=== PATIENT | male | born 1925 | race Caucasian/White ===

== ENCOUNTER 2016-09-23 14:24 | Emergency (ER) | payer BC ==
[~2016-09-23] VITALS: Ht 172.7 cm; Wt 74.4 kg
[~2016-09-23 14:24] MED LIST: BICA50TA6 PO; LEUP1INJ IM; LSX20 PO; ONDA-63 PO
[2016-09-23 14:30] VITALS: TEMP 36.4; Ht 172.7 cm; Wt 74.4 kg
[2016-09-23] MEDS ORDERED: OMEG10007 PO (14:39)
[2016-09-23] MEDS ORDERED: GABA-113 PO (14:39)
[2016-09-23] MEDS ORDERED: WARF5TAB7 PO (14:53)
[2016-09-23] MEDS ORDERED: MULT-506 PO (15:04)
[2016-09-23] MEDS ORDERED: LPRI75 INJ (15:45)
--- NOTE | 2016-09-23 16:08 | DIAGNOSTIC IMAGING REPORT ---
LUMBAR SPINE 5 VIEWS HISTORY: Trauma fall eval for fx COMPARISON: None. FINDINGS: There is no fracture. No subluxation. Significant degenerative disc change. Significant degenerative change of vertebral endplates. IMPRESSION: Significant degenerative change. No acute process. Electronically signed by: Sharad Langston M.D. 09/23/2016 4:07 PM Dictated Date/Time: 09/23/2016 4:06 PM
--- NOTE | 2016-09-23 16:09 | DIAGNOSTIC IMAGING REPORT ---
LEFT CLAVICLE CLINICAL HISTORY: left eval for fx trauma. Pain. COMPARISON: None. DISCUSSION: The bones and joint spaces appear intact. There is no evidence of fracture, dislocation or bony disease. Moderate degenerative change acromioclavicular joint. Cortical margins are intact. IMPRESSION: No acute process. Electronically signed by: Sharad Langston M.D. 09/23/2016 4:08 PM Dictated Date/Time: 09/23/2016 4:07 PM
--- NOTE | 2016-09-23 16:10 | DIAGNOSTIC IMAGING REPORT ---
LEFT ELBOW MIN 3 VIEWS ROUTINE CLINICAL HISTORY: fall eval for fx trauma. Pain. COMPARISON: None. DISCUSSION: The bones and joint spaces appear intact. There is no evidence of fracture, dislocation or bony disease. Mild degenerative change. Bone spur projecting from the proximal ulna. IMPRESSION: No acute bony abnormality Electronically signed by: Sharad Langston M.D. 09/23/2016 4:09 PM Dictated Date/Time: 09/23/2016 4:08 PM
[2016-09-23 16:26] VITALS: BP 116/78; PULSE 83; O2SAT 98
--- NOTE | 2016-09-23 17:39 | EMERGENCY ROOM VISIT NOTE ---
History Report prepared by Khushboo: Adelso Bullard Under the Supervision of: Dr. Lewis Garcia M.D. First contact with patient: 14:43 Chief Complaint: FALL Stated Complaint: SORE CLAVICAL AND LWR RIGHT BACK SIDE-FROM A FALL History of Present Illness The patient is an 89 year old male who presents to the Emergency Room with complaints of a persistent sore clavicle that started yesterday after a fall at 1000. The patient says that he was standing on a step stool trying to get something off the top shelf of a closet, when he lost his balance and fell onto his left arm and shoulder. He lives at the [facility], so he had one of the nurses put a bandage on his left elbow. Ever since the fall, he has had a sore clavicle and lower back pain. He states that his lower back pain is in the muscles. Yesterday, he had bilateral lower back pain, but today, the pain has localized to the lower right side. The patient did have elbow pain for a few hours after the fall, but the pain has gone away. He denies any loss of consciousness, headache, neck pain, hip pain, or hematuria. He did not hit his head. The patient is on Coumadin. He has atrial fibrillation. Source of History: patient Onset: Yesterday at 1000 Position: other (clavicle) Quality: other (soreness) Timing: other (persistent) Associated Symptoms: + back pain (lower), No LOC, No headache, No neck pain , No urinary symptoms (hematuria) Note: Associated symptoms: Had left elbow pain for a few hours after the fall. Denies hip pain. Review of Systems See HPI for pertinent positives & negatives. A total of 10 systems reviewed and were otherwise negative. Past Medical & Surgical Medical Problems: (1) Atrial fibrillation (2) CHF (congestive heart failure) (3) DVT (deep venous thrombosis) (4) H/O blood clots (5) Heart disease (6) Lyme disease (7) Mantle cell lymphoma (8) Non-Hodgkin lymphoma (9) Prostate cancer (10) Shingles Surgical Problems: (1) H/O prostatectomy (2) S/P appendectomy Family History Diabetes mellitus FH: cancer FH: heart disease FH: lung disease Hypertension Social History Smoking Status: Never Smoker Alcohol Use: occasionally Marital Status: Housing Status: lives alone Occupation Status: unemployed Current/Historical Medications Scheduled Bicalutamide (Casodex), 50 MG PO DAILY Calcium Carbonate-Vitamin D (Calcium + D), 1 TAB PO DAILY Fish Oil ([place]-3), 1 CAP PO DAILY Gabapentin (Neurontin), 300 MG PO BID Leuprolide Acetate (Lupron Depot), 7.5 MG INJ Q4MO Multivitamin (Multivitamin), 1 TAB PO DAILY Warfarin Sod (Jantoven), 7.5 MG PO 4XWK Warfarin Sodium (Coumadin), 5 MG PO 3XWK Scheduled PRN Furosemide (Furosemide), 0-40 MG PO DAILY PRN for Weight Gain Of 3# Ondansetron (Ondansetron HCl), 8 MG PO UD PRN for Nausea or Vomiting Allergies Coded Allergies: Acetazolamide (Verified Allergy, Unknown, Diamox Eye Drops ? rxn, 12/14/14) Physical Exam Vital Signs Date Time Temp Pulse Resp B/P Pulse Ox O2 Delivery O2 Flow Rate FiO2 09/23/16 16:26 83 16 116/78 98 09/23/16 14:30 36.4 80 18 119/82 99 Room Air Physical Exam Constitutional: Vital signs reviewed. Eyes: Pupils are equal round reactive to light. Conjunctiva are noninjected. ENT: Pharynx is clear without erythema or exudate. Mucous membranes are moist. Neck supple without meningeal signs. Respiratory: Clear to auscultation bilaterally. Breath sounds are equal bilaterally. Cardiovascular: Regular rate and rhythm. No rubs or gallops. GI: Soft, nondistended and nontender. Bowel sounds are present. Musculoskeletal: No peripheral edema. No lower extremity tenderness. Proximal clavicular tenderness. No sternal tenderness. No midline tenderness to cervical, thoracic, or lumbosacral spine. No hip tenderness. Integumentary: No cyanosis. Skin tear left elbow. Neurological: The patient is awake and alert. No focal deficits. Psychiatric: Normal affect. Medical Decision & Procedures ER Provider Diagnostic Interpretation: X-ray results as stated below per interpretation by me and the radiologist: LUMBAR SPINE 5 VIEWS HISTORY: Trauma fall eval for fx COMPARISON: None. FINDINGS: There is no fracture. No subluxation. Significant degenerative disc change. Significant degenerative change of vertebral endplates. IMPRESSION: Significant degenerative change. No acute process. Electronically signed by: Sharad Langston M.D. 09/23/2016 4:07 PM Dictated Date/Time: 09/23/2016 4:06 PM LEFT ELBOW MIN 3 VIEWS ROUTINE CLINICAL HISTORY: fall eval for fx trauma. Pain. COMPARISON: None. DISCUSSION: The bones and joint spaces appear intact. There is no evidence of fracture, dislocation or bony disease. Mild degenerative change. Bone spur projecting from the proximal ulna. IMPRESSION: No acute bony abnormality Electronically signed by: Sharad Langston M.D. 09/23/2016 4:09 PM Dictated Date/Time: 09/23/2016 4:08 PM LEFT CLAVICLE CLINICAL HISTORY: left eval for fx trauma. Pain. COMPARISON: None. DISCUSSION: The bones and joint spaces appear intact. There is no evidence of fracture, dislocation or bony disease. Moderate degenerative change acromioclavicular joint. Cortical margins are intact. IMPRESSION: No acute process. Electronically signed by: Sharad Langston M.D. 09/23/2016 4:08 PM Dictated Date/Time: 09/23/2016 4:07 PM ED Course 1447: The patient was evaluated in room B2. A complete history and physical exam was performed. 1614: I reevaluated the patient and talked to him about his test results. He is resting comfortably. The patient verbally expressed understanding and agreement of the treatment plan. The patient will be discharged. Medical Decision This is an 89-year-old male who presents with injuries after a fall. Differential diagnosis includes contusion, strain, compression fracture, clavicular fracture. I did perform a limited focused review of portions of the patient's old chart on the electronic medical record. The patient had an INR of 2.2 on August 22. I did evaluate the patient as noted above. Patient had a mechanical fall yesterday. He injured his left arm and his back. He denies any head injury or headache. He denies any neck pain. I did order and personally review the patient's x-rays as described above. The patient does not have any acute fractures. I did discuss the test results with the patient. I did recommend Tylenol for pain. He was given an arm sling and advised follow up with his doctor. He was discharged in good condition. Impression Primary Impression: Left upper arm injury Additional Impressions: Low back pain Fall Scribe Attestation The scribe's documentation has been prepared under my direct and personally reviewed by me in its entirety. I confirm that the note above accurately reflects all work, treatment, procedures, and medical decision making performed by me. Departure Information Dispostion Home / Self-Care Referrals No Doctor, Assigned (PCP) Zechariah Johnson M.D. Forms HOME CARE DOCUMENTATION FORM, IMPORTANT VISIT INFORMATION Patient Instructions Low Back Pain Self Care, My [facility] Additional Instructions You have been examined and treated today on an emergency basis only. This is not a substitute for, or an effort to provide, complete comprehensive medical care. It is impossible to recognize and treat all injuries or illnesses in a single emergency department visit. It is therefore important that you follow up closely with your physician. Call as soon as possible for an appointment. Return for worsening symptoms or if you develop fever, vomiting, headache or numbness or weakness in your arms or legs or any other concerning symptoms. Problem Qualifiers Primary Impression: Left upper arm injury Encounter type: initial encounter Qualified Codes: S49.92XA - Unspecified injury of left shoulder and upper arm, initial encounter Additional Impressions: Low back pain Chronicity: acute Back pain laterality: right Sciatica presence: without sciatica Qualified Codes: M54.5 - Low back pain Fall Encounter type: initial encounter Qualified Codes: W19.XXXA - Unspecified fall, initial encounter
[2016-09-23] MEDS ORDERED: CALC600T9 PO (18:29)
[2016-12-24] MEDS ORDERED: WARF5TAB90 PO (13:59)
[2017-04-22] MEDS ORDERED: LIDOCAINE HCL EXT (11:34)
[2017-04-22] MEDS ORDERED: CMD5 PEG (11:34)
[2017-04-22] MEDS ORDERED: VSC/5 PO (11:34)
== END 2016-09-23 15:35 | disposition home or self-care (01) ==
LOC: C.EDB 14:25
DX: S49.92XA Unspecified injury of left shoulder and upper arm, initial encounter (principal); W19.XXXA Unspecified fall, initial encounter; M54.5 Low back pain; Z79.01 Long term (current) use of anticoagulants; I48.91 Unspecified atrial fibrillation; Z86.718 Personal history of other venous thrombosis and embolism; Z85.46 Personal history of malignant neoplasm of prostate; Z85.72 Personal history of non-Hodgkin lymphomas; Z90.79 Acquired absence of other genital organ(s); Z79.899 Other long term (current) drug therapy

== ENCOUNTER → 2016-10-11 | Outpatient (CLI) | payer BC ==
[~2016-10-11] MED LIST changes: +CALC600T9 PO; +CMD5 PEG; +GABA-113 PO; -LEUP1INJ IM; +LIDOCAINE HCL EXT; +LPRI75 INJ; +MULT-506 PO; +OMEG10007 PO; +VSC/5 PO; +WARF5TAB7 PO; +WARF5TAB90 PO
== END | disposition home or self-care (01) ==
LOC: C.LABSPEC 17:47
PROVIDERS: ATTEND Physician Assistant
DX: S51.802A Unspecified open wound of left forearm, initial encounter (principal); X58.XXXA Exposure to other specified factors, initial encounter; Z51.81 Encounter for therapeutic drug level monitoring; Z79.01 Long term (current) use of anticoagulants; I82.409 Acute embolism and thrombosis of unspecified deep veins of unspecified lower extremity

== ENCOUNTER → 2017-02-13 | Outpatient (CLI) | payer BC ==
[~2017-02-13] MED LIST changes: -WARF5TAB7 PO
--- NOTE | 2017-02-13 17:00 | DIAGNOSTIC IMAGING REPORT ---
L-SPINE MIN 4 VIEWS ROUTINE CLINICAL HISTORY: 89 years-old Male presenting with low back pain, fall one week ago. TECHNIQUE: Frontal, bilateral oblique, and lateral views of the lumbar spine and coned-down lateral view of the lumbosacral junction were obtained. COMPARISON: 10/03/2016. FINDINGS: Vertebral body heights and alignment maintained. Intervertebral disc height loss at L5-S1 as on prior exam. Possible mild bilateral osseous neural foraminal narrowing at L5 S1. Mild endplate concavities could suggest osteoporosis. Mild degenerative changes with anterior osteophytosis. Numerous surgical clips noted in the pelvis, possibly from prior prostatectomy. Atherosclerosis. Nonobstructive bowel gas pattern. IMPRESSION: Degenerative changes of the lumbar spine most severe at L5-S1. Suggestion of osteoporosis without evidence of compression deformity. Electronically signed by: Sameer Owusu M.D. 02/13/2017 4:58 PM Dictated Date/Time: 02/13/2017 4:56 PM
== END | disposition home or self-care (01) ==
LOC: C.RAD1850 16:22
PROVIDERS: ATTEND Internal Medicine Pulmonary Disease
DX: M54.5 Low back pain (principal); Z51.81 Encounter for therapeutic drug level monitoring; Z79.01 Long term (current) use of anticoagulants; I82.409 Acute embolism and thrombosis of unspecified deep veins of unspecified lower extremity

== ENCOUNTER → 2017-02-26 | Outpatient (CLI) | payer BC ==
[2017-02-26 15:42] LABS: BASO % 0.5 %; BASO ABS # 0.03 K/uL (0-0.2); COMPLETE YES; EOS % 3.8 %; HEMATOCRIT 43.9 % (42-52); IG% 0.2 %; LYMPH % 27.3 %; LYMPH ABS # 1.72 K/uL (1.2-3.4); MEAN CELL VOLUME 95.2 fL (80-100); MEAN CORPUSCULAR HEMOGLOBIN 30.6 pg (25-34); MEAN CORPUSCULAR HGB CONC 32.1 g/dl (32-36); MEAN PLATELET VOLUME 11.4 fL (7.4-10.4); MONO % 7.9 %; NEUT % 60.3 %; PLATELET COUNT 212 K/uL (130-400); RED BLOOD COUNT 4.61 M/uL (4.7-6.1)
[2017-02-26 16:08] LABS: ALT/SGPT 36 U/L (12-78); BLOOD UREA NITROGEN 26 mg/dl (7-18); BUN/CREATININE RATIO 20.2 (10-20); CALCIUM 9.3 mg/dl (8.5-10.1); CARBON DIOXIDE 32 mmol/L (21-32); CHLORIDE 103 mmol/L (98-107); GLUCOSE 123 mg/dl (70-99); POTASSIUM 4.3 mmol/L (3.5-5.1); SODIUM 140 mmol/L (136-145)
[2017-02-26 16:10] LABS: ALKALINE PHOSPHATASE 179 U/L (45-117); AST/SGOT 31 U/L (15-37)
[2017-02-26 16:44] LABS: URINE APPEARANCE CLEAR (CLEAR); URINE BILIRUBIN NEG (NEG); URINE COLOR YELLOW; URINE EPITHELIAL CELL AUTO >30 /lpf (0-5); URINE NITRITE NEG (NEG); URINE SPECIFIC GRAVITY 1.021 (1.000-1.030); UROBILINOGEN NEG (NEG)
[2017-02-26 16:49] LABS: MANUAL MICROSCOPIC REQUIRED? NO; REVIEW REQ? NO
== END | disposition home or self-care (01) ==
LOC: C.LAB1850 14:13
PROVIDERS: ATTEND Physician Assistant Medical
DX: R39.9 Unspecified symptoms and signs involving the genitourinary system (principal); R53.83 Other fatigue

== ENCOUNTER 2017-03-01 16:09 | Emergency (ER) | payer BC ==
[~2017-03-01] VITALS: Ht 175.3 cm; Wt 78.2 kg
[~2017-03-01 16:09] MED LIST changes: -CMD5 PEG; -LIDOCAINE HCL EXT; -VSC/5 PO
[2017-03-01 16:24] VITALS: TEMP 36.4; Ht 175.3 cm; Wt 78.2 kg
[2017-03-01] MEDS ORDERED: SODIUM CHLORIDE 0.9% 1000ML 1,000 ML IV ONE (17:57)
[2017-03-01] MEDS ORDERED: SODIUM CHLORIDE 0.9% 1000ML 500 ML IV STA (17:57)
--- NOTE | 2017-03-01 18:15 | DIAGNOSTIC IMAGING REPORT ---
CHEST ONE VIEW PORTABLE HISTORY: Atypical CHEST PAIN COMPARISON: Chest 04/05/2016. FINDINGS: No focal lung consolidations to suggest pneumonia. No evidence for pulmonary edema. No pleural effusions. No pneumothorax. The heart remains mildly enlarged. Old, healed right rib fractures. IMPRESSION: Stable mild cardiomegaly. No acute process within the chest. Electronically signed by: Joseph Cr M.D. 03/01/2017 6:14 PM Dictated Date/Time: 03/01/2017 6:13 PM
[2017-03-01] MEDS ORDERED: WARF5TAB90 PO (18:29)
[2017-03-01 18:44] LABS: POINT OF CARE PRO-BNP 1632 pg/ml (0-1800); POINT OF CARE TROPONIN I < 0.030 ng/ml (0-0.045)
[2017-03-01 18:49] LABS: URINE APPEARANCE CLEAR (CLEAR); URINE BILIRUBIN NEG (NEG); URINE COLOR YELLOW; URINE EPITHELIAL CELL AUTO >30 /lpf (0-5); URINE NITRITE NEG (NEG); URINE PH 6.5 (4.5-7.5); URINE SPECIFIC GRAVITY 1.013 (1.000-1.030); UROBILINOGEN NEG (NEG)
[2017-03-01 18:52] LABS: MANUAL MICROSCOPIC REQUIRED? NO; REVIEW REQ? NO
[2017-03-01 19:11] LABS: BUN/CREATININE RATIO 21.1 (10-20); CALCIUM 9.7 mg/dl (8.5-10.1); CREATININE 1.4 mg/dl (0.60-1.40); POTASSIUM 4.4 mmol/L (3.5-5.1)
[2017-03-01 21:01] VITALS: BP 160/103; PULSE 82; O2SAT 98
--- NOTE | 2017-03-01 23:57 | EMERGENCY ROOM VISIT NOTE ---
History Report prepared by Khushboo: Yessi Dawn Under the Supervision of: Dr. Farshad Ku M.D. First contact with patient: 17:47 Chief Complaint: HYPOTENSION Stated Complaint: LOW BP,MT&W,LIGHTHEADED,DEHYDRATED History of Present Illness The patient is an 89 year old male who presents to the Emergency Room with complaints of persistent low blood pressure starting 4 days ago. He has had episodes of low blood pressure 3-4 times in the past. He saw his PCP yesterday and had blood work. He received a call today saying that he should go to the ED over concerns of dehydration and kidney problems. He reports feeling lightheaded at times especially with standing up. He has had dysuria for a couple weeks. He denies any fever, black or bloody stools, chest pain, SOB, or abdominal pain. He denies any recent falls or injury. He believes that he is keeping up with his fluids, but his family does not think he does. He has a history of CHF and is on a diuretic. He does not have more leg swelling than usual. He denies any history of diabetes. Source of History: patient, family Onset: 4 days ago Position: other (global) Quality: other (low blood pressure) Timing: other (persistent) Associated Symptoms: + urinary symptoms, No fevers, No chest pain, No SOB, No abdominal pain, No melena, No hematochezia Note: Pt reports feeling lightheaded, dysuria. Review of Systems See HPI for pertinent positives & negatives. A total of 10 systems reviewed and were otherwise negative. Past Medical & Surgical Medical Problems: (1) Atrial fibrillation (2) CHF (congestive heart failure) (3) DVT (deep venous thrombosis) (4) H/O blood clots (5) Heart disease (6) Lyme disease (7) Mantle cell lymphoma (8) Non-Hodgkin lymphoma (9) Prostate cancer (10) Shingles Surgical Problems: (1) H/O prostatectomy (2) S/P appendectomy Old medical records were reviewed. Nurse's notes were reviewed and I agree with. Family History Diabetes mellitus FH: cancer FH: heart disease FH: lung disease Hypertension Social History Smoking Status: Never Smoker Alcohol Use: occasionally Marital Status: Housing Status: lives alone Occupation Status: unemployed Current/Historical Medications Scheduled Bicalutamide (Casodex), 50 MG PO DAILY Calcium Carbonate-Vitamin D (Calcium + D), 1 TAB PO DAILY Fish Oil ([place]-3), 1 CAP PO DAILY Gabapentin (Neurontin), 300 MG PO BID Leuprolide Acetate (Lupron Depot), 7.5 MG INJ Q4MO Multivitamin (Multivitamin), 1 TAB PO DAILY Warfarin Sodium (Coumadin), 5 MG PO 6XWK Warfarin Sodium (Coumadin), 7.5 MG PO tues Scheduled PRN Furosemide (Furosemide), 0-40 MG PO DAILY PRN for Weight Gain Of 3# Ondansetron (Ondansetron HCl), 8 MG PO UD PRN for Nausea or Vomiting Allergies Coded Allergies: Acetazolamide (Verified Allergy, Unknown, Diamox Eye Drops ? rxn, 03/01/17) Physical Exam Vital Signs Date Time Temp Pulse Resp B/P (MAP) Pulse Ox O2 Delivery O2 Flow Rate FiO2 03/01/17 21:01 82 18 160/103 98 03/01/17 18:53 83 18 179/91 97 Room Air 03/01/17 16:24 36.4 77 16 130/82 100 Room Air Physical Exam General: Non ill appearing older male in no acute distress. Well developed well nourished, breathing comfortably on room air. Normal speech HEENT: Normal cephalic atraumatic. Pupils are equal round and reactive to light. Extraocular movements are intact. Oropharynx is pink with moist mucous membranes. No swelling of the mouth lips or tongue. Neck: Supple with a midline trachea. No meningeal signs or stiffness, no JVD or bruits. No Stridor. Chest: Clear to auscultation bilaterally. No wheezes or rhonchi. No increased work of breathing. Heart: regular rate and rhythm. Abdomen: Soft nontender, nondistended without rebound guarding or rigidity. Extremities: No cyanosis clubbing. Mild baseline peripheral edema. No calf tenderness or assymetry Spine/Back. Non tender to palpation. No CVA tenderness Skin: Good turgor without rashes. Neurologic exam: Cranial nerves two through 12 are intact. Motor and sensation are intact and symmetrical throughout. Medical Decision & Procedures ER Provider Diagnostic Interpretation: X-ray results as stated below per interpretation by me and the radiologist: CHEST ONE VIEW PORTABLE HISTORY: Atypical CHEST PAIN COMPARISON: Chest 04/05/2016. FINDINGS: No focal lung consolidations to suggest pneumonia. No evidence for pulmonary edema. No pleural effusions. No pneumothorax. The heart remains mildly enlarged. Old, healed right rib fractures. IMPRESSION: Stable mild cardiomegaly. No acute process within the chest. Electronically signed by: Joseph Cr M.D. 03/01/2017 6:14 PM Dictated Date/Time: 03/01/2017 6:13 PM Laboratory Results 03/01/17 18:18 Test 03/01/17 18:18 03/01/17 18:25 Anion Gap 7.0 mmol/L (3-11) Est Creatinine Clear Calc Drug Dose 35.8 ml/min Estimated GFR () 51.3 Estimated GFR (Non- 44.2 BUN/Creatinine Ratio 21.1 (10-20) Calcium Level 9.7 mg/dl (8.5-10.1) Total Bilirubin 0.8 mg/dl (0.2-1) Direct Bilirubin 0.2 mg/dl (0-0.2) Aspartate Amino Transf (AST/SGOT) 30 U/L (15-37) Alanine Aminotransferase (ALT/SGPT) 33 U/L (12-78) Alkaline Phosphatase 182 U/L (45-117) Total Protein 7.7 gm/dl (6.4-8.2) Albumin 3.8 gm/dl (3.4-5.0) Lipase 173 U/L (73-393) Urine Color YELLOW Urine Appearance CLEAR (CLEAR) Urine pH 6.5 (4.5-7.5) Urine Specific [place] 1.013 (1.000-1.030) Urine Protein NEG (NEG) Urine Glucose (UA) NEG (NEG) Urine Ketones NEG (NEG) Urine Occult Blood NEG (NEG) Urine Nitrite NEG (NEG) Urine Bilirubin NEG (NEG) Urine Urobilinogen NEG (NEG) Urine Leukocyte Esterase SMALL (NEG) Urine WBC (Auto) 10-30 /hpf (0-5) Urine RBC (Auto) 0-4 /hpf (0-4) Urine Hyaline Casts (Auto) 1-5 /lpf (0-5) Urine Epithelial Cells (Auto) >30 /lpf (0-5) Urine Bacteria (Auto) NEG (NEG) Bedside Troponin I < 0.030 ng/ml (0-0.045) PE-[id number]-[id number]-Type Natriuretic Peptide 1632 pg/ml (0-1800) Laboratory studies as stated above per my review. Medications Administered Medications (Trade) Dose Ordered Sig/Cj Route Start Time Stop Time Status Last Admin Dose Admin Sodium Chloride 500 ml @ 999 mls/hr Q31M STAT IV 03/01/17 17:57 03/01/17 18:27 DC 03/01/17 18:52 999 MLS/HR Sodium Chloride 1,000 ml @ 150 mls/hr Q6H40M ONCE IV 03/01/17 17:57 03/01/17 21:23 DC 03/01/17 19:23 150 MLS/HR ECG Indication: weakness Rate (beats per minute): 76 Rhythm: atrial fibrillation Findings: PVC, other (nonspecific T wave abnormality) Comparison ECG Date: 12-Oct-2015 Change: no significant change ED Course 174: Past medical records reviewed. The patient was evaluated in room C12A, and a complete history and physical examination were performed. 1756: NSS 1000 ml @ 150 mls/hr IV, NSS 500 ml @ 999 mls/hr IV. 2018: Upon reevaluation, the patient is doing well. I discussed the results and treatment plan with him and his family. They verbalized agreement of the treatment plan. The patient was discharged home. Medical Decision Differentials include, but are not limited to; dehydration, electrolyte or metabolic abnormality, arrhythmia, infection, anemia. This patient comes in as described above. He was placed on crystal report developer and room [facility] by his doctor for IV hydration. His BUN/creatinine been mildly elevated compared to baseline. He apparently was hypotensive early the week but is normotensive here. He looks great and he has no complaints. He has had no chest pain or shortness of breath . No fever or chills or anything to suggest infection. His white count earlier today was normal. His hemoglobin was stable as well. He had an INR checked yesterday was in the 3 range. he's had no fall or trauma . he's had no blood or melena in his stool. He has had no abdominal pain or anything to suggest he is losing blood anywhere. EKG shows baseline A. fib but has no acute ischemic changes or other arrhythmia. He has no other significant lab abnormalities. He was gently hydrated with a 500 mL IV normal saline bolus and received approximately about 750 mL total. His lungs were are clear and his chest x-ray does not show overt CHF. He feels good and would like to go home. I will discharge him home. He should increase his fluid intake slightly over this weekend and return if: fever or chills, worsening of symptoms, any new problems or concerns and follow-up with his doctor Saturday for recheck. He was happy the plan and discharged to home. Medication Reconcilliation Current Medication List: was personally reviewed by me Blood Pressure Screening Patient's blood pressure: Normal blood pressure Blood pressure disposition: Did not require urgent referral Impression Primary Impression: Dehydration Scribe Attestation The scribe's documentation has been prepared under my direction and personally reviewed by me in its entirety. I confirm that the note above accurately reflects all work, treatment, procedures, and medical decision making performed by me. Departure Information Dispostion Home / Self-Care Referrals Zechariah Johnson M.D. (PCP) Forms HOME CARE DOCUMENTATION FORM, IMPORTANT VISIT INFORMATION, WORK / SCHOOL INSTRUCTIONS Patient Instructions My [facility] Additional Instructions Rest. Increased fluid intake over the weekend Be careful getting up and down. Return if: Worsening of symptoms, chest pain, shortness of breath, dizziness, blood in your stool, pain, any new problems or concerns Follow-up with your doctor on Saturday for recheck
[2017-04-22] MEDS ORDERED: LIDOCAINE HCL EXT (11:34)
[2017-04-22] MEDS ORDERED: VSC/5 PO (11:34)
[2017-04-22] MEDS ORDERED: CMD5 PEG (11:34)
== END 2017-03-01 21:01 | disposition home or self-care (01) ==
LOC: C.EDB 16:10 → C.EDC 21:01
DX: E86.0 Dehydration (principal); I50.9 Heart failure, unspecified; I48.91 Unspecified atrial fibrillation; Z86.718 Personal history of other venous thrombosis and embolism; Z85.72 Personal history of non-Hodgkin lymphomas; Z85.46 Personal history of malignant neoplasm of prostate; Z90.79 Acquired absence of other genital organ(s); Z83.3 Family history of diabetes mellitus; Z80.9 Family history of malignant neoplasm, unspecified; Z82.49 Family history of ischemic heart disease and other diseases of the circulatory system; Z79.01 Long term (current) use of anticoagulants; Z79.899 Other long term (current) drug therapy; R79.9 Abnormal finding of blood chemistry, unspecified

== ENCOUNTER → 2017-03-01 | Outpatient (CLI) | payer BC ==
[2017-03-01 15:04] LABS: BLOOD UREA NITROGEN 30 mg/dl (7-18); BUN/CREATININE RATIO 20.1 (10-20); CALCIUM 9.6 mg/dl (8.5-10.1); CARBON DIOXIDE 28 mmol/L (21-32); CHLORIDE 104 mmol/L (98-107); GLUCOSE 159 mg/dl (70-99); POTASSIUM 4.4 mmol/L (3.5-5.1); SODIUM 140 mmol/L (136-145)
== END | disposition home or self-care (01) ==
LOC: C.LAB1850 13:44
PROVIDERS: ATTEND Physician Assistant Medical
DX: R79.9 Abnormal finding of blood chemistry, unspecified (principal)

== ENCOUNTER → 2017-04-04 | Outpatient (CLI) | payer BC ==
[2017-04-02 13:59] LABS: ALT/SGPT 28 U/L (12-78); BLOOD UREA NITROGEN 23 mg/dl (7-18); BUN/CREATININE RATIO 20.5 (10-20); CALCIUM 9.5 mg/dl (8.5-10.1); CARBON DIOXIDE 30 mmol/L (21-32); CHLORIDE 104 mmol/L (98-107); GLUCOSE 99 mg/dl (70-99); POTASSIUM 3.8 mmol/L (3.5-5.1); SODIUM 140 mmol/L (136-145)
[2017-04-02 14:09] LABS: ALKALINE PHOSPHATASE 163 U/L (45-117); AST/SGOT 33 U/L (15-37); FREE PSA 0.03 ng/ml; PROSTATE SPECIFIC ANTIGEN 0.284 ng/ml (0.000-4.000)
[~2017-04-04] MED LIST changes: +CEPH500C PO; +CMD5 PEG; +ENOX40IN SQ; +LIDOCAINE HCL EXT; +OPTIRAY 320 IV PRN; +PHEN-775 PO; +VSC/5 PO
--- NOTE | 2017-04-04 09:13 | DIAGNOSTIC IMAGING REPORT ---
ADDENDUM Possible focus of asymmetric enhancement at the right side of the junction of the bladder base/urethra best seen on image 402. This measures approximately 12 mm. This could be due to collapse of the normal bladder base. However, a focal area of tumor recurrence given the patient's history of prostate malignancy cannot be excluded. This may account for the patient's possible bladder outlet obstruction. Direct visualization is recommended for further evaluation. This finding was called/faxed to the referring physician's office. Electronically signed by: Joseph Cr M.D. 04/04/2017 9:22 AM Dictated Date/Time: 04/04/2017 9:19 AM ORIGINAL REPORT ABDOMEN AND PELVIS CT WITH AND WITHOUT IV CONTRAST, UROGRAM PROTOCOL CT DOSE: 1471.26 mGycm HISTORY: HEMATURIA,INCONTINENCE,NEOPLASM OF PROSTATE TECHNIQUE: Multiaxial CT images of the abdomen and pelvis were performed both before and after the use of intravenous contrast to evaluate the urinary system. Maximal intensity projection images were performed at the workstation by the radiologist. A dose lowering technique was utilized adhering to the principles of ALARA. COMPARISON STUDY: Abdomen and pelvis CT 08/10/2010. FINDINGS: No renal or ureteral calculi. No hydronephrosis. No suspicious filling defects seen within the bilateral renal collecting systems, ureters, or bladder. Of note, the distal bilateral ureters and bladder not well opacified. Moderate to severe bladder distention. Old mild superior endplate compression deformity at L2. A 4 mm subpleural nodule within the right middle lobe on image 28. Mild dependent changes seen at the lung bases. Calcified granuloma within the left lower lobe. Bilateral posterior pleural thickening. No suspicious lytic or blastic osseous lesions. The heart is mildly enlarged. There are few diverticula at the duodenum. Calcified gallstone. Punctate calcified granuloma seen within the spleen. Slightly nodular contour to the liver consistent with cirrhosis. The adrenal glands and pancreas are unremarkable. Mild bilateral cortical renal scarring. Otherwise, the kidneys enhance normally. Subcentimeter retroperitoneal lymph nodes do not meet CT criteria for pathologic involvement. Moderate calcified plaque within the arterial structures. No pelvic lymphadenopathy. Postoperative changes consistent with prior prostatectomy and pelvic lymph node dissection. Colonic diverticulosis. No bowel wall thickening or obstruction. IMPRESSION: 1. No renal or ureteral stones. No hydronephrosis. 2. No suspicious filling defects seen within the opacified bilateral renal collecting systems, ureters, or bladder as described above. 3. Moderate to severe bladder distention. 4. Prior prostatectomy. 5. Cholelithiasis. 6. Slightly nodular contour to the liver consistent with cirrhosis. 7.. Colonic diverticulosis Electronically signed by: Joseph Cr M.D. 04/04/2017 9:12 AM Dictated Date/Time: 04/04/2017 9:00 AM
[2017-04-06 10:32] LABS: TESTOSTERONE,TOTAL <1 ng/dL (250-1100)
== END | disposition home or self-care (01) ==
LOC: C.CTS 08:21
PROVIDERS: ATTEND Urology
DX: C61 Malignant neoplasm of prostate (principal); R31.29 Other microscopic hematuria; R32 Unspecified urinary incontinence; K57.90 Diverticulosis of intestine, part unspecified, without perforation or abscess without bleeding; K80.20 Calculus of gallbladder without cholecystitis without obstruction; N32.89 Other specified disorders of bladder

== ENCOUNTER → 2017-04-08 | Outpatient (CLI) | payer BC ==
[~2017-04-08] MED LIST changes: -CEPH500C PO; -ENOX40IN SQ; -OPTIRAY 320 IV PRN; -PHEN-775 PO
== END | disposition home or self-care (01) ==
LOC: C.LABSPEC 17:29
PROVIDERS: ATTEND Urology
DX: C61 Malignant neoplasm of prostate (principal); R31.29 Other microscopic hematuria; R32 Unspecified urinary incontinence

== ENCOUNTER → 2017-04-22 | Outpatient (CLI) | payer BC ==
--- NOTE | 2017-04-22 14:19 | DIAGNOSTIC IMAGING REPORT ---
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 COMPARISON: PET CT 09/28/2015. FINDINGS: Possible small foci of radiotracer uptake seen within the right anterior and lateral ribs. These have the typical appearance of old fractures. Sternoclavicular, right knee, and ankle radiotracer uptake favors degenerative change. Small focal areas of radiotracer uptake seen within the thoracic and lumbar spine which is nonspecific but also favors degenerative change. No suspicious areas of radiotracer uptake seen within the axial or appendicular skeleton. IMPRESSION: 1. No suspicious areas of radiotracer uptake seen within the axial or appendicular skeleton to suggest metastatic disease. 2. Additional foci of radiotracer uptake favor posttraumatic and degenerative changes. Electronically signed by: Joseph Cr M.D. 04/22/2017 2:18 PM Dictated Date/Time: 04/22/2017 2:16 PM
== END | disposition home or self-care (01) ==
LOC: C.NUCL 10:00
PROVIDERS: ATTEND Urology
DX: C61 Malignant neoplasm of prostate (principal); R31.0 Gross hematuria; R33.9 Retention of urine, unspecified; R93.7 Abnormal findings on diagnostic imaging of other parts of musculoskeletal system

== ENCOUNTER → 2017-05-10 | Outpatient (CLI) | payer BC ==
[~2017-05-10] MED LIST changes: +CEPH500C PO; -CMD5 PEG; +ENOX40IN SQ; +HYDR-5688 PO; -ONDA-63 PO; +PHEN-775 PO; -WARF5TAB90 PO
[2017-05-10 09:50] LABS: INR 1.1 (0.9-1.1); PROTHROMBIN TIME (PATIENT) 11.4 SECONDS (9.0-12.0)
== END ==
LOC: C.LABVPSUA 09:10
PROVIDERS: ATTEND Internal Medicine Critical Care Medicine
DX: I48.91 Unspecified atrial fibrillation (principal)

== ENCOUNTER → 2017-05-13 | Outpatient (CLI) | payer BC ==
[~2017-05-13] MED LIST changes: +LEUP30IN3 IM; +WARF5TAB90 PO; +WARF7.5T PO
[2017-05-13 10:28] LABS: INR 1.1 (0.9-1.1); PROTHROMBIN TIME (PATIENT) 12.2 SECONDS (9.0-12.0)
== END | disposition home or self-care (01) ==
LOC: C.LABVPSUA 09:38
PROVIDERS: ATTEND Internal Medicine Critical Care Medicine
DX: I48.91 Unspecified atrial fibrillation (principal)

== ENCOUNTER → 2017-05-16 | Outpatient (CLI) | payer BC ==
[2017-05-16 09:26] LABS: INR 1.6 (0.9-1.1)
== END | disposition home or self-care (01) ==
LOC: C.LABVPSUA 08:53
PROVIDERS: ATTEND Internal Medicine Critical Care Medicine
DX: I48.91 Unspecified atrial fibrillation (principal)

== ENCOUNTER → 2017-06-03 | Outpatient (CLI) | payer BC ==
[~2017-06-03] MED LIST changes: -CEPH500C PO; -ENOX40IN SQ; -HYDR-5688 PO; -LIDOCAINE HCL EXT; -LPRI75 INJ; +OPTIRAY 320 IV PRN; -PHEN-775 PO; -VSC/5 PO
--- NOTE | 2017-06-03 15:20 | DIAGNOSTIC IMAGING REPORT ---
ADDENDUM ADDITIONAL FINDINGS: Upon further review a focal segment of small bowel is noted in the superior anterior pelvis which demonstrate significant wall thickening. The segment of involved small bowel is not extensive in length measuring approximately less than 10 cm. No narrowing of the lumen. Mild overall expansion of the bowel diameter. No other sites of small bowel wall thickening evident. Mild perienteric fat stranding most evident along the mesenteric aspect where there is associated multiple small lymph nodes. ADDITIONAL IMPRESSION: 5. Focal segment of small bowel wall thickening with associated prominent lymph nodes and mild fat infiltration. Differential considerations include lymphomatous involvement versus enteritis. Neoplastic involvement by lymphoma is favored given the appearance and focality. This finding was discussed by Dr. Carpenter with Dr. Gillespie on the . Electronically signed by: Sameer Owusu M.D. 06/04/2017 6:04 PM Dictated Date/Time: 06/04/2017 6:02 PM ORIGINAL REPORT ABD/PELVIS IV AND ORAL CONT CLINICAL HISTORY: 89 years-old Male presenting with LYMPHOMA. TECHNIQUE: Multidetector CT of the abdomen and pelvis was performed after the administration of oral and intravenous contrast. IV contrast: 93 mL of Optiray 320. A dose lowering technique was used consistent with the principles of ALARA (as low as reasonably achievable). COMPARISON: 04/04/2017. CT DOSE (mGy.cm): The estimated cumulative dose is 692.20 mGy.cm. FINDINGS: Instrument Inspector topogram: Unremarkable. Lung bases: Minimal dependent changes likely atelectasis. Mosaic attenuation at the lung bases suggest small airways disease. Calcified granuloma noted in the left lower lobe. Multichamber enlargement of the heart. Aortic valve, mitral annular, and coronary artery calcification. No pericardial or pleural effusion. Liver: Mild macronodular undersurface of the liver. Biliary: No intrahepatic or extrahepatic biliary ductal dilatation. Gallbladder contains gallstones. Pancreas: Moderate parenchymal atrophy. Spleen: Multiple parenchymal calcification suggest prior granulomatous infection. Adrenal glands: Normal. Kidneys and ureters: Normal. No hydronephrosis. Bladder: Incompletely evaluated secondary to underdistention. Allowing for underdistention, circumferential bladder wall thickening is suggested. Focal hypodensity now evident at the ureteral anastomosis where previously hyperenhancement was seen. No nodular enhancement at the anastomosis. Pelvic organs: Postsurgical changes of prostatectomy. Bowel: Diverticulosis of the sigmoid and descending colon. Moderate stool burden. No bowel obstruction. Peritoneal cavity: No free fluid or intraperitoneal gas. Lymph nodes: Few prominent mesenteric lymph nodes noted in the superior pelvis, similar to prior exam although direct comparison is slightly difficult due to the change in distribution from movement of small bowel. The largest lymph node measures 9 mm in short axis (series 7 image 296). Scattered subcentimeter retroperitoneal lymph nodes noted unchanged from prior exam. Vasculature: Atherosclerosis of the normal caliber abdominal aorta. IVC patent. Atherosclerosis narrows the origins of the major branch vessels. Abdominal wall: Gynecomastia noted on the left. Musculoskeletal: Degenerative changes of the spine. Sclerosis in the lateral right fifth through eighth ribs in a linear distribution likely prior fractures. No destructive osseous lesion. Severe osteopenia. IMPRESSION: 1. Mildly prominent mesenteric lymph nodes, which are not pathologically enlarged by CT size criteria. Attention on follow-up. No other evidence to suggest lymphadenopathy in the abdomen or pelvis. 2. Interval resolution of previously noted nodular hyperenhancement at the ureteral anastomosis. 3. Postsurgical changes of prostatectomy. 4. Bladder wall thickening may be secondary to prior chronic outlet obstruction. Electronically signed by: Sameer Owusu M.D. 06/03/2017 3:18 PM Dictated Date/Time: 06/03/2017 3:11 PM
--- NOTE | 2017-06-03 15:45 | DIAGNOSTIC IMAGING REPORT ---
CHEST CT WITH CONTRAST HISTORY: Follow-up study in a patient with lymphoma LYMPHOMA TECHNIQUE: Multiaxial CT images of the chest were performed following the intravenous administration of contrast. A dose lowering technique was utilized adhering to the principles of ALARA. COMPARISON: CT chest 10/27/2014, PET CT 11/01/2014 and 09/28/2015. FINDINGS: No dominant thyroid nodule identified. There is no pathologic adenopathy identified. Heart is moderately enlarged. Coronary arterial calcifications are noted. Calcifications of the aortic annulus are also present. Moderate plaquing at the origin of the left common carotid artery appears to cause approximately 50% narrowing. The opacified pulmonary arterial tree is unremarkable. There is no pathologically enlarged adenopathy about the chest identified. There is no pneumothorax or pleural effusion. Calcified glomus are noted. Mild dependent bibasilar atelectasis. Linear subsegmental opacities of the lung bases may reflect atelectasis or areas of pleural-parenchymal scarring. There are a few pleural-based areas of nodular density within the lungs bilaterally. For example there is a pleural-based 3 mm pulmonary nodule right middle lobe image 183 series 6 which is unchanged. 2 mm nodule of the right lung apex, image 28 of series 6 also unchanged. No new or suspicious pulmonary nodules or masses. The central airways are patent. Cholelithiasis without CT evidence of acute cholecystitis. No acute abnormality of the imaged upper abdomen. Soft tissues are unremarkable. There are calcifications throughout the spleen compatible with prior granulomatous disease. No suspicious lytic or blastic bony lesions. Multilevel endplate degenerative changes of the spine. IMPRESSION: 1. No acute intrathoracic abnormality identified. No pathologic adenopathy. 2. Evidence of prior granulomatous disease. 3. Cardiomegaly. Electronically signed by: Jesús Guerra M.D. 06/03/2017 3:44 PM Dictated Date/Time: 06/03/2017 3:37 PM
== END | disposition home or self-care (01) ==
LOC: C.CTS 14:23
PROVIDERS: ATTEND Internal Medicine Hematology & Oncology
DX: Z85.46 Personal history of malignant neoplasm of prostate (principal); I51.7 Cardiomegaly; R59.9 Enlarged lymph nodes, unspecified

== ENCOUNTER → 2017-06-12 | Outpatient (CLI) | payer BC ==
[~2017-06-12] MED LIST changes: +GADAVIST IV PRN; -OPTIRAY 320 IV PRN
--- NOTE | 2017-06-12 12:56 | DIAGNOSTIC IMAGING REPORT ---
PROSTATE MRI COMBO CLINICAL HISTORY: 89 years-old Male presenting with PROSTATE CA. TECHNIQUE: Multisequence, multiplanar MR imaging of the prostate was performed before and after the administration of intravenous contrast. IV contrast: 7.5 cc of Gadavist area COMPARISON: Abdomen and pelvis CT 06/03/2017. FINDINGS: The patient is status post prostatectomy. Metallic artifact of the prostatectomy bed results in suboptimal evaluation. There are no areas of abnormal enhancement at the prostatectomy bed to suggest recurrent disease. Mild smooth enhancement at the ureteral anastomosis. No nodular areas of enhancement identified. No soft tissue masses identified within the prostatectomy bed. Trace pelvic free fluid. Colonic diverticulosis. No pelvic lymphadenopathy. Fat-containing left inguinal hernia. Axial T2 fat sat sequences demonstrate multiple hyperintense lesions seen within the lower lumbar spine, pelvis/sacrum, and bilateral proximal femurs consistent with metastatic disease. Dominant lesion within the left side of the sacrum measures 2.6 cm. There is a focal segment of thickened small bowel seen within the mid lower abdomen. There is mild surrounding edema. IMPRESSION: 1. No evidence for recurrent/residual disease within the prostatectomy bed. 2. Multiple metastatic lesions seen throughout the visualized osseous structures of the pelvis, sacrum, and bilateral femurs. 3. Redemonstration of the focal thickened loop of small bowel within the midabdomen. This may correspond to the patient's history of lymphoma. Electronically signed by: Joseph Cr M.D. 06/12/2017 12:54 PM Dictated Date/Time: 06/12/2017 12:33 PM
== END | disposition home or self-care (01) ==
LOC: C.MRIBC 10:51
PROVIDERS: ATTEND Radiology Radiation Oncology
DX: C61 Malignant neoplasm of prostate (principal); C79.89 Secondary malignant neoplasm of other specified sites; C79.51 Secondary malignant neoplasm of bone

== ENCOUNTER → 2017-07-03 | Outpatient (CLI) | payer BC ==
[~2017-07-03] MED LIST changes: -GADAVIST IV PRN
--- NOTE | 2017-07-03 14:00 | DIAGNOSTIC IMAGING REPORT ---
PET/CT CLINICAL HISTORY: Unspecified neoplasm of bone. COMPARISON STUDY: CT scan of the chest, abdomen, and pelvis dated 06/03/2017. Nuclear bone scan dated 04/22/2017. PET/CT dated 09/28/2015. Prostate MRI dated 06/12/2017. TECHNIQUE: One hour following the IV administration of 10.27 mCi of F-18 NaF, whole body PET/CT examination was performed from the vertex to the feet. Noncontrast CT is performed for the purposes of anatomic correlation and attenuation correction. Note that this does not reflect a diagnostic CT examination. Images were reviewed on a separate [employer] independent workstation. Fused images were obtained. Standard uptake values reported are maximum values within the region of interest expressed in gm/mL. FINDINGS: PET FINDINGS: NaF skeletal findings: There is diffusely heterogeneous marrow activity. No focal lesion is clearly identified. This may represent diffuse disease when correlated with the pelvic MRI but is indeterminant. Disease was much better seen by MRI. Typically degenerative activity seen throughout the spine. Activity is identified within numerous nonacute right-sided rib fractures. Arthritic activity is seen in the ankle joints. Unenhanced CT images: The brain parenchyma is normal as visualized noting age-related involutional change. The bony orbits are grossly intact. There are bilateral ocular lens implants. There is mild to moderate mucosal thickening within the left maxillary antrum. Trace mucosal thickening is seen in the right maxillary antrum. The remaining paranasal sinuses are clear. The mastoid air cells are well pneumatized. The salivary and thyroid glands are normal as visualized. No cervical lymphadenopathy is seen. There is atherosclerotic calcification of the carotid bulbs. There is moderate atherosclerotic calcification of the thoracic aorta which is normal in caliber. The heart is enlarged and without pericardial effusion. The coronary arteries are densely calcified. There is no mediastinal, hilar, or axillary lymphadenopathy. No airspace consolidation or pleural effusion is seen. There is bibasilar scarring versus atelectasis. Scattered calcified granulomas are identified. A 3 mm pleural-based nodule is noted in the right middle lobe on image #132. The unenhanced liver is grossly unremarkable. There are numerous calcified gallstones. The unenhanced pancreas is atrophic. The spleen is normal in size and there are numerous calcified splenic granulomas. The kidneys are atrophic and without hydronephrosis. The adrenal glands are grossly unremarkable. The abdominal aorta is normal in caliber noting advanced atherosclerotic calcification. No bowel obstruction is seen. There is a thick walled loop of small bowel in the pelvis seen on image #222. There are enlarged mesenteric lymph nodes surrounding this abnormal loop. The largest is seen on image #212 and measures 4.0 x 2.2 cm. There is a small duodenal diverticulum. There is advanced sigmoid diverticulosis without CT evidence of acute diverticulitis. The bladder is normal as visualized. The prostate gland is surgically absent. There is no retroperitoneal, pelvic sidewall, or inguinal lymphadenopathy. The skeletal structures are osteopenic. Multilevel degenerative change is present throughout the spine. There is a compression deformity of L2. There are numerous nonacute right-sided rib fractures. The lower extremity soft tissues are normal as imaged. IMPRESSION: 1. There is diffusely heterogeneous/patchy marrow activity, greatest throughout the spine and involving the bony pelvis. No focal lesion is clearly identified. This is nonspecific and likely represents diffuse osseous metastatic disease when correlated with the recent pelvic MRI. These lesions were much better seen by MRI. 2. Again seen is a markedly thick-walled loop of distal ileum in the pelvis. There is increasing surrounding mesenteric lymphadenopathy, and the appearance is highly concerning for lymphoma. Ileitis is considered much less likely due to the time course and progressive adenopathy. 3. Cholelithiasis. 4. Additional findings as above. Electronically signed by: Bashir Milner M.D. 07/03/2017 1:59 PM Dictated Date/Time: 07/03/2017 1:28 PM
== END | disposition home or self-care (01) ==
LOC: C.PET 09:39
PROVIDERS: ATTEND Internal Medicine Hematology & Oncology
DX: C79.51 Secondary malignant neoplasm of bone (principal); R93.7 Abnormal findings on diagnostic imaging of other parts of musculoskeletal system; K63.89 Other specified diseases of intestine; I88.0 Nonspecific mesenteric lymphadenitis; K80.20 Calculus of gallbladder without cholecystitis without obstruction

== ENCOUNTER 2017-07-17 18:40 | Inpatient (IN) | payer BC, OTHER ==
[~2017-07-17] VITALS: Ht 175.3 cm; Wt 78.8 kg
[~2017-07-17 18:40] MED LIST changes: +BICA50TA13 PO; -BICA50TA6 PO
[2017-07-17] MEDS ORDERED: SODIUM CHLORIDE 0.9% 1000ML 1,000 ML IV STA (18:49)
--- NOTE | 2017-07-17 19:18 | DIAGNOSTIC IMAGING REPORT ---
SINGLE VIEW CHEST CLINICAL HISTORY: Generalized weakness. FINDINGS: An AP, portable, upright chest radiograph is compared to study dated 03/01/2017 and correlated with chest CT dated 06/03/2017. The examination is degraded by portable technique and apical lordotic positioning. The heart is enlarged and there is atherosclerotic calcification of the thoracic aorta. The pulmonary vasculature is noncongested. Chronic interstitial thickening is similar to previous. Atelectasis is seen at the left lung base. No airspace consolidation, large pleural effusion, or pneumothorax is identified. The skeletal structures are osteopenic. There are healed right-sided rib fractures. IMPRESSION: Cardiomegaly with no acute cardiopulmonary abnormality. Electronically signed by: Bashir Milner M.D. 07/17/2017 7:16 PM Dictated Date/Time: 07/17/2017 7:15 PM
[2017-07-17 19:26] LABS: BASO % 0.7 %; BASO ABS # 0.04 K/uL (0-0.2); EOS % 2.6 %; EOS ABS # 0.16 K/uL (0-0.5); HEMATOCRIT 38.3 % (42-52); HEMOGLOBIN 12.9 g/dL (14.0-18.0); IG# 0.03 K/uL (0.00-0.02); LYMPH % 21.9 %; LYMPH ABS # 1.34 K/uL (1.2-3.4); MEAN CELL VOLUME 92.5 fL (80-100); MEAN CORPUSCULAR HEMOGLOBIN 31.2 pg (25-34); MEAN CORPUSCULAR HGB CONC 33.7 g/dl (32-36); MEAN PLATELET VOLUME 10.9 fL (7.4-10.4); MONO % 10.1 %; MONO ABS # 0.62 K/uL (0.11-0.59); NEUT % 64.2 %; NEUT ABS # 3.92 K/uL (1.4-6.5); PLATELET COUNT 169 K/uL (130-400); RED CELL DISTRIBUTION WIDTH CV 13.8 % (11.5-14.5); WHITE BLOOD COUNT 6.11 K/uL (4.8-10.8)
[2017-07-17] MEDS ORDERED: WARF-246 PO (19:27)
[2017-07-17] MEDS ORDERED: CALC-439 PO (19:27)
[2017-07-17] MEDS ORDERED: OMEG5CAP PO (19:27)
[2017-07-17 19:54] LABS: ALBUMIN 3.1 gm/dl (3.4-5.0); ALT/SGPT 21 U/L (12-78); BLOOD UREA NITROGEN 17 mg/dl (7-18); CALCIUM 8.6 mg/dl (8.5-10.1); CARBON DIOXIDE 26 mmol/L (21-32); CREATININE 1.17 mg/dl (0.60-1.40); GLUCOSE 150 mg/dl (70-99); POTASSIUM 3.8 mmol/L (3.5-5.1); SODIUM 139 mmol/L (136-145)
[2017-07-17 20:05] LABS: ALKALINE PHOSPHATASE 175 U/L (45-117); AST/SGOT 35 U/L (15-37); CKMB 2.3 ng/ml (0.5-3.6); TOTAL PROTEIN 6.6 gm/dl (6.4-8.2)
[2017-07-17 20:11] LABS: INR 2.4 (0.9-1.1); PTT PATIENT 41.3 SECONDS (21.0-31.0)
[2017-07-17] MEDS ORDERED: ASPIRIN 81 MG CHEW PO STA (20:58)
[2017-07-17] MEDS ORDERED: NITROGLYCERIN OINT 2% 1GM PACKET EXT ONE (21:00)
[2017-07-17] MEDS ORDERED: METOPROLOL TARTRATE 25 MG TAB PO STA (22:09)
[2017-07-17] MEDS ORDERED: GLUCOSE 40% GEL 15 GM TUBE PO PRN (22:15)
[2017-07-17] MEDS ORDERED: DEXTROSE 50% 50 ML SYR IV PRN (22:15)
[2017-07-17] MEDS ORDERED: GLUCAGON FOR INJ 1 MG VIAL SQ PRN (22:15)
[2017-07-17] MEDS ORDERED: ONDANSETRON 8MG OD TAB PO PRN (22:15)
[2017-07-17] MEDS ORDERED: GLUCOSE 10 TABS/TUBE PO PRN (22:15)
[2017-07-17] MEDS ORDERED: ACETAMINOPHEN 325 MG TAB PO PRN (22:15)
[2017-07-17] MEDS ORDERED: NITROGLYCERIN 0.4 MG SL PER TAB CHARGE SL PRN (22:15)
[2017-07-17] MEDS ORDERED: METOPROLOL TARTRATE 50 MG TAB ONE (22:18)
[2017-07-17] MEDS ORDERED: NSS + 20MEQ KCL 1000ML 1,000 ML IV SCH (23:00)
--- NOTE | 2017-07-17 23:05 | History and Physical ---
History & Physical Date & Time of Service: Jul 17, 2017 at 23:04 Chief Complaint: A-Fib, Substernal Discomfort Primary Care Physician: Zechariah Johnson M.D. History of Present Illness Source: patient, family, hospital records The patient is an 89-year-old male presents to the emergency department with epigastric area chest discomfort that began early this morning upon awakening. He has noted some increased gassiness as well. Nothing makes the discomfort better or worse. He is on warfarin for atrial fibrillation, and has a history of CHF, but does not report any weight gain. He reports a recent urinary bladder procedure due to enlarged prostate, and reports difficulty with urination. Past Medical/Surgical History Medical Problems: (1) Atrial fibrillation Status: Chronic (2) CHF (congestive heart failure) Status: Chronic (3) DVT (deep venous thrombosis) Status: Chronic (4) H/O blood clots Status: Chronic (5) Heart disease Status: Chronic (6) Lyme disease Status: Chronic (7) Mantle cell lymphoma Status: Chronic (8) Non-Hodgkin lymphoma Status: Chronic (9) Prostate cancer Status: Chronic (10) Shingles Status: Resolved Surgical Problems: (1) H/O prostatectomy Status: Resolved (2) S/P appendectomy Status: Resolved Family History Diabetes mellitus FH: cancer FH: heart disease FH: lung disease Hypertension Social History Smoking Status: Never Smoker Smokeless Tobacco Use: No Alcohol Use: none Drug Use: none Marital Status: Housing status: lives with family Occupational Status: unemployed Immunizations History of Influenza Vaccine: Unknown History of Tetanus Vaccine?: utd History of Pneumococcal: Unknown History of Hepatitis B Vaccine: No Multi-Drug Resistant Organisms History of MDRO: No Allergies Coded Allergies: Acetazolamide (Verified Allergy, Unknown, Diamox Eye Drops ? rxn, 07/17/17 ) Home Medications Scheduled Bicalutamide (Casodex), 50 MG PO QAM Calcium Carbonate-Vitamin D (Oyster Shell Calcium/D3 500-400 mg-Unit), 2 TABS PO DAILY Gabapentin (Neurontin), 300 MG PO BID Leuprolide Acetate (Lupron Depot), 30 MG IM Q4MO Multivitamin (Multivitamin), 1 TAB PO QAM [place]-3 Fatty Acids (Fish Oil 1200 mg), 1,200 MG PO DAILY Warfarin Sodium (Coumadin), 1 TAB PO 6XWK Warfarin Sodium (Warfarin Sodium), 7.5 MG PO WK Scheduled PRN Furosemide (Furosemide), 20-40 MG PO DAILY PRN for "DEPENDS ON WT GAIN". Review of Systems The patient denies palpitations, cough, lower extremity swelling, vision change , hearing change, sore throat, fevers, chills, sweats, weight change, nausea, vomiting, diarrhea or constipation, abdominal pain, pelvic pain, blood in stool, lightheadedness, dizziness, headache, memory loss, loss of consciousness, rash, abnormal bruising or bleeding, imbalance, focal weakness, numbness or tingling in arms or legs, generalized arthralgias or myalgias, back or neck pain, or night sweats. The review of systems is otherwise negative other than for that already noted above, and at least 10 systems have been reviewed. Physical Exam Vital Signs Date Time Temp Pulse Resp B/P (MAP) Pulse Ox O2 Delivery O2 Flow Rate FiO2 07/17/17 22:40 88 18 148/101 98 07/17/17 21:27 86 18 170/108 98 Room Air 07/17/17 20:00 86 18 151/86 95 Room Air 07/17/17 19:42 95 Room Air 07/17/17 19:42 95 Room Air 07/17/17 19:12 93 07/17/17 18:42 36.7 112 18 117/71 98 Room Air The patient is awake, well-developed and adequately nourished, alert and oriented 3, normocephalic and atraumatic, lying in bed and in no acute distress. HEENT--PERRL, EOMI, mucous membranes and oropharynx dry. Neck--supple, no JVD or bruits, thyroid normal, trachea midline, no adenopathy. Heart--normal S1 and S2, no extra beats, no murmurs, rubs or gallops. Lungs--clear bilaterally, no respiratory distress, no accessory muscle use. Abdomen--normal bowel sounds and soft, nontender and nondistended, no hernias or masses, no organomegaly. Extremities--no cyanosis, clubbing or edema. There are good distal pulses b/l. Dermatologic--normal skin turgor, normal color, warm and dry, no abnormal lymph nodes, no rash. Neurologic--cranial nerves II through XII grossly intact. Rheumatologic--normal range of motion. Psychiatric--normal affect. Diagnostics Laboratory Results Results Past 24 Hours Test 07/17/17 19:14 Range/Units White Blood Count 6.11 4.8-10.8 K/uL Red Blood Count 4.14 4.7-6.1 M/uL Hemoglobin 12.9 14.0-18.0 g/dL Hematocrit 38.3 42-52 % Mean Corpuscular Volume 92.5 80-100 fL Mean Corpuscular Hemoglobin 31.2 25-34 pg Mean Corpuscular Hemoglobin Concent 33.7 32-36 g/dl Platelet Count 169 130-400 K/uL Mean Platelet Volume 10.9 7.4-10.4 fL Neutrophils (%) (Auto) 64.2 % Lymphocytes (%) (Auto) 21.9 % Monocytes (%) (Auto) 10.1 % Eosinophils (%) (Auto) 2.6 % Basophils (%) (Auto) 0.7 % Neutrophils # (Auto) 3.92 1.4-6.5 K/uL Lymphocytes # (Auto) 1.34 1.2-3.4 K/uL Monocytes # (Auto) 0.62 0.11-0.59 K/uL Eosinophils # (Auto) 0.16 0-0.5 K/uL Basophils # (Auto) 0.04 0-0.2 K/uL RDW Standard Deviation 47.0 36.4-46.3 fL RDW Coefficient of Variation 13.8 11.5-14.5 % Immature Granulocyte % (Auto) 0.5 % Immature Granulocyte # (Auto) 0.03 0.00-0.02 K/uL Prothrombin Time 25.2 9.0-12.0 SECONDS Prothromb Time International Ratio 2.4 0.9-1.1 Activated Partial Thromboplast Time 41.3 21.0-31.0 SECONDS Partial Thromboplastin Ratio 1.6 Sodium Level 139 136-145 mmol/L Potassium Level 3.8 3.5-5.1 mmol/L Chloride Level 103 98-107 mmol/L Carbon Dioxide Level 26 21-32 mmol/L Anion Gap 10.0 3-11 mmol/L Blood Urea Nitrogen 17 7-18 mg/dl Creatinine 1.17 0.60-1.40 mg/dl Est Creatinine Clear Calc Drug Dose 42.8 ml/min Estimated GFR () 63.7 Estimated GFR (Non- 54.9 BUN/Creatinine Ratio 14.9 10-20 Random Glucose 150 70-99 mg/dl Calcium Level 8.6 8.5-10.1 mg/dl Magnesium Level 2.0 1.8-2.4 mg/dl Total Bilirubin 0.6 0.2-1 mg/dl Direct Bilirubin 0.2 0-0.2 mg/dl Aspartate Amino Transf (AST/SGOT) 35 15-37 U/L Alanine Aminotransferase (ALT/SGPT) 21 12-78 U/L Alkaline Phosphatase 175 45-117 U/L Total Creatine Kinase 87 39-308 U/L Creatine Kinase MB 2.3 0.5-3.6 ng/ml Creatine Kinase MB Ratio 2.6 0-3.0 Troponin I < 0.015 0-0.045 ng/ml Total Protein 6.6 6.4-8.2 gm/dl Albumin 3.1 3.4-5.0 gm/dl Thyroid Stimulating Hormone (TSH) 1.350 0.300-4.500 uIu/ml Diagnostic Radiology Patient Name: JEFFREY BAEZ Unit Number: [id number] Dictated: 07/17/171914 Transcribed: 07/17/171914 EV Printed Date/Time: [~ rep prt dt]/[~ rep prt tm] [~ rep ct labl] - [~ rep ct ivnm] [facility] [place] [address] Dictated: 07/17/171914 Transcribed: 07/17/171914 EV Printed Date/Time: [~ rep prt dt]/[~ rep prt tm] [~ rep ct labl] - [~ rep ct ivnm] SINGLE VIEW CHEST CLINICAL HISTORY: Generalized weakness. FINDINGS: An AP, portable, upright chest radiograph is compared to study dated 03/01/2017 and correlated with chest CT dated 06/03/2017. The examination is degraded by portable technique and apical lordotic positioning. The heart is enlarged and there is atherosclerotic calcification of the thoracic aorta. The pulmonary vasculature is noncongested. Chronic interstitial thickening is similar to previous. Atelectasis is seen at the left lung base. No airspace consolidation, large pleural effusion, or pneumothorax is identified. The skeletal structures are osteopenic. There are healed right-sided rib fractures. IMPRESSION: Cardiomegaly with no acute cardiopulmonary abnormality. Electronically signed by: Bashir Milner M.D. 07/17/2017 7:16 PM Dictated Date/Time: 07/17/2017 7:15 PM The status of this report is Signed. Draft = Not yet reviewed or approved by Radiologist. Signed = Reviewed and approved by Radiologist. <AttendingPhy></AttendingPhy> <FamilyPhy>Samir Lee M.D.</FamilyPhy> < PrimaryPhy>Zechariah Johnson M.D.</PrimaryPhy> <UnitNumber>[id number]</UnitNumber> < VisitNumber>[id number]</VisitNumber> <PatientName>JEFFREY BAEZ</PatientName > <DateOfBirth>1925</DateOfBirth> <Location>[facility]</Location> <ServiceDate> 07/17/17</ServiceDate> <MNE>ESINDI</MNE> <OrderingPhy>Zechariah Camarillo MD</ OrderingPhy> <OrderingPhyMNE>f rep ord dr edawrds</OrderingPhyMNE> <DictatingPhyMNE> f rep dict dr edwards</DictatingPhyMNE> <CCListMNE>f rep ct grace</CCListMNE> < AdmittingPhyMNE>f pt admit dr edwards</AdmittingPhyMNE> <AttendingPhyMNE>f pt attend dr edwards</AttendingPhyMNE> <ConsultingPhyMNE>f pt consult dr edwards</ConsultingPhyMNE> <FamilyPhyMNE>f pt fam dr edwards</FamilyPhyMNE> <OtherPhyMNE>f pt other dr edwards</OtherPhyMNE> < PrimaryPhyMNE>f pt prim care dr edwards</PrimaryPhyMNE> <ReferringPhyMNE>f pt referring dr edwards</ReferringPhyMNE> EKG EKG shows atrial fibrillation at 100 bpm, aberrantly conducted PVCs, lateral ischemia, no change compared to 03/01/2017. Impression Assessment and Plan Chronic atrial fibrillation/CAD/persistent lateral ischemia on EKG/epigastric and precordial chest discomfort-- The patient will be admitted to telemetry for serial cardiac enzymes, cardiac rhythm monitoring and a 2-D echocardiogram with Dopplers. Continue warfarin for now, presently therapeutic with INR 2.4. Started on aspirin 81 mg daily to be continued Nitropaste when his anterior chest wall every 6 hours Add metoprolol tartrate 25 mg twice a day, with first dose now History of DVT-- Continue warfarin and follow serial INRs Mantle cell lymphoma/non-Hodgkin's lymphoma/prostate cancer-- Continue Casodex 50 mg by mouth every morning Receives Lupron Depot 30 mg IM every 4 months Hold off on tamsulosin addition until nitroglycerin is determined. Level of Care Telemetry Advanced Directives Existing Advance Directive: No Existing Living Will: No Existing Power of Associate Vice President: No Resuscitation Status FULL RESUSCITATION VTE Prophylaxis VTE Risk Assessment Done? Y/N: Yes Risk Level: Moderate Given or contraindicated: Warfarin (Coumadin)
[2017-07-17 23:23] LABS: CHOLESTEROL 164 mg/dl (0-200); LDL CHOLESTEROL CALCULATED 108 mg/dl
--- NOTE | 2017-07-17 23:50 | NUR ---
A: Patient arrived to room N289-1 from emergency room via wheelchair. Ambulated with supervision assist with can to bathroom and then to bed. A&O x 4. VSS on room air. Afib on monitor. HR 82. Patient states he has chest substernal chest pressure rated 3/10 with no accompanying symptoms. Nitro ointment intact to left upper chest. Patient oriented to room and call gipson. Instructed to ring for assistance oob. IVF stated, infusing @ 50mL/hr into RT hand. Call gipson within reach. Will continue to monitor.
[2017-07-18] VITALS (8 sets, daily range): BP systolic 113–157; BP diastolic 67–84; PULSE 60–88; TEMP 36.6–36.8; O2SAT 94–98; Ht 175.3 cm; Wt 78.8 kg
--- NOTE | 2017-07-18 00:13 | EMERGENCY ROOM VISIT NOTE ---
History Report prepared by Khushboo: Vinny Carnes Under the Supervision of: Dr. Zechariah Camarillo M.D. First contact with patient: 18:46 Chief Complaint: CHEST PAIN Stated Complaint: CHEST PAIN History of Present Illness The patient is a 89 year old male who presents to the Emergency Room with complaints of constant chest pain that began this morning. He rates his discomfort as a 3/10 in severity. He reports that the pain is located in the center and intermittently in the lower portion of his chest. The patient describes his pain as a tightness and heaviness. The patient states that his chest pain began this morning after he woke up. He denies worsened symptoms with exertion, headache, syncope, cough, lightheadedness, flu symptoms, shortness of breath, dyspnea, nausea, vomiting, diaphoresis, leg swelling, weight changes, melena, hematochezia, and urinary symptoms. He states that he has a history of atrial fibrillation and CHF, which he takes Warfarin for. The patient reports a history of an appendectomy and a recent bladder resection that he had performed due to prostate blockage. Source of History: patient Onset: this morning Position: chest (middle, lower) Symptom Intensity: 3/10 Quality: other (tightness, heaviness) Timing: constant Associated Symptoms: No LOC, No headache, No diaphoresis, No cough, No SOB, No nausea, No vomiting, No melena, No hematochezia, No urinary symptoms Review of Systems See HPI for pertinent positives and negatives. A total of ten systems were reviewed and were otherwise negative. Past Medical & Surgical Medical Problems: (1) Atrial fibrillation (2) CHF (congestive heart failure) (3) DVT (deep venous thrombosis) (4) H/O blood clots (5) Heart disease (6) Lyme disease (7) Mantle cell lymphoma (8) Non-Hodgkin lymphoma (9) Prostate cancer (10) Shingles (11) Substernal discomfort Surgical Problems: (1) H/O prostatectomy (2) S/P appendectomy Family History Diabetes mellitus FH: cancer FH: heart disease FH: lung disease Hypertension Social History Smoking Status: Never Smoker Alcohol Use: occasionally Marital Status: Housing Status: lives alone Occupation Status: unemployed Current/Historical Medications Scheduled Bicalutamide (Casodex), 50 MG PO QAM Calcium Carbonate-Vitamin D (Oyster Shell Calcium/D3 500-400 mg-Unit), 2 TABS PO DAILY Gabapentin (Neurontin), 300 MG PO BID Leuprolide Acetate (Lupron Depot), 30 MG IM Q4MO Multivitamin (Multivitamin), 1 TAB PO QAM [place]-3 Fatty Acids (Fish Oil 1200 mg), 1,200 MG PO DAILY Warfarin Sodium (Coumadin), 1 TAB PO 6XWK Warfarin Sodium (Warfarin Sodium), 7.5 MG PO WK Scheduled PRN Furosemide (Furosemide), 20-40 MG PO DAILY PRN for "DEPENDS ON WT GAIN". Allergies Coded Allergies: Acetazolamide (Verified Allergy, Unknown, Diamox Eye Drops ? rxn, 07/17/17 ) Physical Exam Vital Signs Date Time Temp Pulse Resp B/P (MAP) Pulse Ox O2 Delivery O2 Flow Rate FiO2 07/17/17 21:27 86 18 170/108 98 Room Air 07/17/17 20:00 86 18 151/86 95 Room Air 07/17/17 19:42 95 Room Air 07/17/17 19:42 95 Room Air 07/17/17 19:12 93 07/17/17 18:42 36.7 112 18 117/71 98 Room Air Physical Exam GENERAL: Awake, alert, well-appearing, in no distress HENT: Normocephalic, atraumatic. Oropharynx unremarkable. EYES: Normal conjunctiva. Sclera non-icteric. NECK: Supple. No nuchal rigidity. FROM. No JVD. RESPIRATORY: Clear to auscultation. CARDIAC: borderline tachycardic, irregular rhythm. Extremities warm and well perfused. Pulses equal. ABDOMEN: Soft, non-distended. No tenderness to palpation. No rebound or guarding. No masses. RECTAL: Deferred. MUSCULOSKELETAL: Chest examination reveals no tenderness. The back is symmetrical on inspection without obvious abnormality. There is no CVA tenderness to palpation. No joint edema. LOWER EXTREMITIES: Calves are equal size bilaterally and non-tender. 1+ edema. No discoloration. NEURO: Normal sensorium. No sensory or motor deficits noted. SKIN: No rash or jaundice noted. Medical Decision & Procedures ER Provider Diagnostic Interpretation: X-ray: Per my interpretation, radiologist review. SINGLE VIEW CHEST CLINICAL HISTORY: Generalized weakness. FINDINGS: An AP, portable, upright chest radiograph is compared to study dated 03/01/2017 and correlated with chest CT dated 06/03/2017. The examination is degraded by portable technique and apical lordotic positioning. The heart is enlarged and there is atherosclerotic calcification of the thoracic aorta. The pulmonary vasculature is noncongested. Chronic interstitial thickening is similar to previous. Atelectasis is seen at the left lung base. No airspace consolidation, large pleural effusion, or pneumothorax is identified. The skeletal structures are osteopenic. There are healed right-sided rib fractures. IMPRESSION: Cardiomegaly with no acute cardiopulmonary abnormality. Electronically signed by: Bashir Milner M.D. 07/17/2017 7:16 PM Dictated Date/Time: 07/17/2017 7:15 PM Laboratory Results 07/17/17 19:14 Red Blood Count 4.14, Mean Corpuscular Volume 92.5, Mean Corpuscular Hemoglobin 31.2, Mean Corpuscular Hemoglobin Concent 33.7, Mean Platelet Volume 10.9, Neutrophils (%) (Auto) 64.2, Lymphocytes (%) (Auto) 21.9, Monocytes (%) (Auto) 10.1, Eosinophils (%) (Auto) 2.6, Basophils (%) (Auto) 0.7, Neutrophils # (Auto ) 3.92, Lymphocytes # (Auto) 1.34, Monocytes # (Auto) 0.62, Eosinophils # (Auto ) 0.16, Basophils # (Auto) 0.04 07/17/17 19:14 Test 07/17/17 19:14 White Blood Count 6.11 K/uL (4.8-10.8) Red Blood Count 4.14 M/uL (4.7-6.1) Hemoglobin 12.9 g/dL (14.0-18.0) Hematocrit 38.3 % (42-52) Mean Corpuscular Volume 92.5 fL (80-100) Mean Corpuscular Hemoglobin 31.2 pg (25-34) Mean Corpuscular Hemoglobin Concent 33.7 g/dl (32-36) Platelet Count 169 K/uL (130-400) Mean Platelet Volume 10.9 fL (7.4-10.4) Neutrophils (%) (Auto) 64.2 % Lymphocytes (%) (Auto) 21.9 % Monocytes (%) (Auto) 10.1 % Eosinophils (%) (Auto) 2.6 % Basophils (%) (Auto) 0.7 % Neutrophils # (Auto) 3.92 K/uL (1.4-6.5) Lymphocytes # (Auto) 1.34 K/uL (1.2-3.4) Monocytes # (Auto) 0.62 K/uL (0.11-0.59) Eosinophils # (Auto) 0.16 K/uL (0-0.5) Basophils # (Auto) 0.04 K/uL (0-0.2) RDW Standard Deviation 47.0 fL (36.4-46.3) RDW Coefficient of Variation 13.8 % (11.5-14.5) Immature Granulocyte % (Auto) 0.5 % Immature Granulocyte # (Auto) 0.03 K/uL (0.00-0.02) Prothrombin Time 25.2 SECONDS (9.0-12.0) Prothromb Time International Ratio 2.4 (0.9-1.1) Activated Partial Thromboplast Time 41.3 SECONDS (21.0-31.0) Partial Thromboplastin Ratio 1.6 Anion Gap 10.0 mmol/L (3-11) Est Creatinine Clear Calc Drug Dose 42.8 ml/min Estimated GFR () 63.7 Estimated GFR (Non- 54.9 BUN/Creatinine Ratio 14.9 (10-20) Calcium Level 8.6 mg/dl (8.5-10.1) Magnesium Level 2.0 mg/dl (1.8-2.4) Total Bilirubin 0.6 mg/dl (0.2-1) Direct Bilirubin 0.2 mg/dl (0-0.2) Aspartate Amino Transf (AST/SGOT) 35 U/L (15-37) Alanine Aminotransferase (ALT/SGPT) 21 U/L (12-78) Alkaline Phosphatase 175 U/L (45-117) Total Creatine Kinase 87 U/L (39-308) Creatine Kinase MB 2.3 ng/ml (0.5-3.6) Creatine Kinase MB Ratio 2.6 (0-3.0) Troponin I < 0.015 ng/ml (0-0.045) Total Protein 6.6 gm/dl (6.4-8.2) Albumin 3.1 gm/dl (3.4-5.0) Triglycerides Level 85 mg/dl (0-150) Cholesterol Level 164 mg/dl (0-200) HDL Cholesterol 39 mg/dl LDL Cholesterol, Calculated 108 mg/dl VLDL Cholesterol, Calculated 17 mg/dl Cholesterol/HDL Ratio 4.2 Thyroid Stimulating Hormone (TSH) 1.350 uIu/ml (0.300-4.500) Laboratory results reviewed by me Medications Administered Medications (Trade) Dose Ordered Sig/Cj Route Start Time Stop Time Status Last Admin Dose Admin Sodium Chloride 1,000 ml @ 125 mls/hr Q8H STAT IV 07/17/17 18:49 07/17/17 22:55 DC 07/17/17 18:49 125 MLS/HR Aspirin (Aspirin Chew) 324 mg NOW STAT PO 07/17/17 20:58 07/17/17 20:59 DC 07/17/17 21:26 324 MG Nitroglycerin (Nitroglycerin 2% Oint) 0.5 inch NOW ONCE EXT 07/17/17 21:00 07/17/17 21:01 DC 07/17/17 21:27 0.5 INCH ECG Indication: chest pain Rate (beats per minute): 100 Rhythm: atrial fibrillation Findings: PVC, other (Poor R Wave Progression anteriorly, lateral ST Depression ) Comparison ECG Date: 03/01/17 Change: PRWP is old, but lateral ST depression is more pronounced on new EKG. ED Course 1848: Ordered Sodium Chloride 1000 ml @ 125 mls/hr IV. 1852: The patient was evaluated in room A02. A complete history and physical exam was performed. 2057: Ordered Aspirin 324 mg PO. 2099: Ordered Nitroglycerin 0.5 inch EXT. 2100: I reevaluated the patient and he is resting comfortably. I updated him on his results and discussed his treatment plan. He agrees to the plan and will be further evaluated. 2112: I discussed the patients case with Dr. Bagley, [facility] Hospitalist. He understands the patients condition and agrees to accept the patient. The patient will be further evaluated. Medical Decision Triage Nursing notes reviewed. The patient's presentation and history were concerning for chest pain. Etiologies such as cardiac ischemia, aortic dissection, pulmonary embolism, pneumonia, pneumothorax, musculoskeletal, infections, gastrointestinal, as well as others were entertained. The patient was evaluated. His ECG was concerning for subtle changes. Blood work was obtained. Chest x-ray was unremarkable. His cardiac markers were negative. Remainder of his blood work is unremarkable. He was given a dose of aspirin and Nitropaste. Because of his symptoms and workup he will require further evaluation and management in the hospital. Consultation was made with internal medicine. The patient was evaluated in the Emergency Room for further management. Medication Reconcilliation Current Medication List: was personally reviewed by me Blood Pressure Screening Patient's blood pressure: Normal blood pressure Consults Time Called: 2112 Consulting Physician: Dr. Bagley [facility] Hospitalist Returned Call: 2112 I discussed the patients case with Dr. Bagley [facility] Hospitalist. He understands the patients condition and agrees to accept the patient. The patient will be further evaluated. Impression Primary Impression: Substernal precordial chest pain Scribe Attestation The scribe's documentation has been prepared under my direction and personally reviewed by me in its entirety. I confirm that the note above accurately reflects all work, treatment, procedures, and medical decision making performed by me. Departure Information Dispostion Being Evaluated By Hospitalist Referrals No Doctor, Assigned (PCP) Patient Instructions My [facility]
[2017-07-18] MEDS: NITROGLYCERIN 2% OINTMENT 30GM TUBE EXT SCH ×3 (00:16→11:38)
--- NOTE | 2017-07-18 04:00 | NUR ---
A: Patient resting in bed. A&O x4. VSS on room air. Afib on monitor. Patient states his chest pain has improved, he would state that its not even there anymore. Cardiac enzymes have been negative so far. IVF infusing at 50mL/hr into RT wrist. Will continue to monitor.
[2017-07-18 05:05] LABS: HEMOGLOBIN A1C 5.7 % (4.5-5.6)
[2017-07-18 06:53] LABS: BASO % 0.9 %; BASO ABS # 0.05 K/uL (0-0.2); EOS % 4.4 %; EOS ABS # 0.24 K/uL (0-0.5); HEMATOCRIT 38.2 % (42-52); HEMOGLOBIN 12.7 g/dL (14.0-18.0); IG# 0.04 K/uL (0.00-0.02); LYMPH % 26.1 %; LYMPH ABS # 1.42 K/uL (1.2-3.4); MEAN CORPUSCULAR HEMOGLOBIN 30.6 pg (25-34); MEAN CORPUSCULAR HGB CONC 33.2 g/dl (32-36); MEAN PLATELET VOLUME 10.9 fL (7.4-10.4); MONO % 11.2 %; MONO ABS # 0.61 K/uL (0.11-0.59); NEUT % 56.7 %; NEUT ABS # 3.08 K/uL (1.4-6.5); PLATELET COUNT 158 K/uL (130-400); RED CELL DISTRIBUTION WIDTH CV 13.8 % (11.5-14.5); RED CELL DISTRIBUTION WIDTH SD 46.2 fL (36.4-46.3); WHITE BLOOD COUNT 5.44 K/uL (4.8-10.8)
[2017-07-18 07:04] LABS: INR 2.4 (0.9-1.1); PTT PATIENT 40.9 SECONDS (21.0-31.0)
[2017-07-18 07:31] LABS: BLOOD UREA NITROGEN 16 mg/dl (7-18); CALCIUM 8.4 mg/dl (8.5-10.1); CARBON DIOXIDE 27 mmol/L (21-32); CREATININE 1.01 mg/dl (0.60-1.40); GLUCOSE 96 mg/dl (70-99); POTASSIUM 3.9 mmol/L (3.5-5.1); SODIUM 138 mmol/L (136-145)
[2017-07-18 07:36] LABS: CKMB 1.8 ng/ml (0.5-3.6)
--- NOTE | 2017-07-18 08:00 | NUR ---
A: PT IS A&OX4. VSS ON RA. DENIES CHEST PAIN AND SOB. PT IS OOB INDEPENDENTLY TO BATHROOM WITH CANE. TOLERATING DIET. A. FIB ON MONITOR. NSS + 20 KCL INFUSING PER ORDER. NO COMPLAINTS AT THIS TIME. PT IS RESTING IN BED. Q1H ROUNDING. CALL COYLE WITHIN REACH. WILL CONTINUE TO MONITOR.
[2017-07-18] MEDS ORDERED: GABAPENTIN 300 MG CAP PO SCH (09:00)
[2017-07-18] MEDS ORDERED: BICALUTAMIDE 50 MG TAB PO SCH (09:00)
[2017-07-18] MEDS ORDERED: ASPIRIN 81 MG ECTAB PO SCH (09:00)
[2017-07-18] MEDS ORDERED: METOPROLOL TARTRATE 25 MG TAB PO SCH (09:00)
[2017-07-18] MEDS ORDERED: MULTIVITAMIN TAB PO SCH (09:00)
[2017-07-18] MEDS: INSULIN ASPART 100 UNITS/ML 3 ML PEN SC SCH ×3 (09:08→16:30)
--- NOTE | 2017-07-18 12:00 | NUR ---
A: ASSESSMENT UNCHANGED. Q1H ROUNDING. CALL COYLE WITHIN REACH. WILL CONTINUE TO MONITOR.
--- NOTE | 2017-07-18 12:51 | ECHOCARDIOGRAM REPORT ---
*NOTICE TO RECEIVING [employer] This information is strictly Confidential and protected under [place] law. [place] law prohibits you from making any further disclosure of this information unless further disclosure is expressly permitted by the written consent of the person to whom it pertains or is authorized by law. A general authorization for the release of medical or other information is not sufficient for this purpose. Hospital accepts no responsibility if the information is made available to any other person, INCLUDING THE PATIENT. Interpretation Summary * Name: JEFFREY BAEZ Study Date: 07/18/2017 08:23 AM BP: 150/78 mmHg * Patient Location: [facility]\S\N289\S\1 HR: 84 * : 1925 (M/d/yyyy) Gender: Male Height: 69 in * Age: 89 yrs Ethnicity: [place] Weight: 177 lb * Ordering Physician: Jason Bagley * Referring Physician: Self, Referred * Performed By: Kristie Gant RCS * * Reason For Study: A-FIB * BSA: 2.0 m2 * -- Conclusions -- * 1. Normal LV size, mild concentric LVH. * 2. Mild global LV dysfunction. LVEF 40-45%. * 3. Grossly normal RV size and funciton. * 4. Mild to moderate aortic regurgitation. Aortic valve sclerosis. * 5. Mild mitral regurgitation. Mild pulmonic regurgitation. * 6. Trace TR. Mild pulmonary hypertension. Est PASP 40-45 mmHg. Est RA 8 mmHg. * 7. Compared with prior study on 03/01/2015: LV function is improved. Procedure Details * A complete two-dimensional transthoracic echocardiogram was performed (2D, M-mode, Doppler and color flow Doppler). Left Ventricle * The left ventricle is grossly normal size. * There is mild concentric left ventricular hypertrophy. * Ejection Fraction = 40-45%. * There is mild global hypokinesis of the left ventricle. Right Ventricle * The right ventricle is grossly normal size. * The right ventricular systolic function is normal as assessed by tricuspid annular plane systolic excursion (TAPSE) (normal >1.5 cm). [facility] * The left atrium is moderately dilated. * The right atrium is severely dilated. * No ASD detected; PFO is not assessed. Mitral Valve * The mitral valve is grossly normal. * The mitral valve leaflets appear thickened, but open well. * There is no mitral valve stenosis. * There is mild mitral regurgitation. Tricuspid Valve * The tricuspid valve is not well visualized, but is grossly normal. * There is trace tricuspid regurgitation. Aortic Valve * Aortic valve sclerosis mild, without significant aortic valvular stenosis. * The aortic valve is trileaflet. * Mild to moderate aortic regurgitation. Pulmonic Valve * The pulmonary valve is inadequately visualized, but the Doppler data is adequate for interpretation. * Pulmonic stenosis is absent. * Mild pulmonic valvular regurgitation. Great Vessels * The aortic root and proximal ascending aorta are normal sized. Pericardium/Pleural * There is no pericardial effusion. MMode 2D Measurements and Calculations IVSd 1.3 cm IVSs 1.4 cm LVIDd 5.9 cm LVIDs 5.1 cm LVPWd 1.2 cm LVPWs 1.1 cm IVS/LVPW 1.1 FS 13.7 % EDV(Teich) 176.1 ml ESV(Teich) 125.4 ml EF(Teich) 28.8 % EDV(cubed) 209.9 ml ESV(cubed) 134.9 ml EF(cubed) 35.7 % % IVS thick 11.2 % % LVPW thick -8.36 % LV mass(C)d 329.2 grams LV mass(C)dI 167.9 grams/m\S\2 LV mass(C)s 266.3 grams LV mass(C)sI 135.8 grams/m\S\2 SV(Teich) 50.7 ml SI(Teich) 25.8 ml/m\S\2 SV(cubed) 75.0 ml SI(cubed) 38.2 ml/m\S\2 Ao root diam 3.3 cm Ao root area 8.6 cm\S\2 ACS 1.6 cm LA dimension 5.1 cm LA/Ao 1.6 LVOT diam 2.0 cm LVOT area 3.1 cm\S\2 LVAd ap4 32.9 cm\S\2 LVLd ap4 7.3 cm EDV(MOD-sp4) 124.0 ml EDV(sp4-el) 126.9 ml LVAs ap4 22.8 cm\S\2 LVLs ap4 6.9 cm ESV(MOD-sp4) 64.0 ml ESV(sp4-el) 63.8 ml EF(MOD-sp4) 48.4 % EF(sp4-el) 49.7 % LVAd ap2 33.6 cm\S\2 LVLd ap2 7.5 cm EDV(MOD-sp2) 120.6 ml EDV(sp2-el) 127.5 ml LVAs ap2 23.3 cm\S\2 LVLs ap2 6.8 cm ESV(MOD-sp2) 65.4 ml ESV(sp2-el) 67.3 ml EF(MOD-sp2) 45.7 % EF(sp2-el) 47.2 % LVLd %diff 3.4 % EDV(MOD-bp) 125.6 ml LVLs %diff -1.06 % ESV(MOD-bp) 65.0 ml EF(MOD-bp) 48.3 % SV(MOD-sp4) 60.0 ml SI(MOD-sp4) 30.6 ml/m\S\2 SV(MOD-sp2) 55.1 ml SI(MOD-sp2) 28.1 ml/m\S\2 SV(MOD-bp) 60.6 ml SI(MOD-bp) 30.9 ml/m\S\2 SV(sp4-el) 63.1 ml SI(sp4-el) 32.2 ml/m\S\2 SV(sp2-el) 60.2 ml SI(sp2-el) 30.7 ml/m\S\2 Doppler Measurements and Calculations MV E max gary 84.1 cm/sec MV P1/2t max gary 94.0 cm/sec MV P1/2t 68.4 msec MVA(P1/2t) 3.2 cm\S\2 MV dec slope 402.5 cm/sec\S\2 MV dec time 0.17 sec Ao V2 max 166.9 cm/sec Ao max PG 11.1 mmHg Ao max PG (full) 9.3 mmHg BERTIN(V,A) 1.3 cm\S\2 BERTIN(V,D) 1.3 cm\S\2 AI max gary 464.0 cm/sec AI max PG 86.1 mmHg AI dec slope 217.3 cm/sec\S\2 AI P1/2t 625.3 msec LV V1 max PG 1.8 mmHg LV V1 max 67.4 cm/sec MR max gary 415.1 cm/sec MR max PG 69.4 mmHg PA V2 max 77.7 cm/sec PA max PG 2.4 mmHg PI max gary 220.1 cm/sec PI max PG 19.4 mmHg PI dec slope 441.2 cm/sec\S\2 PI P1/2t 146.1 msec TR max gary 285.7 cm/sec
--- NOTE | 2017-07-18 13:05 | NUR ---
Discharge planning consult received. I spoke with the patient at bedside, he is alert and oriented x 4. He states that he resides in independent living at the [facility]. He currently uses a walker and cane as needed. He is able to provide his own lunch and breakfast and has dinner in the dining room. His plan is to return to his home at discharge. Patient would benefit from pt/ot evals, case management will follow. Addendum: 07/18/17 at 1555 by Alexa Barajas SERV I spoke again with patient and his daughter regarding discharge options. They are requesting a referral be made to the [facility], referral made. Patient understands that this will have to be approved through insurance and will need to participate in pt/ot. Addendum: 07/18/17 at 1621 by Alexajuli Barajas SERV Per Dr Blevins, patient is stable for discharge. She feels he can return home to independent living. I called and left a message for Kristie at the [facility] with update.
[2017-07-18 14:29] LABS: CKMB 1.7 ng/ml (0.5-3.6)
[2017-07-18] MEDS ORDERED: WARFARIN SOD 5 MG TAB PO SCH (16:00)
--- NOTE | 2017-07-18 16:00 | NUR ---
A: ASSESSMENT UNCHANGED. Q1H ROUNDING. CALL COYLE WITHIN REACH. WILL CONTINUE TO MONITOR.
[2017-07-18] MEDS ORDERED: RANITIDINE HCL 150 MG TAB PO ONE (16:15)
[2017-07-18] MEDS ORDERED: ASPI-320 PO (16:20)
[2017-07-18] MEDS ORDERED: LPR25 PO (16:20)
--- NOTE | 2017-07-18 16:23 | Discharge Instructions ---
Discharge Instructions Date of Service Jul 18, 2017. Admission Reason for Admission: A-Fib, Substernal Discomfort Discharge Discharge Diagnosis / Problem: Chest pain-noncardiac, Rapid atrial fibrillation Discharge Goals Goal(s): Improve disease control, Diagnostic testing, Therapeutic intervention Activity Recommendations Activity Limitations: resume your previous activity Shower/Bathe: no limitations . Instructions / Follow-Up Instructions / Follow-Up You were admitted with chest and upper abdominal pain. You were found to not have a heart attack based on blood tests, and ultrasound of the heart, and your ECGs. Your heart function is actually improved somewhat since your previous Echocardiogram. You were started on a low dose of metoprolol twice a day to help bring down your fast heart rate. Cardiology saw you here and did not think any further testing was necessary. This is most likely some upset stomach or perhaps mild inflammation of the stomach. You were given Maalox and had some relief. You can take Zantac 150mg twice daily for 1-2 weeks. Please follow up with your PCP within 1-2 weeks. Current Hospital Diet Patient's current hospital diet: AHA Diet (Heart Healthy) Discharge Diet Recommended Diet: AHA Diet (Heart Healthy) Procedures Procedures Performed: Chest xray Echocardiogram Pending Studies Studies pending at discharge: no Laboratory Results Hemoglobin A1c Test 07/17/17 19:14 Range/Units Estimated Average Glucose 117 mg/dl Hemoglobin A1c 5.7 H 4.5-5.6 % Lipid Panel Test 07/17/17 19:14 Range/Units Triglycerides Level 85 0-150 mg/dl Cholesterol Level 164 0-200 mg/dl HDL Cholesterol 39 mg/dl Cholesterol/HDL Ratio 4.2 LDL Cholesterol, Calculated 108 mg/dl Medical Emergencies . Who to Call and When: Medical Emergencies: If at any time you feel your situation is an emergency, please call 911 immediately. . Non-Emergent Contact Non-Emergency issues call your: Primary Care Provider, Instructional Facilitator Call Non-Emergent contact if: your pain is not controlled, your pain is worsening, your pain is unusual for you, your pain is concerning you, you have any medication questions . . "Provider Documentation" section prepared by Neena Blevins. . VTE Core Measure Inpt VTE Proph given/why not?: Warfarin (Coumadin)
[2017-07-18] MEDS ORDERED: ALUMINUM/MAGNESIUM SUSP 30 ML UDC PO STA (16:41)
[2017-07-18] MEDS ORDERED: ZNT150 PO (16:44)
--- NOTE | 2017-07-18 19:03 | Discharge Summary ---
Discharge Summary Date of Service Jul 18, 2017. Discharge Summary Admission Date: Jul 17, 2017 at 22:01 Discharge Date: Jul 18, 2017 Discharge Disposition: Home Principal Diagnosis: Chest pain-noncardiac, Rapid atrial fibrillation Problems/Secondary Diagnoses: Dyspepsia Chronic systolic CHF Mild-moderate AI Mild MR Mild Pulm HTN H/o DVT intermediate frame tender anticoagulation H/o metastatic prostate CA H/o Mantle cell lymphoma-in remission Immunizations: Have You Had Influenza Vaccine: Unknown History of Tetanus Vaccine?: utd History of Pneumococcal: Unknown History of Hepatitis B Vaccine: No Procedures: ECHO CXR Consultations: Cardiology Medication Reconciliation New Medications: Aspirin (Aspirin EC Low Dose) 81 Mg Ectab 81 MG PO QAM for 30 Days Metoprolol Tartrate (Lopressor) 25 Mg Tab 12.5 MG PO BID for 30 Days, #30 TAB Ranitidine HCl (Ranitidine HCl) 150 Mg Tab 150 MG PO BID, #30 TAB Continued Medications: Bicalutamide (Casodex) 50 Mg Tab 50 MG PO QAM, TAB Calcium Carbonate-Vitamin D (Oyster Shell Calcium/D3 500-400 mg-Unit) 1 Tab Tab 2 TABS PO DAILY Furosemide (Furosemide) 20 Mg Tab 20-40 MG PO DAILY PRN for "DEPENDS ON WT GAIN"., #30 Gabapentin (Neurontin) 300 Mg Cap 300 MG PO BID, CAP Leuprolide Acetate (Lupron Depot) 30 Mg Kit 30 MG IM Q4MO Multivitamin (Multivitamin) Tab 1 TAB PO QAM, TAB [place]-3 Fatty Acids (Fish Oil 1200 mg) 1 Cap Cap 1200 MG PO DAILY Warfarin Sodium (Coumadin) 5 Mg Tab 1 TAB PO 6XWK for 90 Days, TAB 1 Refill EVERY DAY EXCEPT MONDAYS. Warfarin Sodium (Warfarin Sodium) 5 Mg Tab 7.5 MG PO WK for 90 Days, TAB 3 Refills TAKES ON MONDAYS ONLY Discharge Exam Pt has not had any pain since he came to ER and received nitroglycerin and ASA. He describes substernal to epigastric pain that he noticed when he woke up the day of admission, nonradiating, felt gassy, no associated SOB or diaphoresis. Lasted for all day long until he came to the ER, but upon further questioning reports he has had some similar symptoms each night for the past week. Denies any changes in bowel habits, no N/V, no GI bleeding. Feeling well otherwise, not lightheaded, not weak. After I saw him, he started complaining again of epigastric discomfort. This was relieved within 1 hour after administration of Maalox and po Zantac. He ambulated the halls and had no symptoms at all after eating dinner. Review of Systems: Constitutional: No problem reported Eyes: No problem reported ENT: No problem reported Respiratory: No problem reported Cardiovascular: No problem reported Abdomen: No problem reported Musculoskeletal: No problem reported Genitourinary - Male: No problem reported Neurologic: No problem reported Psychiatric: No problem reported Endocrine: No problem reported Hematologic / Lymphatic: No problem reported Integumentary: No problem reported Physical Exam: General Appearance: WD/WN, no apparent distress Eyes: normal inspection, sclerae normal ENT: hearing grossly normal Neck: trachea midline Respiratory/Chest: lungs clear, normal breath sounds, no respiratory distress, no accessory muscle use Cardiovascular: no edema, no gallop, no murmur, normal peripheral pulses, + irregularly irregular Abdomen / GI: normal bowel sounds, non tender, soft, no organomegaly, no pulsatile mass Extremities: normal inspection, no calf tenderness, normal capillary refill , no pedal edema Neurologic/Psychiatric: alert, normal mood/affect, oriented x 3, + pertinent finding (gait mildly antalgic, uses a cane) Skin: normal color, warm/dry, no rash Hospital Course Pt is an 89 yo male with a h/o chronic systolic CHF, valvular disease, PAF on coumadin, h/o DVT, h/o mantle cell lymphoma in remission, metastatic prostate CA , admitted with atypical chest/epigastric pain that was relieved with NTG. He was also in A-fib with a rate of 100-112 on admission which improved with IVFs and metoprolol administration. He remained chest pain free throughout the stay, but did have some recurrent epigastri cpain that was relieved with Maalox and Zantac within 1 hour. Troponins neg x 3. ECHO actually showed improvement in his EF from previous. Cardiology saw the pt and recommended no further testing, no stress test needed at this time, conservative management. He will be discharged to home on a low dose of metoprolol 12.5mg po bid. He apparently was on this in the past (Toprol XL 25mg daily) and it was stopped but he can't remember why. He is tolerating it fine here and his BPs were actually as high as 170s systolic on admission. He should also take Zantac 150mg po bid for GERD or gastritis symptoms. If not improving, he should seek GI referral from PCP. As for his chronic systolic CHF, he had no evidence of decompensation here. It is noted he is not on an ACEI and this may be due to low normal BPs in the outpatient setting. Will start ASA 81mg daily, metoprolol tartrate 12.5mg po bid on discharge; defer to PCP or Cardiology as to whether he could tolerate an ACEI at some point in the future. He was ambulating the halls independently at the time of discharge and did not need custodial. Total Time Spent: Greater than 30 minutes This includes examination of the patient, discharge planning, medication reconciliation, and communication with other providers. Discharge Instructions Please refer to the electronic Patient Visit Report (Discharge Instructions) for additional information. Follow-Up PCP within 1-2 weeks Additional Copies To Samir Lee M.D.; Zechariah Johnson M.D.
[2017-07-18] MEDS ORDERED: RANITIDINE HCL 150 MG TAB PO SCH (21:00)
--- NOTE | 2017-07-18 21:20 | CARDIOLOGY CONSULTATION ---
DATE OF CONSULTATION: 07/18/2017 REASON FOR CONSULTATION: Chest pain. PRIMARY MANNEQUIN SANDER AND FINISHER: Dr. Lee. CONSULTATION REQUESTED BY: Dr. Blevins. HISTORY OF PRESENT ILLNESS: Mr. Alfredo is a very pleasant 89-year-old man with a history of paroxysmal atrial fibrillation, chronic systolic heart failure with an EF of previously 30-35%, mantle cell lymphoma, prostate cancer status post recent bladder outlet obstruction resection, hyperlipidemia and venous insufficiency who presented with chest pain beginning yesterday. The patient states he was in his usual state of health up until yesterday when while at rest, developed some diffuse chest pain, the pain was nonradiating, he described it more as a tightness/pressure, pain lasted for in total of approximately 12 hours and went away overnight while he was in the hospital. The patient denies significant similar pain in the past. He has otherwise been feeling well. Upon arrival to the ED, he was hemodynamically stable. He was in aFib with heart rates in the 90s-110s. His initial troponin was negative and troponins remain negative x3. His initial EKG showed atrial fib with occasional PVCs and subtle lateral T-wave changes but no kelsea signs of ischemia. He was admitted for observation overnight. He has had no significant event on telemetry. He has been largely chest pain free over the course of today. PAST MEDICAL HISTORY: Includes: 1. Cardiomyopathy, EF previously 30-35%. 2. Chronic systolic heart failure, managed with p.r.n. diuretics. 3. Mantle cell lymphoma, questionable thickening of his intestine on recent surveillance imaging, which will be evaluated further. 4. Prostate cancer status post recent bladder outlet obstruction and resection. 5. Resolved thrombocytopenia. 6. Frequent PVCs. 7. Hyperlipidemia. 8. Venous insufficiency. 9. Paroxysmal atrial fibrillation. PAST SURGICAL HISTORY: Status post appendectomy and prostatectomy and recent bladder outlet obstruction surgery. FAMILY HISTORY: No family history of premature coronary disease or sudden cardiac . SOCIAL HISTORY: He is . He is retired. 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 CURRENT MEDICATIONS: Include calcium, Casodex, Fish oil; furosemide 20 mg 1-2 tablets, based on weight of 177; gabapentin, Lupron, multivitamin and warfarin. ALLERGIES: No known drug allergies. REVIEW OF SYSTEMS: A 10-point review of systems was completed and otherwise negative unless stated in the HPI. LABORATORY DATA: White blood cell count 5.4, hemoglobin of 12.7, platelets of 158. His INR was 2.4. Sodium 138, potassium 3.9, BUN 16, creatinine of 1.0. Troponins have been negative x3. IMAGING DATA: Chest x-ray showed cardiomegaly with no acute cardiopulmonary process. Initial EKG showed atrial fibrillation with occasional PVCs. There was a subtle lateral T-wave changes consistent with some degree of LVH, no significant change on subsequent EKG. Echocardiogram from today showed improved LV function with an EF of 40-45%. There was normal RV size with mild to moderate AI and mild MR. IMPRESSION AND PLAN: 1. Chest pain. 2. Chronic systolic heart failure. 3. Cardiomyopathy. 4. Paroxysmal atrial fibrillation. Mr. Alfredo is an 89-year-old man here with chest pain for more than 12 hours with no evidence of cardiac ischemia by cardiac markers or EKG. I have reviewed his recent echo and LV function, is improved from prior. At this point, suspicion that current chest pain is due to an acute coronary syndrome is very low. We discussed possible stress test to further evaluate for high risk disease; however, in the setting of patient's comorbidities, feels unlikely that this testing will significantly change long-term outcome and the patient wishes to forego additional testing if possible. Otherwise, the patient remains in atrial fibrillation but is well rate controlled and asymptomatic. No significant congestion on exam and will continue on current home diuretic regimen. Blood pressure has been slightly elevated today, although has been previously low at outpatient visits. Can consider starting on low dose ROSETTE inhibitor, if blood pressure remains an issue. Otherwise, the patient seems stable from a cardiac standpoint and can be discharged home when other medical issues resolved. Can follow up with his primary direct mail clerk, Dr. Lee in next several weeks. Thank you for allowing us to participate in the care of this patient. RASHAAD
[2017-07-25] MEDS ORDERED: CRD200 PO (11:34)
[2017-07-29] MEDS ORDERED: RANI150T85 PO (20:12)
[2017-08-02] MEDS ORDERED: CRFUDL PO (13:28)
[2017-08-02] MEDS ORDERED: PANT1TAB4 PO (13:28)
== END 2017-07-18 19:20 | disposition home or self-care (01) | DRG 309 ==
LOC: C.EDB 18:42 → C.MED 22:01 → ENRESERV 22:32
PROVIDERS: ADMIT Hospitalist; ATTEND Family Medicine
DX: I48.0 Paroxysmal atrial fibrillation (principal); I50.22 Chronic systolic (congestive) heart failure; R07.2 Precordial pain; R10.13 Epigastric pain; I42.9 Cardiomyopathy, unspecified; I25.10 Atherosclerotic heart disease of native coronary artery without angina pectoris; R94.31 Abnormal electrocardiogram [ECG] [EKG]; I87.2 Venous insufficiency (chronic) (peripheral); Z85.46 Personal history of malignant neoplasm of prostate; Z90.79 Acquired absence of other genital organ(s); Z98.890 Other specified postprocedural states; Z85.72 Personal history of non-Hodgkin lymphomas; Z86.718 Personal history of other venous thrombosis and embolism; Z79.01 Long term (current) use of anticoagulants; Z79.899 Other long term (current) drug therapy; Z82.49 Family history of ischemic heart disease and other diseases of the circulatory system; Z83.3 Family history of diabetes mellitus; Z83.6 Family history of other diseases of the respiratory system

== ENCOUNTER 2017-07-23 13:33 | Observation (INO) | payer BC, OTHER ==
[~2017-07-23] VITALS: Ht 175.3 cm; Wt 76.3 kg
[~2017-07-23 13:33] MED LIST changes: +ASPEC81 PO; -BICA50TA13 PO; +BICA50TA6 PO; +CALC-439 PO; -CALC600T9 PO; +LPR25 PO; -OMEG10007 PO; +OMEG5CAP PO; +WARF-246 PO; -WARF7.5T PO; +ZNT150 PO
--- NOTE | 2017-07-23 14:51 | EMERGENCY ROOM VISIT NOTE ---
History Report prepared by Khushboo: Vinny Carnes Under the Supervision of: Dr. Farshad Ku M.D. First contact with patient: 14:22 Chief Complaint: CHEST PAIN Stated Complaint: CHEST PAIN, FEELING POORLY Nursing Triage Summary: chest pains started "again" patient was recently here with afib and chest pains. History of Present Illness The patient is a 89 year old male who presents to the Emergency Room with complaints of resolved chest pain that began around 0930. He rates his discomfort as a 5/10 in severity and describes the pain as a dull sensation. The patient reports that he went to exercise class today and states that he felt normal. He states that following exercise class, he started to experience pain in his sternum. The patient reports that he is currently experience mild dyspnea. The patient states that he was here recently for the same symptoms and he reports that he stayed for observation with Dr. Hartley, Cardiology. He denies radiation of pain, nausea, vomiting, and shortness of breath. The patient reports a history of atrial fibrillation and CHF. He states that he was put on Aspirin, Metoprolol, and Zantac. Source of History: patient Onset: 929 Position: chest Symptom Intensity: 5/10 Quality: dull Timing: resolved Associated Symptoms: No SOB, No nausea, No vomiting Review of Systems See HPI for pertinent positives & negatives. A total of 10 systems reviewed and were otherwise negative. Past Medical & Surgical Medical Problems: (1) Atrial fibrillation (2) CHF (congestive heart failure) (3) DVT (deep venous thrombosis) (4) H/O blood clots (5) Heart disease (6) Lyme disease (7) Mantle cell lymphoma (8) Non-Hodgkin lymphoma (9) Prostate cancer (10) Shingles (11) Substernal discomfort Surgical Problems: (1) H/O prostatectomy (2) S/P appendectomy Old medical records were reviewed. Nurse's notes were reviewed and I agree with. Family History Diabetes mellitus FH: cancer FH: heart disease FH: lung disease Hypertension Social History Smoking Status: Never Smoker Alcohol Use: occasionally Drug Use: none Marital Status: Housing Status: lives alone Occupation Status: unemployed Current/Historical Medications Scheduled Aspirin (Aspirin EC Low Dose), 81 MG PO QAM Bicalutamide (Casodex), 50 MG PO QAM Calcium Carbonate-Vitamin D (Oyster Shell Calcium/D3 500-400 mg-Unit), 2 TABS PO DAILY Gabapentin (Neurontin), 300 MG PO BID Leuprolide Acetate (Lupron Depot), 30 MG IM Q4MO Metoprolol Tartrate (Lopressor), 12.5 MG PO BID Multivitamin (Multivitamin), 1 TAB PO QAM [place]-3 Fatty Acids (Fish Oil 1200 mg), 1,200 MG PO DAILY Ranitidine HCl (Ranitidine HCl), 150 MG PO BID Warfarin Sodium (Coumadin), 1 TAB PO 6XWK Warfarin Sodium (Warfarin Sodium), 7.5 MG PO WK Scheduled PRN Furosemide (Furosemide), 20-40 MG PO DAILY PRN for "DEPENDS ON WT GAIN". Allergies Coded Allergies: Acetazolamide (Verified Allergy, Unknown, Diamox Eye Drops ? rxn, 07/23/17) Physical Exam Vital Signs Date Time Temp Pulse Resp B/P (MAP) Pulse Ox O2 Delivery O2 Flow Rate FiO2 07/23/17 19:31 90 22 143/79 95 Room Air 07/23/17 18:38 87 19 142/103 96 Room Air 07/23/17 18:28 91 07/23/17 17:59 111 18 95 07/23/17 17:55 88 18 97 Room Air 07/23/17 17:50 92 20 97 07/23/17 17:45 89 20 98 07/23/17 17:40 78 18 98 07/23/17 17:29 84 21 146/82 97 Room Air 07/23/17 16:30 86 18 116/95 97 Room Air 07/23/17 15:30 83 23 133/86 96 Room Air 07/23/17 15:00 83 19 129/64 96 Room Air 07/23/17 14:28 87 07/23/17 14:12 93 Room Air 07/23/17 14:12 82 16 121/68 97 Room Air 07/23/17 13:49 36.7 07/23/17 13:46 96 Room Air 07/23/17 13:36 86 20 126/75 97 Room Air Physical Exam General: Non-ill appearing older male in no acute distress. HEENT: Normal cephalic atraumatic. Pupils are equal round and reactive to light. Extraocular movements are intact. Oropharynx is pink with moist mucous membranes. No swelling of the mouth lips or tongue. Neck: Supple with a midline trachea. No meningeal signs or stiffness, no JVD or bruits. No Stridor. Chest: Clear to auscultation bilaterally. No wheezes or rhonchi. No increased work of breathing. Heart: Irregularly irregular with rate controlled a fib seen on the monitor Abdomen: Soft nontender, nondistended without rebound guarding or rigidity. Extremities: No cyanosis clubbing or edema. No calf tenderness or assymetry Spine/Back. Non tender to palpation. No CVA tenderness Skin: Good turgor without rashes. Neurologic exam: Cranial nerves two through 12 are intact. Motor and sensation are intact and symmetrical throughout. Medical Decision & Procedures ER Provider Diagnostic Interpretation: X-ray results as stated below per interpretation by me and the radiologist: CHEST ONE VIEW PORTABLE CLINICAL HISTORY: Chest pain. COMPARISON STUDY: PET/CT July 03, 2017 and chest radiograph July 17, 2017. FINDINGS: Lung volumes are normal. Mild left basilar opacity suggests atelectasis. Note is made of moderate cardiomegaly without evidence of pulmonary edema. There is no consolidation to suggest pneumonia. There are multiple old bilateral rib fractures. No pneumothorax or pleural effusion is present. IMPRESSION: No acute cardiopulmonary findings. Electronically signed by: Enoc Carpenter M.D. 07/23/2017 2:49 PM Dictated Date/Time: 07/23/2017 2:48 PM Laboratory Results 07/23/17 14:00 Red Blood Count 4.07, Mean Corpuscular Volume 91.6, Mean Corpuscular Hemoglobin 30.7, Mean Corpuscular Hemoglobin Concent 33.5, Mean Platelet Volume 10.5, Neutrophils (%) (Auto) 59.2, Lymphocytes (%) (Auto) 23.9, Monocytes (%) (Auto) 12.0, Eosinophils (%) (Auto) 2.0, Basophils (%) (Auto) 1.2, Neutrophils # (Auto ) 4.54, Lymphocytes # (Auto) 1.83, Monocytes # (Auto) 0.92, Eosinophils # (Auto ) 0.15, Basophils # (Auto) 0.09 07/23/17 14:00 Test 07/23/17 14:00 07/23/17 14:32 07/23/17 14:38 White Blood Count 7.66 K/uL (4.8-10.8) Red Blood Count 4.07 M/uL (4.7-6.1) Hemoglobin 12.5 g/dL (14.0-18.0) Hematocrit 37.3 % (42-52) Mean Corpuscular Volume 91.6 fL (80-100) Mean Corpuscular Hemoglobin 30.7 pg (25-34) Mean Corpuscular Hemoglobin Concent 33.5 g/dl (32-36) Platelet Count 182 K/uL (130-400) Mean Platelet Volume 10.5 fL (7.4-10.4) Neutrophils (%) (Auto) 59.2 % Lymphocytes (%) (Auto) 23.9 % Monocytes (%) (Auto) 12.0 % Eosinophils (%) (Auto) 2.0 % Basophils (%) (Auto) 1.2 % Neutrophils # (Auto) 4.54 K/uL (1.4-6.5) Lymphocytes # (Auto) 1.83 K/uL (1.2-3.4) Monocytes # (Auto) 0.92 K/uL (0.11-0.59) Eosinophils # (Auto) 0.15 K/uL (0-0.5) Basophils # (Auto) 0.09 K/uL (0-0.2) RDW Standard Deviation 47.4 fL (36.4-46.3) RDW Coefficient of Variation 14.1 % (11.5-14.5) Immature Granulocyte % (Auto) 1.7 % Immature Granulocyte # (Auto) 0.13 K/uL (0.00-0.02) Prothrombin Time 41.3 SECONDS (9.0-12.0) Prothromb Time International Ratio 4.0 (0.9-1.1) Activated Partial Thromboplast Time 42.9 SECONDS (21.0-31.0) Partial Thromboplastin Ratio 1.7 Anion Gap 9.0 mmol/L (3-11) Estimated GFR () 54.5 Estimated GFR (Non- 47.1 BUN/Creatinine Ratio 16.3 (10-20) Calcium Level 9.0 mg/dl (8.5-10.1) Total Bilirubin 0.5 mg/dl (0.2-1) Direct Bilirubin 0.1 mg/dl (0-0.2) Aspartate Amino Transf (AST/SGOT) 45 U/L (15-37) Alanine Aminotransferase (ALT/SGPT) 22 U/L (12-78) Alkaline Phosphatase 155 U/L (45-117) Total Creatine Kinase 96 U/L (39-308) Creatine Kinase MB 3.3 ng/ml (0.5-3.6) Pro-B-Type Natriuretic Peptide 3504 pg/ml (0-1800) Total Protein 6.0 gm/dl (6.4-8.2) Albumin 2.8 gm/dl (3.4-5.0) Lipase 107 U/L (73-393) Creatine Kinase MB Ratio (0-3.0) Bedside Troponin I 0.030 ng/ml (0-0.045) Laboratory studies as stated above per my review. ECG Indication: chest pain Rate (beats per minute): 86 Rhythm: atrial fibrillation Findings: no acute ischemic change, other (Lateral t wave abnormality) Comparison ECG Date: 07/18/17 Change: no significant change ED Course 1425: Past medical records reviewed. The patient was evaluated in room B05, and a complete history and physical examination were performed. 1640: I reevaluated the patient and he is resting comfortably. 1650: I discussed the patients case with Dr. Hartley, [facility] Cardiology. He agrees to further evaluation. 1805: I discussed the patients case with Dr. Jhony Sanchez, [facility] Hospitalist. He understands the patients condition and agrees to accept the patient. The patient will be further evaluated. Medical Decision Differentials include, but are not limited to; cardiac disease, a fib, CHF, and electrolyte or metabolic abnormality. This patient comes in as described above. He was recently admitted for similar pains had ruled out by enzymes but do not have any provocative testing. He is on Coumadin for blood thinning purposes. IV access was established. EKG was obtained as well as chest x-ray multiple blood testing. EKG shows no acute ST segment elevations some lateral depression which is about the same as 4 his cardiac biomarkers are not elevated his BNP is elevated however his lungs are clear on x-ray exam. I did discuss the case with Dr. Hartley to was his interior design teacher is in the hospital couple days ago and he did recommend keeping him for further treatment and evaluation. I have consulted the [facility] hospitalist to see him in the ER. Medication Reconcilliation Current Medication List: was personally reviewed by me Blood Pressure Screening Patient's blood pressure: Normal blood pressure Consults Time Called: 1646 Consulting Physician: Dr. Hartley, [facility] Cardiology Returned Call: [phone] I discussed the patients case with Dr. Hartley [facility] Cardiology. He agrees to further evaluation. Additional Consults: Time Called: 1756 Consulted Physician: Dr. Sukh Sanchez, [facility] Hospitalist Returned Call: [phone] Additional Comments: I discussed the patients case with Dr. Jhony Sanchez [facility] Hospitalist. He understands the patients condition and agrees to accept the patient. The patient will be further evaluated. Impression Primary Impression: Precordial chest pain Scribe Attestation The scribe's documentation has been prepared under my direction and personally reviewed by me in its entirety. I confirm that the note above accurately reflects all work, treatment, procedures, and medical decision making performed by me. Departure Information Dispostion Being Evaluated By Hospitalist Referrals Zechariah Johnson M.D. (PCP) Patient Instructions My [facility]
[2017-07-23 14:53] LABS: BASO % 1.2 %; BASO ABS # 0.09 K/uL (0-0.2); EOS ABS # 0.15 K/uL (0-0.5); HEMATOCRIT 37.3 % (42-52); HEMOGLOBIN 12.5 g/dL (14.0-18.0); IG# 0.13 K/uL (0.00-0.02); LYMPH % 23.9 %; LYMPH ABS # 1.83 K/uL (1.2-3.4); MEAN CELL VOLUME 91.6 fL (80-100); MEAN CORPUSCULAR HEMOGLOBIN 30.7 pg (25-34); MEAN CORPUSCULAR HGB CONC 33.5 g/dl (32-36); MEAN PLATELET VOLUME 10.5 fL (7.4-10.4); MONO ABS # 0.92 K/uL (0.11-0.59); NEUT % 59.2 %; NEUT ABS # 4.54 K/uL (1.4-6.5); PLATELET COUNT 182 K/uL (130-400); RED CELL DISTRIBUTION WIDTH CV 14.1 % (11.5-14.5); RED CELL DISTRIBUTION WIDTH SD 47.4 fL (36.4-46.3); WHITE BLOOD COUNT 7.66 K/uL (4.8-10.8)
[2017-07-23 14:56] LABS: POTASSIUM 3.5 mmol/L (3.5-5.1); SODIUM 137 mmol/L (136-145)
[2017-07-23 15:00] LABS: BLOOD UREA NITROGEN 22 mg/dl (7-18); CARBON DIOXIDE 26 mmol/L (21-32); CREATININE 1.33 mg/dl (0.60-1.40); GLUCOSE 105 mg/dl (70-99)
[2017-07-23 15:13] LABS: PTT PATIENT 42.9 SECONDS (21.0-31.0)
[2017-07-23 15:18] LABS: ALKALINE PHOSPHATASE 155 U/L (45-117); ALT/SGPT 22 U/L (12-78); AST/SGOT 45 U/L (15-37)
[2017-07-23 15:19] LABS: ALBUMIN 2.8 gm/dl (3.4-5.0); CKMB 3.3 ng/ml (0.5-3.6); LIPASE 107 U/L (73-393)
[2017-07-23] MEDS ORDERED: SODIUM CHLORIDE 0.9% 1000ML 1,000 ML IV SCH (23:06)
[2017-07-23] MEDS ORDERED: ONDANSETRON INJ 2 MG/ML 2 ML VIAL IV PRN (23:15)
[2017-07-23] MEDS ORDERED: MAGNESIUM HYDROXIDE SUSP 30 ML UDC PO PRN (23:15)
[2017-07-23] MEDS ORDERED: MoRPHine SULFATE 2 MG/ML CARP IV PRN (23:15)
[2017-07-23] MEDS ORDERED: ZOLPIDEM TARTRATE 5 MG TAB PO PRN ×2 (23:15)
[2017-07-23] MEDS ORDERED: POLYETHYLENE (MIRALAX) 17 GM PACK PO PRN (23:15)
[2017-07-23] MEDS ORDERED: NITROGLYCERIN 0.4 MG SL PER TAB CHARGE SL PRN (23:15)
[2017-07-23] MEDS ORDERED: ALUMINUM/MAGNESIUM/SIMETH (MAALOX MAX) 30 ML UDC PO PRN (23:15)
--- NOTE | 2017-07-23 23:16 | History and Physical ---
History & Physical Date & Time of Service: Jul 23, 2017 at 23:12 Chief Complaint: Chest Pain, Feeling Poorly Primary Care Physician: Zechariah Johnson M.D. History of Present Illness Source: patient 89 years old man with past medical history of chronic systolic congestive heart failure, atrial fibrillation, prostate cancer, dyslipidemia and Mantle cell lymphoma. Presented to the ED with substernal chest pain started after exertion today. Pain was moderate in intensity, localized in the substernal area. No associated symptoms No aggravating or relieving factors. Pain resolved spontaneously after arriving to ED. This is his second ED visit for chest pain. ED physician discussed the case with contemporary or modern dancer recommended admitting the patient to rule out ACS Past Medical/Surgical History Medical Problems: (1) Atrial fibrillation Status: Chronic (2) CHF (congestive heart failure) Status: Chronic (3) DVT (deep venous thrombosis) Status: Chronic (4) H/O blood clots Status: Chronic (5) Heart disease Status: Chronic (6) Lyme disease Status: Chronic (7) Mantle cell lymphoma Status: Chronic (8) Non-Hodgkin lymphoma Status: Chronic (9) Prostate cancer Status: Chronic (10) Shingles Status: Resolved Surgical Problems: (1) H/O prostatectomy Status: Resolved (2) S/P appendectomy Status: Resolved Family History Diabetes mellitus FH: cancer FH: heart disease FH: lung disease Hypertension Social History Smoking Status: Never Smoker Drug Use: none Marital Status: Housing status: lives with family Occupational Status: unemployed Immunizations History of Influenza Vaccine: Unknown History of Tetanus Vaccine?: utd History of Pneumococcal: Unknown History of Hepatitis B Vaccine: No Multi-Drug Resistant Organisms History of MDRO: No Allergies Coded Allergies: Acetazolamide (Verified Allergy, Unknown, Diamox Eye Drops ? rxn, 07/23/17) Home Medications Scheduled Aspirin (Aspirin EC Low Dose), 81 MG PO QAM Bicalutamide (Casodex), 50 MG PO QAM Calcium Carbonate-Vitamin D (Oyster Shell Calcium/D3 500-400 mg-Unit), 2 TABS PO DAILY Gabapentin (Neurontin), 300 MG PO BID Leuprolide Acetate (Lupron Depot), 30 MG IM Q4MO Metoprolol Tartrate (Lopressor), 12.5 MG PO BID Multivitamin (Multivitamin), 1 TAB PO QAM [place]-3 Fatty Acids (Fish Oil 1200 mg), 1,200 MG PO DAILY Ranitidine HCl (Ranitidine HCl), 150 MG PO BID Warfarin Sodium (Coumadin), 1 TAB PO [id number] Warfarin Sodium (Warfarin Sodium), 7.5 MG PO WK Scheduled PRN Furosemide (Furosemide), 20-40 MG PO DAILY PRN for "DEPENDS ON WT GAIN". Review of Systems Constitutional: No fever, No chills, No sweats, No weight loss, No weakness, No fatigue, No problem reported Eyes: No worsening of vision, No eye pain, No redness, No discharge, No diplopia, No problem reported ENT: No hearing loss, No unusual epistaxis, No nasal symptoms, No sore throat, No tinnitus, No dental problems, No trouble swallowing, No problem reported Respiratory: No cough, No sputum, No wheezing, No shortness of breath, No dyspnea on exertion, No dyspnea at rest, No hemoptysis, No problem reported Cardiovascular: + chest pain, No orthopnea, No PND, No edema, No claudication, No palpitations, No problem reported Abdomen: No pain, No nausea, No vomiting, No diarrhea, No constipation, No GI bleeding, No problem reported Musculoskeletal: No joint pain, No muscle pain, No swelling, No calf pain, No problem reported Genitourinary - Male: No hematuria, No dysuria, No urinary frequency, No urinary urgency, No urinary hesitancy, No urinary retention, No urinary incontinence, No penile discharge, No lesions, No impotence, No problem reported Neurologic: No memory loss, No paralysis, No weakness, No numbness/tingling, No vertigo, No balance problems, No problem reported Psychiatric: No depression symptoms, No anhedonism, No anxiety, No insomnia, No substance abuse, No problem reported Endocrine: No fatigue, No excessive thirst, No excessive urination, No problem reported Hematologic / Lymphatic: No abnormal bleeding/bruising, No clotting problems, No swollen lymph nodes, No night sweats, No problem reported Integumentary: No rash, No itch, No new/changing skin lesions, No color change , No bleeding, No problem reported Allergic / Immunologic: No environmental allergies, No seasonal allergies, No pet sensitivities, No food allergies, No hives, No frequent infections, No poor healing, No prolonged convalescence, No problem reported Physical Exam Vital Signs Date Time Temp Pulse Resp B/P (MAP) Pulse Ox O2 Delivery O2 Flow Rate FiO2 07/23/17 22:36 99 07/23/17 22:30 96 13 129/76 94 Room Air 07/23/17 21:59 103 22 137/77 95 Room Air 07/23/17 21:01 157/93 07/23/17 21:00 96 26 07/23/17 20:30 96 25 155/94 96 07/23/17 20:00 95 25 132/63 93 07/23/17 19:31 90 22 143/79 95 Room Air 07/23/17 18:38 87 19 142/103 96 Room Air 07/23/17 18:28 91 07/23/17 17:59 111 18 95 07/23/17 17:55 88 18 97 Room Air 07/23/17 17:50 92 20 97 07/23/17 17:45 89 20 98 07/23/17 17:40 78 18 98 07/23/17 17:29 84 21 146/82 97 Room Air 07/23/17 16:30 86 18 116/95 97 Room Air 07/23/17 15:30 83 23 133/86 96 Room Air 07/23/17 15:00 83 19 129/64 96 Room Air 07/23/17 14:28 87 07/23/17 14:12 93 Room Air 07/23/17 14:12 82 16 121/68 97 Room Air 07/23/17 13:49 36.7 07/23/17 13:46 96 Room Air 07/23/17 13:36 86 20 126/75 97 Room Air General Appearance: WD/WN, no apparent distress Head: normocephalic, atraumatic Eyes: normal inspection, EOMI ENT: normal ENT inspection, hearing grossly normal Neck: supple Respiratory/Chest: chest non-tender, lungs clear, normal breath sounds, no respiratory distress, no accessory muscle use Cardiovascular: regular rate, rhythm, no edema, no gallop, no JVD, no murmur, normal peripheral pulses Abdomen/GI: normal bowel sounds, non tender, soft, no organomegaly, no pulsatile mass Back: normal inspection Extremities/Musculoskelatal: normal inspection, no calf tenderness, normal capillary refill, no pedal edema, normal range of motion Neurologic/Psych: medical specialist II-XII nml as tested, no motor/sensory deficits, alert, normal mood/affect, normal reflexes, oriented x 3 Skin: normal color, warm/dry, no rash Diagnostics Laboratory Results Results Past 24 Hours Test 07/23/17 14:00 07/23/17 14:32 07/23/17 14:38 Range/Units White Blood Count 7.66 4.8-10.8 K/uL Red Blood Count 4.07 4.7-6.1 M/uL Hemoglobin 12.5 14.0-18.0 g/dL Hematocrit 37.3 42-52 % Mean Corpuscular Volume 91.6 80-100 fL Mean Corpuscular Hemoglobin 30.7 25-34 pg Mean Corpuscular Hemoglobin Concent 33.5 32-36 g/dl Platelet Count 182 130-400 K/uL Mean Platelet Volume 10.5 7.4-10.4 fL Neutrophils (%) (Auto) 59.2 % Lymphocytes (%) (Auto) 23.9 % Monocytes (%) (Auto) 12.0 % Eosinophils (%) (Auto) 2.0 % Basophils (%) (Auto) 1.2 % Neutrophils # (Auto) 4.54 1.4-6.5 K/uL Lymphocytes # (Auto) 1.83 1.2-3.4 K/uL Monocytes # (Auto) 0.92 0.11-0.59 K/uL Eosinophils # (Auto) 0.15 0-0.5 K/uL Basophils # (Auto) 0.09 0-0.2 K/uL RDW Standard Deviation 47.4 36.4-46.3 fL RDW Coefficient of Variation 14.1 11.5-14.5 % Immature Granulocyte % (Auto) 1.7 % Immature Granulocyte # (Auto) 0.13 0.00-0.02 K/uL Prothrombin Time 41.3 9.0-12.0 SECONDS Prothromb Time International Ratio 4.0 0.9-1.1 Activated Partial Thromboplast Time 42.9 21.0-31.0 SECONDS Partial Thromboplastin Ratio 1.7 Sodium Level 137 136-145 mmol/L Potassium Level 3.5 3.5-5.1 mmol/L Chloride Level 102 98-107 mmol/L Carbon Dioxide Level 26 21-32 mmol/L Anion Gap 9.0 3-11 mmol/L Blood Urea Nitrogen 22 7-18 mg/dl Creatinine 1.33 0.60-1.40 mg/dl Estimated GFR () 54.5 Estimated GFR (Non- 47.1 BUN/Creatinine Ratio 16.3 10-20 Random Glucose 105 70-99 mg/dl Calcium Level 9.0 8.5-10.1 mg/dl Total Bilirubin 0.5 0.2-1 mg/dl Direct Bilirubin 0.1 0-0.2 mg/dl Aspartate Amino Transf (AST/SGOT) 45 15-37 U/L Alanine Aminotransferase (ALT/SGPT) 22 12-78 U/L Alkaline Phosphatase 155 45-117 U/L Total Creatine Kinase 96 39-308 U/L Creatine Kinase MB 3.3 0.5-3.6 ng/ml Creatine Kinase MB Ratio 3.4 0-3.0 Pro-B-Type Natriuretic Peptide 3504 0-1800 pg/ml Total Protein 6.0 6.4-8.2 gm/dl Albumin 2.8 3.4-5.0 gm/dl Lipase 107 73-393 U/L Bedside Troponin I 0.030 0-0.045 ng/ml Impression Assessment and Plan Assessment Chest pain rule out ACS Coumadin coagulopathy chronic cardiomyopathy, EF previously 30-35%. Chronic systolic heart failure, not in exacerbation History of Mantle cell lymphoma, questionable thickening of his intestine Prostate cancer status post recent resection. Frequent PVCs. Hyperlipidemia. Venous insufficiency. Paroxysmal atrial fibrillation. On Coumadin plan: admit to telemetry obtain serial cardiac enz NTG SL/topical prn CP consult contemporary or modern dancer pain management Check hemoglobin A1c/lipids to stratify patient risk factors repeat EKG prn chest pain Hold Coumadin and check INR and a Resuscitation Status FULL RESUSCITATION VTE Prophylaxis VTE Risk Assessment Done? Y/N: Yes Risk Level: Moderate
[2017-07-24] VITALS (10 sets, daily range): BP systolic 130–176; BP diastolic 70–94; PULSE 75–113; TEMP 36.5–37; O2SAT 93–97; Ht 175.3 cm; Wt 76.3 kg
[2017-07-24] MEDS ORDERED: ATORVASTATIN 10 MG TAB PO ONE (01:26)
[2017-07-24] MEDS ORDERED: IV FLUIDS COMPLETED PRN (01:30)
[2017-07-24] MEDS ORDERED: GUAIFENESIN SUGAR FREE 100 MG/5 ML UDC PO STA (02:02)
[2017-07-24] MEDS: ACETAMINOPHEN 325 MG TAB PO PRN ×4 (04:01→22:22)
[2017-07-24 05:20] LABS: BASO % 0.9 %; BASO ABS # 0.07 K/uL (0-0.2); EOS % 2.1 %; EOS ABS # 0.17 K/uL (0-0.5); HEMATOCRIT 36.6 % (42-52); HEMOGLOBIN 12.1 g/dL (14.0-18.0); IG# 0.19 K/uL (0.00-0.02); LYMPH ABS # 1.71 K/uL (1.2-3.4); MEAN CELL VOLUME 90.6 fL (80-100); MEAN CORPUSCULAR HGB CONC 33.1 g/dl (32-36); MEAN PLATELET VOLUME 10.3 fL (7.4-10.4); MONO % 11.5 %; MONO ABS # 0.94 K/uL (0.11-0.59); NEUT % 62.2 %; NEUT ABS # 5.06 K/uL (1.4-6.5); NUCLEATED RED BLOOD CELL ABS 0.02 K/uL (0-0); PLATELET COUNT 155 K/uL (130-400); RED CELL DISTRIBUTION WIDTH CV 13.9 % (11.5-14.5); RED CELL DISTRIBUTION WIDTH SD 45.8 fL (36.4-46.3); WHITE BLOOD COUNT 8.14 K/uL (4.8-10.8)
[2017-07-24 05:40] LABS: ALBUMIN 2.6 gm/dl (3.4-5.0); CALCIUM 8.6 mg/dl (8.5-10.1); CREATININE 1.11 mg/dl (0.60-1.40); POTASSIUM 3.6 mmol/L (3.5-5.1)
[2017-07-24 05:45] LABS: TOTAL PROTEIN 5.7 gm/dl (6.4-8.2)
[2017-07-24 06:05] LABS: INR 3.7 (0.9-1.1)
[2017-07-24] MEDS ORDERED: MAGNESIUM SULFATE 1GM / D5W 1 GM in PREMIXED IN D5W 100 ML IV ONE (08:45)
[2017-07-24] MEDS: MULTIVITAMIN TAB PO SCH (08:51)
[2017-07-24] MEDS: RANITIDINE HCL 150 MG TAB PO SCH ×2 (08:52→21:00)
[2017-07-24] MEDS: ATORVASTATIN 10 MG TAB PO SCH (08:52)
[2017-07-24] MEDS: ASPIRIN 81 MG ECTAB PO SCH (08:52)
[2017-07-24] MEDS: METOPROLOL TARTRATE 25 MG TAB PO SCH ×2 (08:52→21:00)
[2017-07-24] MEDS: GABAPENTIN 300 MG CAP PO SCH ×2 (08:52→20:59)
[2017-07-24] MEDS: BICALUTAMIDE 50 MG TAB PO SCH (08:52)
[2017-07-24] MEDS ORDERED: FUROSEMIDE INJ 40 MG in SYRINGE 0 ML IV ONE (09:15)
[2017-07-24] MEDS: AMIODARONE 200 MG TAB PO SCH ×2 (09:20→20:59)
--- NOTE | 2017-07-24 10:18 | CARDIOLOGY CONSULTATION REPORT ---
DATE OF CONSULTATION: 07/24/2017 DATE OF CONSULTATION: 07/24/2017 REASON FOR CONSULTATION: 1. Burning chest pain with negative cardiac enzymes thus far. 2. Chronic systolic CHF. 3. Chronic cardiomyopathy. 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 It came on and lasted for several hours, and eventually resolved. He denied any associated nausea, vomiting, diaphoresis, or dyspnea. Symptoms began to come back which prompted his visit to the Emergency Room. In the ER he was noted to be in atrial fibrillation with an elevated ventricular response rate, and also had an elevated ProBNP. His troponin I level is negative thus far, and he is currently asymptomatic from a cardiac standpoint. The patient specifically denies any neck, jaw, back or arm pain. He denies any shortness of breath, unusual dyspnea on exertion, but his body weight is up above his "trigger weight". He denies any orthopnea or PND. He has not had any syncope or near syncope. On telemetry monitoring the patient does not appear to have good control of his ventricular response rate. His heart rates have been predominantly in the 110 to 120 range while at a state of rest. Interestingly, the patient was admitted with substernal chest discomfort and Afib on 07/17/2017. His cardiac enzymes remained negative at that time, and his EKG showed no acute changes although the patient was in atrial fibrillation. The patient offers no other complaints. The patient has been therapeutic on his INR over the past month, and is currently supratherapeutic. He has not had any signs or symptoms of stroke or mini-stroke. MEDICATIONS: Aspirin 81 mg daily, Casodex 50 mg daily, Neurontin 300 mg b.i.d., Lopressor 12.5 mg p.o. b.i.d., multivitamin daily, Zantac 150 mg b.i.d., Lipitor 10 mg daily, Tylenol p.r.n., Maalox p.r.n., milk of magnesia p.r.n., Ambien 5 mg at bedtime p.r.n. for sleep, Zofran 4 mg IV q. 6 hours p.r.n. for nausea, nitroglycerin p.r.n., morphine sulfate 2 mg IV q. 30 minutes p.r.n., MiraLax 17 grams daily as needed for constipation, normal saline solution at 35 mL per hour. ALLERGIES: Acetazolamide. PAST MEDICAL HISTORY: 1. Paroxysmal, now more Persistent Atrial fibrillation. 2. Telemetry would suggest that his V rate is not well controlled. 3. Prostate cancer on chronic Casodex therapy. 4. Chronic Cardiomyopathy with an LVEF of approximately 40% on recent echo. 5. Chronic Systolic CHF. 6. Chronic venous insufficiency. 7. Depression. 8. History of diverticulosis. 9. Dyslipidemia. 10. History of malignant melanoma of the skin. 11. Mantle cell lymphoma. 12. Heart murmur secondary to MR. 13. History of PVCs. 14. Thrombocytopenia. 15. History of PVCs. 16. History of appendectomy. 17. Status post colonoscopy. 18. History of radical perineal prostatectomy with lymph node biopsy. FAMILY HISTORY: Significant for colon cancer, diabetes mellitus, and heart disease. 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 He is , drinks alcohol socially, life-long nonsmoker. PHYSICAL EXAMINATION: VITAL SIGNS: Temperature 36.8?C orally, apical right is approximately 110-115 beats per minute and irregularly irregular, peripheral pulse rate is 106 beats per minute and irregularly irregular, respiration rate 16 and unlabored, blood pressure 159/94, SPO2 is 93% on room air. GENERAL: The patient appears in no acute distress. HEAD, EYES, EARS, NOSE, AND THROAT: Head is atraumatic, normocephalic. EOM intact. Sclera anicteric. Faces symmetric. No perioral cyanosis. Mucous membranes moist. NECK: JVD, jugular venous pressure is mildly elevated sitting upright. Carotid upstrokes +2 bilaterally without bruits. CHEST AND LUNGS: Are with mildly diminished breath sounds in bilateral bases, otherwise clear. No obvious wheezes, rales, or rhonchi. CARDIOVASCULAR SYSTEM: S1 and S2 are irregularly irregular and tachycardic. There is a grade 2/6 apical holosystolic murmur noted. No diastolic murmurs. No obvious gallops or rubs. PMI is nondisplaced. No lifts, heaves, or thrills. No abdominal, aortic or renal bruits. ABDOMINAL EXAMINATION: Bowel sounds present. EXTREMITIES: Are without clubbing or cyanosis. He has +1 pitting edema to the mid tibia bilaterally. Intact posterior tibial and radial pulses. NEUROLOGIC EXAMINATION: Patient is awake, alert and oriented, pleasant and cooperative. Answers questions appropriately. Speech is clear. Normal movement in all 4 extremities. Echocardiogram 07/18/2017 shows the followin. Normal LV size with mild concentric LVH. 2. Mild global LV systolic dysfunction. 3. LVEF 40%-45%. 4. Grossly normal RV size and systolic function. 5. Mild to moderate AI. 6. Mild mitral regurgitation. 7. Mild PI. 8. Aortic valve sclerosis without stenosis. 9. Trace TR. 10. Mild pulmonary hypertension with an estimated PASP of 45-45 mmHg. LABORATORY DATA: White blood cell count is 8.14, hemoglobin 12.1 g/dL, hematocrit 36.6%, and platelet count is 155,000. INR is supratherapeutic at 3.7. Sodium is 136 mmol/L, potassium 3.6 mmol/L, BUN 21 mg/dL, creatinine 1.11 mg/dL. Random glucose 106 mg/dL. Magnesium is slightly low at 1.7 mg/dL. Total CK is 74 with a CK-MB of 3.3. Troponin I levels are 0.025 and 0.030 ng/mL. ProBNP is elevated at 3,504 pg/mL. Chest x-ray on admission shows no acute cardiopulmonary findings. ASSESSMENT: 1. Burning chest discomfort with negative cardiac enzymes. 2. Persistent Atrial Fibrillation, telemetry would suggest that his ventricular response rate is not well controlled. 3. Mild Acute Exacerbation of Chronic Systolic CHF. 4. Cardiomyopathy. 5. Diagnoses as mentioned above. PLAN: 1. I will discuss with Dr. Lee. 2. He will be given a single injection of Lasix 40 mg IV now, and closely monitor daily I&Os, body weights. 3. The patient has been hospitalized twice in the past 2 weeks, both times he was in atrial fibrillation, suspect that his ventricular response rate is not well controlled and that may be contributing to his recurrent hospitalizations and symptoms. 4. Therefore recommend beginning Amiodarone 200 mg b.i.d. and decreasing to once daily in approximately 1 month. 5. Continue to monitor daily INR. 6. He did receive IV magnesium sulfate earlier today which should correct his hypomagnesemia. 7. If the patient does not convert with the use of Amiodarone -- could consider an electrical cardioversion down the road in 3-4 weeks. 8. We will continue to follow long while hospitalized. RASHAAD
--- NOTE | 2017-07-24 12:43 | Hospitalist Progress Note ---
Hospitalist Progress Note Date of Service Jul 24, 2017. (Tayla Suazo ., PA-C) Subjective Pt evaluation today including: conversation w/ patient, physical exam, lab review, review of studies, conversation w/ biometrics consultant (Cardiology- Isaias Meyers ) , review of inpatient medication list Voiding: no voiding problems Patient states he is feeling well this AM. Eating and drinking OK. No more episodes of chest pain. Cardiology believes symptoms due to ventricular rate- started Amiodarone Ambulating to bathroom w/ rolling walker w/out significant difficulty. +fatigue today- little sleep last evening. Patient denies any fever, chills, sweats, lightheadedness, dizziness, vision changes, CP, palpitations, edema, SOB, wheezing, cough, abdominal pain, nausea, vomiting, diarrhea, urinary symptoms, melena, numbness/tingling, weakness, muscle/joint pain, anxiety/depression, active bleeding, or new skin discoloration/changes. (Tayla Suazo ., PA-C) Medications Current Inpatient Medications Medications (Trade) Dose Ordered Sig/Cj Route Start Time Stop Time Status Last Admin Dose Admin Aspirin (Ecotrin Tab) 81 mg QAM PO 07/24/17 09:00 08/23/17 08:59 07/24/17 08:52 81 MG Bicalutamide (Casodex Tab) 50 mg QAM PO 07/24/17 09:00 08/23/17 08:59 07/24/17 08:52 50 MG Gabapentin (Neurontin Cap) 300 mg BID PO 07/24/17 09:00 08/23/17 08:59 07/24/17 08:52 300 MG Metoprolol Tartrate (Lopressor Tab) 12.5 mg BID PO 07/24/17 09:00 08/23/17 08:59 07/24/17 08:52 12.5 MG Multivitamins (Multivitamin Tab) 1 tab QAM PO 07/24/17 09:00 08/23/17 08:59 07/24/17 08:51 1 TAB Ranitidine HCl (zANTac TAB) 150 mg BID PO 07/24/17 09:00 08/23/17 08:59 07/24/17 08:52 150 MG Atorvastatin Calcium (Lipitor Tab) 10 mg QAM PO 07/24/17 09:00 08/23/17 08:59 1/3/18 08:52 10 MG Sodium Chloride 1,000 ml @ 35 mls/hr Q24H IV 07/23/17 23:06 08/22/17 23:05 07/24/17 02:05 35 MLS/HR Acetaminophen (Tylenol Tab) 650 mg Q4H PRN PO 07/23/17 23:15 08/22/17 23:14 07/24/17 08:51 650 MG Al Hydrox/Mg Hydrox/Simethicone (Maalox Max Susp) 15 ml Q4H PRN PO 07/23/17 23:15 08/22/17 23:14 Magnesium Hydroxide (Milk Of Magnesia Susp) 30 ml Q12H PRN PO 07/23/17 23:15 08/22/17 23:14 Zolpidem Tartrate (Ambien Tab) 5 mg HSZ PRN PO 07/23/17 23:15 08/22/17 23:14 Ondansetron HCl (Zofran Inj) 4 mg Q6H PRN IV 07/23/17 23:15 08/22/17 23:14 Nitroglycerin (Nitrostat Tab) 0.4 mg UD PRN SL 07/23/17 23:15 08/22/17 23:14 Morphine Sulfate (MoRPHine SULFATE INJ) 2 mg Q30M PRN IV 07/23/17 23:15 08/06/17 23:14 Polyethylene (Miralax Powder Packet) 17 gm DAILY PRN PO 07/23/17 23:15 08/22/17 23:14 Miscellaneous (Iv Fluids Completed) 1 ea PRN PRN N/A 07/24/17 01:30 07/24/18 01:29 Amiodarone HCl (Cordarone Tab) 200 mg BID PO 07/24/17 09:00 08/23/17 08:59 07/24/17 09:20 200 MG (Tayla Suazo PA-C) Objective Vital Signs Date Time Temp Pulse Resp B/P (MAP) Pulse Ox O2 Delivery O2 Flow Rate FiO2 07/24/17 11:30 36.8 78 18 146/71 (96) 95 Room Air 07/24/17 07:46 37.0 75 18 130/70 (90) 94 Room Air 07/24/17 07:30 94 Room Air 07/24/17 04:00 36.8 106 16 159/94 (115) 93 Room Air 07/24/17 04:00 Room Air 07/24/17 00:37 109 163/97 07/24/17 00:32 36.7 113 16 176/86 97 Room Air 07/23/17 23:00 108 19 166/97 96 Room Air 07/23/17 22:36 99 07/23/17 22:30 96 13 129/76 94 Room Air 07/23/17 21:59 103 22 137/77 95 Room Air 07/23/17 21:01 157/93 07/23/17 21:00 96 26 07/23/17 20:30 96 25 155/94 96 07/23/17 20:00 95 25 132/63 93 07/23/17 19:31 90 22 143/79 95 Room Air 07/23/17 18:38 87 19 142/103 96 Room Air 07/23/17 18:28 91 07/23/17 17:59 111 18 95 07/23/17 17:55 88 18 97 Room Air 07/23/17 17:50 92 20 97 07/23/17 17:45 89 20 98 07/23/17 17:40 78 18 98 07/23/17 17:29 84 21 146/82 97 Room Air 07/23/17 16:30 86 18 116/95 97 Room Air 07/23/17 15:30 83 23 133/86 96 Room Air 07/23/17 15:00 83 19 129/64 96 Room Air 07/23/17 14:28 87 07/23/17 14:12 93 Room Air 07/23/17 14:12 82 16 121/68 97 Room Air 07/23/17 13:49 36.7 07/23/17 13:46 96 Room Air 07/23/17 13:36 86 20 126/75 97 Room Air (Tayla Suazo, YURIY-C) Physical Exam General Appearance: no apparent distress Eyes: normal inspection, PERRL ENT: hearing grossly normal Neck: supple Respiratory/Chest: lungs clear, no respiratory distress, no accessory muscle use Cardiovascular: + systolic murmur, + irregularly irregular (rate controlled ) Abdomen: normal bowel sounds, non tender, soft Extremities: no pedal edema, no calf tenderness Neurologic/Psychiatric: alert, normal mood/affect, oriented x 3 Skin: normal color, warm/dry, no rash (Tayla Suazo, HOLLIS) Laboratory Results Last 24 Hours Test 07/23/17 14:00 07/23/17 14:32 07/23/17 14:38 07/24/17 05:05 White Blood Count 7.66 K/uL 8.14 K/uL Red Blood Count 4.07 M/uL 4.04 M/uL Hemoglobin 12.5 g/dL 12.1 g/dL Hematocrit 37.3 % 36.6 % Mean Corpuscular Volume 91.6 fL 90.6 fL Mean Corpuscular Hemoglobin 30.7 pg 30.0 pg Mean Corpuscular Hemoglobin Concent 33.5 g/dl 33.1 g/dl Platelet Count 182 K/uL 155 K/uL Mean Platelet Volume 10.5 fL 10.3 fL Neutrophils (%) (Auto) 59.2 % 62.2 % Lymphocytes (%) (Auto) 23.9 % 21.0 % Monocytes (%) (Auto) 12.0 % 11.5 % Eosinophils (%) (Auto) 2.0 % 2.1 % Basophils (%) (Auto) 1.2 % 0.9 % Neutrophils # (Auto) 4.54 K/uL 5.06 K/uL Lymphocytes # (Auto) 1.83 K/uL 1.71 K/uL Monocytes # (Auto) 0.92 K/uL 0.94 K/uL Eosinophils # (Auto) 0.15 K/uL 0.17 K/uL Basophils # (Auto) 0.09 K/uL 0.07 K/uL RDW Standard Deviation 47.4 fL 45.8 fL RDW Coefficient of Variation 14.1 % 13.9 % Immature Granulocyte % (Auto) 1.7 % 2.3 % Immature Granulocyte # (Auto) 0.13 K/uL 0.19 K/uL Prothrombin Time 41.3 SECONDS 38.1 SECONDS Prothromb Time International Ratio 4.0 3.7 Activated Partial Thromboplast Time 42.9 SECONDS Partial Thromboplastin Ratio 1.7 Sodium Level 137 mmol/L 136 mmol/L Potassium Level 3.5 mmol/L 3.6 mmol/L Chloride Level 102 mmol/L 102 mmol/L Carbon Dioxide Level 26 mmol/L 26 mmol/L Anion Gap 9.0 mmol/L 8.0 mmol/L Blood Urea Nitrogen 22 mg/dl 21 mg/dl Creatinine 1.33 mg/dl 1.11 mg/dl Estimated GFR () 54.5 67.9 Estimated GFR (Non- 47.1 58.6 BUN/Creatinine Ratio 16.3 19.2 Random Glucose 105 mg/dl 106 mg/dl Calcium Level 9.0 mg/dl 8.6 mg/dl Total Bilirubin 0.5 mg/dl 0.6 mg/dl Direct Bilirubin 0.1 mg/dl Aspartate Amino Transf (AST/SGOT) 45 U/L 45 U/L Alanine Aminotransferase (ALT/SGPT) 22 U/L 20 U/L Alkaline Phosphatase 155 U/L 149 U/L Total Creatine Kinase 96 U/L 74 U/L Creatine Kinase MB 3.3 ng/ml Creatine Kinase MB Ratio 3.4 Pro-B-Type Natriuretic Peptide 3504 pg/ml Total Protein 6.0 gm/dl 5.7 gm/dl Albumin 2.8 gm/dl 2.6 gm/dl Lipase 107 U/L Bedside Troponin I 0.030 ng/ml Nucleated RBC Absolute Count (auto) 0.02 K/uL Nucleated Red Blood Cells % 0.2 % Est Creatinine Clear Calc Drug Dose 45.1 ml/min Magnesium Level 1.7 mg/dl Troponin I 0.025 ng/ml Globulin 3.1 gm/dl Albumin/Globulin Ratio 0.8 Test 07/24/17 11:37 Total Creatine Kinase 89 U/L Troponin I 0.034 ng/ml (Tayla Suazo, PA-C) Assessment and Plan 89 years old man, with past medical history of chronic systolic congestive heart failure, atrial fibrillation, prostate cancer, dyslipidemia and Mantle cell lymphoma, who presented to the ED with substernal chest pain started after exertion. Chest pain w/ exertion- ACS r/o: - Admitted to tele for cardiac monitoring- a.fib w/ rates low/mid 100s - Trending cardiac enzymes- negative - EKG w/out ischemic changes - Cardiology consulted, appreciate recommendations -- Believe tachycardia causes symptoms -- Start Amiodarone 200 mg BID for better rate control- decrease to once daily in 1 month Hypomagnesemia: IV Mag 1 gm x1 dose- follow mag level and replace PRN A.fib, chronic systolic CHF w/ EF of 30-35%, HLD- follows w/ [place] cardiology: - IV Lasix 40 mg x1 dose today per cardiology- monitor I&Os and daily weights - Continue Lopressor 12.5 mg BID, ASA 81 mg daily, Amiodarone, Lipitor 10 mg daily - Coumadin held due to supratherapeutic INR- 3.7 today- continue to follow INR h/o prostate cancer: Casodex 50 mg QAM h/o mantle cell lymphoma- noted GERD, GI prophylaxis: Zantac 150 mg BID DVT prophylaxis: Coumadin Code Status: LEVEL I, FULL Dispo: From [facility]- PT/OT and CM consulted- likely discharge within the next 1-2 days (Tayla Suazo ., PARobi) Attending Attestation: Pt seen/examined, chart reviewed, care plan d/w YURIY Suazo. I agree w/ the crystal components of her documentation. Pt denied any dyspnea or chest pain during my visit. Denied any [place]. Tele reviewed - a. fib, with rates >100 at times. VSS, no fever gen - nad neck - no JVD during my visit heart - irregular, s1, s2, 2/6 systolic murmur LSB lungs - CTA b/l abd - soft, NT ext - no edema A/P: 1. chest pain - serial troponins negative. Due to a. fib with RVR? non- cardiac (e.g. GI)? other? cont to monitor 2. a. fib with RVR - cardiology has added amiodarone 200mg BID for rhythm/rate control. Could consider increase in BB if blood pressure allows. Cont daily INR checks; coumadin on hold for now due to supratherapeutic INR. 3. acute/chronic systolic CHF - additional lasix given today although by the time of my visit he was laying flat in the bed and was w/o JVD. Monitor; repeat BMP/mag in AM. Dixon Miller MD (Dixon Miller MD)
[2017-07-24] MEDS ORDERED: NURSING VERBAL MED ORDER ONE (12:45)
[2017-07-25 04:50] VITALS: BP 148/90; PULSE 86; TEMP 36.4; O2SAT 97
[2017-07-25 06:14] LABS: INR 2.6 (0.9-1.1)
[2017-07-25 06:37] LABS: CALCIUM 8.8 mg/dl (8.5-10.1); CREATININE 1.18 mg/dl (0.60-1.40); POTASSIUM 3.7 mmol/L (3.5-5.1)
[2017-07-25 07:42] VITALS: BP 155/89; PULSE 92; TEMP 36.9; O2SAT 93
[2017-07-25 08:00] VITALS: O2SAT 93
[2017-07-25] MEDS: MULTIVITAMIN TAB PO SCH (08:05)
[2017-07-25] MEDS: GABAPENTIN 300 MG CAP PO SCH (08:05)
[2017-07-25] MEDS: AMIODARONE 200 MG TAB PO SCH (08:05)
[2017-07-25] MEDS: RANITIDINE HCL 150 MG TAB PO SCH (08:05)
[2017-07-25] MEDS: ATORVASTATIN 10 MG TAB PO SCH (08:05)
[2017-07-25] MEDS: METOPROLOL TARTRATE 25 MG TAB PO SCH (08:05)
[2017-07-25] MEDS: BICALUTAMIDE 50 MG TAB PO SCH (08:05)
[2017-07-25] MEDS: ASPIRIN 81 MG ECTAB PO SCH (08:05)
--- NOTE | 2017-07-25 09:39 | CARDIOLOGY PROGRESS NOTE ---
DATE: 07/25/2017 SUBJECTIVE: Mr. Alfredo is resting comfortably in bed without complaints of chest pain or dyspnea. Does have occasional left-sided low back pain. Denies palpitations. OBJECTIVE: VITAL SIGNS: Blood pressure is 155/89 with an irregular pulse of 82. Respiratory rate is 18. The patient is afebrile at 36.9 degrees Celsius with saturation 93% on room air. NECK: Supple with full carotid upstrokes. No obvious bruits. Jugular venous pressure is flat at 90 degrees. There is no thyromegaly. CARDIOVASCULAR: Reveals an irregularly irregular rhythm with distant heart sounds. A 1/6 apical holosystolic murmur is noted. LUNGS: Clear without rales, rhonchi, or wheezes. ABDOMEN: Soft without bruits. EXTREMITIES: Reveal intact radial artery pulses bilaterally. There is no peripheral edema. LABORATORY DATA: Electrolytes sowed sodium of 137, potassium 3.7, chloride 98, bicarb 31, BUN 21, creatinine 1.18, glucose 92. Three troponin I levels are normal. monitoring and evaluation advisor showed no evidence of atrial fibrillation with a controlled ventricular response. IMPRESSION AND PLAN: 1. Chest pain syndrome -- has resolved. Not likely ischemic in etiology as troponins are all normal. No further workup indicated at this time. 2. Atrial fibrillation -- ventricular response now better controlled with the addition of amiodarone at 200 mg b.i.d. We will continue at this dose for 1 month, then decrease it daily. Could consider electrical cardioversion in approximately 3-4 weeks. 3. Chronic systolic congestive failure -- received 1 dose of intravenous Lasix yesterday and has lost 2.6 kilograms. Able to sleep supine suggesting euvolemia. 4. 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 5. Mild to moderate aortic insufficiency.
[2017-07-25] MEDS ORDERED: CRD200 PO ×2 (11:34)
--- NOTE | 2017-07-25 11:38 | Discharge Instructions ---
Discharge Instructions Date of Service Jul 25, 2017. Admission Reason for Admission: Precordial Chest Pain Discharge Discharge Diagnosis / Problem: Precordial chest pain Discharge Goals Goal(s): Decrease discomfort, Improve disease control, Learn about illness, Diagnostic testing, Therapeutic intervention, Prevent Disease Progression Activity Recommendations Activity Limitations: resume your previous activity . Instructions / Follow-Up Instructions / Follow-Up New medication: Amiodarone 200 mg twice daily- this is a new medication you were started on by cardiology for better heart rate control Resume all other regular home medications Continue routine INR checks as you have been FOLLOW-UPS: Please follow-up with your PCP within 5-7 days Please follow-up with Cardiology within 1 month Please follow-up/keep all of your subspecialty appointments Current Hospital Diet Patient's current hospital diet: AHA Diet (Heart Healthy) Discharge Diet Recommended Diet: AHA Diet (Heart Healthy) Pending Studies Studies pending at discharge: no Laboratory Results Hemoglobin A1c Test 07/17/17 19:14 Range/Units Estimated Average Glucose 117 mg/dl Hemoglobin A1c 5.7 H 4.5-5.6 % Lipid Panel Test 07/17/17 19:14 Range/Units Triglycerides Level 85 0-150 mg/dl Cholesterol Level 164 0-200 mg/dl HDL Cholesterol 39 mg/dl Cholesterol/HDL Ratio 4.2 LDL Cholesterol, Calculated 108 mg/dl Medical Emergencies . Who to Call and When: Medical Emergencies: If at any time you feel your situation is an emergency, please call 911 immediately. . Non-Emergent Contact Non-Emergency issues call your: Primary Care Provider . . "Provider Documentation" section prepared by Tayla Suazo. . VTE Core Measure Inpt VTE Proph given/why not?: David (Coumadin)Arlette, SCD's
--- NOTE | 2017-07-25 11:47 | Discharge Summary ---
Discharge Summary Date of Service Jul 25, 2017. Discharge Summary Admission Date: Jul 23, 2017 at 23:12 Discharge Date: Jul 25, 2017 Discharge Disposition: Personal care Principal Diagnosis: Precordial chest pain Problems/Secondary Diagnoses: Chest pain w/ exertion Hypomagnesemia A.fib acute on chronic systolic CHF w/ EF of 30-35% HLD h/o prostate cancer h/o mantle cell lymphoma GERD Immunizations: Have You Had Influenza Vaccine: Unknown History of Tetanus Vaccine?: utd History of Pneumococcal: Unknown History of Hepatitis B Vaccine: No Procedures: CHEST ONE VIEW PORTABLE CLINICAL HISTORY: Chest pain. COMPARISON STUDY: PET/CT July 03, 2017 and chest radiograph July 17, 2017. FINDINGS: Lung volumes are normal. Mild left basilar opacity suggests atelectasis. Note is made of moderate cardiomegaly without evidence of pulmonary edema. There is no consolidation to suggest pneumonia. There are multiple old bilateral rib fractures. No pneumothorax or pleural effusion is present. IMPRESSION: No acute cardiopulmonary findings. Electronically signed by: Enoc Carpenter M.D. 07/23/2017 2:49 PM Dictated Date/Time: 07/23/2017 2:48 PM The status of this report is Signed. Draft = Not yet reviewed or approved by Radiologist. Signed = Reviewed and approved by Radiologist. Consultations: Cardiology Medication Reconciliation New Medications: Amiodarone HCl (Amiodarone HCl) 200 Mg Tab 200 MG PO BID for 30 Days, #60 TAB Continued Medications: Aspirin (Aspirin EC Low Dose) 81 Mg Ectab 81 MG PO QAM for 30 Days Bicalutamide (Casodex) 50 Mg Tab 50 MG PO QAM, TAB Calcium Carbonate-Vitamin D (Oyster Shell Calcium/D3 500-400 mg-Unit) 1 Tab Tab 2 TABS PO DAILY Furosemide (Furosemide) 20 Mg Tab 20-40 MG PO DAILY PRN for "DEPENDS ON WT GAIN"., #30 Gabapentin (Neurontin) 300 Mg Cap 300 MG PO BID, CAP Leuprolide Acetate (Lupron Depot) 30 Mg Kit 30 MG IM Q4MO Metoprolol Tartrate (Lopressor) 25 Mg Tab 12.5 MG PO BID for 30 Days, #30 TAB Multivitamin (Multivitamin) Tab 1 TAB PO QAM, TAB [place]-3 Fatty Acids (Fish Oil 1200 mg) 1 Cap Cap 1200 MG PO DAILY Ranitidine HCl (Ranitidine HCl) 150 Mg Tab 150 MG PO BID, #30 TAB Warfarin Sodium (Coumadin) 5 Mg Tab 1 TAB PO 6XWK for 90 Days, TAB 1 Refill EVERY DAY EXCEPT MONDAYS. Warfarin Sodium (Warfarin Sodium) 5 Mg Tab 7.5 MG PO WK for 90 Days, TAB 3 Refills TAKES ON MONDAYS ONLY Discharge Exam Review of Systems: Constitutional: No fever, No chills, No sweats, No weakness, No fatigue Eyes: No worsening of vision ENT: No hearing loss Respiratory: No cough, No shortness of breath, No hemoptysis Cardiovascular: No chest pain, No edema, No palpitations Abdomen: No pain, No nausea, No vomiting, No diarrhea, No constipation Musculoskeletal: No joint pain, No muscle pain, No swelling, No calf pain Genitourinary - Male: No hematuria, No dysuria Neurologic: No weakness, No numbness/tingling Psychiatric: No depression symptoms, No anxiety Endocrine: No fatigue Hematologic / Lymphatic: No abnormal bleeding/bruising Integumentary: No rash, No itch, No new/changing skin lesions Physical Exam: General Appearance: no apparent distress Eyes: normal inspection, PERRL ENT: hearing grossly normal Neck: supple Respiratory/Chest: lungs clear, no respiratory distress, no accessory muscle use Cardiovascular: + systolic murmur, + irregularly irregular (rate controlled ) Abdomen / GI: normal bowel sounds, non tender, soft Extremities: no calf tenderness, no pedal edema Neurologic/Psychiatric: alert, normal mood/affect, oriented x 3 Skin: normal color, warm/dry, no rash Hospital Course Admission H&P: 89 years old man with past medical history of chronic systolic congestive heart failure, atrial fibrillation, prostate cancer, dyslipidemia and Mantle cell lymphoma. Presented to the ED with substernal chest pain started after exertion today. Pain was moderate in intensity, localized in the substernal area. No associated symptoms No aggravating or relieving factors. Pain resolved spontaneously after arriving to ED. This is his second ED visit for chest pain. ED physician discussed the case with relations manager recommended admitting the patient to rule out ACS Physical Exam Vital Signs Date Time Temp Pulse Resp B/P (MAP) Pulse Ox O2 Delivery O2 Flow Rate FiO2 07/23/17 22:36 99 07/23/17 22:30 96 13 129/76 94 Room Air 07/23/17 21:59 103 22 137/77 95 Room Air 07/23/17 21:01 157/93 07/23/17 21:00 96 26 07/23/17 20:30 96 25 155/94 96 07/23/17 20:00 95 25 132/63 93 07/23/17 19:31 90 22 143/79 95 Room Air 07/23/17 18:38 87 19 142/103 96 Room Air 07/23/17 18:28 91 07/23/17 17:59 111 18 95 07/23/17 17:55 88 18 97 Room Air 07/23/17 17:50 92 20 97 07/23/17 17:45 89 20 98 07/23/17 17:40 78 18 98 07/23/17 17:29 84 21 146/82 97 Room Air 07/23/17 16:30 86 18 116/95 97 Room Air 07/23/17 15:30 83 23 133/86 96 Room Air 07/23/17 15:00 83 19 129/64 96 Room Air 07/23/17 14:28 87 07/23/17 14:12 93 Room Air 07/23/17 14:12 82 16 121/68 97 Room Air 07/23/17 13:49 36.7 07/23/17 13:46 96 Room Air 07/23/17 13:36 86 20 126/75 97 Room Air General Appearance: WD/WN, no apparent distress Head: normocephalic, atraumatic Eyes: normal inspection, EOMI ENT: normal ENT inspection, hearing grossly normal Neck: supple Respiratory/Chest: chest non-tender, lungs clear, normal breath sounds, no respiratory distress, no accessory muscle use Cardiovascular: regular rate, rhythm, no edema, no gallop, no JVD, no murmur, normal peripheral pulses Abdomen/GI: normal bowel sounds, non tender, soft, no organomegaly, no pulsatile mass Back: normal inspection Extremities/Musculoskelatal: normal inspection, no calf tenderness, normal capillary refill, no pedal edema, normal range of motion Neurologic/Psych: manager revenue II-XII nml as tested, no motor/sensory deficits, alert, normal mood/affect, normal reflexes, oriented x 3 Skin: normal color, warm/dry, no rash Hospital Course: 89 years old man, with past medical history of chronic systolic congestive heart failure, atrial fibrillation, prostate cancer, dyslipidemia and Mantle cell lymphoma, who presented to the ED with substernal chest pain started after exertion. Chest pain w/ exertion- ACS r/o: - Admitted to [facility] for cardiac monitoring- a.fib w/ rates 80-90s - Trending cardiac enzymes- negative - EKG w/out ischemic changes - Cardiology consulted, appreciate recommendations -- Believe tachycardia causes symptoms -- Start Amiodarone 200 mg BID for better rate control- decrease to once daily in 1 month Hypomagnesemia- RESOLVED: IV Mag 1 gm x1 dose- follow mag level and replace PRN A.fib- rate controlled, acute on chronic systolic CHF w/ EF of 30-35%, HLD- follows w/ [place] cardiology: - IV Lasix 40 mg x1 dose today per cardiology- monitor I&Os and daily weights- resume Lasix PO PRN at discharge - Continue Lopressor 12.5 mg BID, ASA 81 mg daily, Amiodarone - Lipitor 10 mg daily started at admission due to ?ACS- recommend patient discuss statin therapy w/ cardiology/PCP - Coumadin held due to supratherapeutic INR- 2.6 today- resume Coumadin at discharge and continue INR f/u's h/o prostate cancer: Casodex 50 mg QAM h/o mantle cell lymphoma- noted GERD, GI prophylaxis: Zantac 150 mg BID DVT prophylaxis: Coumadin Code Status: LEVEL I, FULL Dispo: Discharge to [facility] Physician Supervision Note: I interviewed and examined the patient. Discussed with Tayla BOSCH and agree with findings and plan as documented in the note. Any exceptions or clarifications are listed here: None Patient admitted with rate-related chest pain from atrial fibrillation initiated on amiodarone therapy to be twice a day for one month and daily after that patient is in good condition on the day of his discharge she is not short of breath having no chest pain ambulating the halls Vitals are reviewed and stable cardiac exam sounds regular today his lungs are clear with good air movement -related chest pain due to A. fib and tachycardia controlled with amiodarone dosing to go home on the same plus formal anticoagulation with warfarin with expectation to reduce to daily dosing from twice a day dosing in 1 month's time sent out on 200 amiodarone twice a day Documented By: Lewis Storey Total Time Spent: Greater than 30 minutes This includes examination of the patient, discharge planning, medication reconciliation, and communication with other providers. Discharge Instructions Please refer to the electronic Patient Visit Report (Discharge Instructions) for additional information. Follow-Up Please follow-up with your PCP within 5-7 days Please follow-up with Cardiology within 1 month Please follow-up/keep all of your subspecialty appointments Additional Copies To Zechariah Johnson M.D.
[2017-07-25 11:59] VITALS: BP 138/82; PULSE 81; TEMP 36.6; O2SAT 90
[2017-07-25 12:00] VITALS: O2SAT 90
[2017-07-25 13:19] VITALS: BP 138/82
== END 2017-07-25 14:05 | disposition home health service (06) ==
LOC: C.EDB 13:35 → C.MED 23:12 → ENRESERV 23:48
PROVIDERS: ADMIT Internal Medicine; ATTEND Internal Medicine
DX: R07.2 Precordial pain (principal); I42.9 Cardiomyopathy, unspecified; I50.43 Acute on chronic combined systolic (congestive) and diastolic (congestive) heart failure; I08.0 Rheumatic disorders of both mitral and aortic valves; I48.91 Unspecified atrial fibrillation; E83.42 Hypomagnesemia; C61 Malignant neoplasm of prostate; D69.6 Thrombocytopenia, unspecified; I27.20 Pulmonary hypertension, unspecified; E78.5 Hyperlipidemia, unspecified; K21.9 Gastro-esophageal reflux disease without esophagitis; Z85.79 Personal history of other malignant neoplasms of lymphoid, hematopoietic and related tissues; Z79.82 Long term (current) use of aspirin; Z79.01 Long term (current) use of anticoagulants; Z90.49 Acquired absence of other specified parts of digestive tract; Z90.79 Acquired absence of other genital organ(s); Z80.0 Family history of malignant neoplasm of digestive organs; Z82.49 Family history of ischemic heart disease and other diseases of the circulatory system; Z83.3 Family history of diabetes mellitus; Z83.6 Family history of other diseases of the respiratory system

== ENCOUNTER 2017-07-26 09:34 | Emergency (ER) | payer BC ==
[~2017-07-26] VITALS: Ht 175.3 cm; Wt 78.6 kg
[~2017-07-26 09:34] MED LIST changes: -AMIO200T4 PO; -ASPI81TA28 PO; -ZNTT/150 PO
[2017-07-26 10:02] VITALS: Ht 175.3 cm; Wt 78.6 kg
--- NOTE | 2017-07-26 10:12 | EMERGENCY ROOM VISIT NOTE ---
History Report prepared by Khushboo: Madhavi Mackay Under the Supervision of: Dr. Robin Lees M.D. First contact with patient: 10:07 Chief Complaint: BACK PAIN Stated Complaint: SLIGHT TIGHTNESS IN CHEST, PAIN IN RIBS/BACK History of Present Illness The patient is a 89 year old male who presents to the Emergency Room with complaints of persistent chest pain that began at 0800. The patient states that he had a similar episode, that caused him to come to the Emergency Department on 07/23/17, noting they found him in atrial fibrillation. He notes he has intermittent nausea and some shortness of breath. He denies any vomiting, diarrhea, fevers, chills, dizziness, or changes in vision. The patient notes that he has been having back pain that began 3-4 days ago. Source of History: patient Onset: 0800 Position: chest Quality: other (chest pain) Timing: other (persistent) Associated Symptoms: + SOB, + nausea, + back pain, No fevers, No chills, No vomiting, No diarrhea Review of Systems See HPI for pertinent positives and negatives. A total of ten systems were reviewed and were otherwise negative. Past Medical & Surgical Medical Problems: (1) Atrial fibrillation (2) CHF (congestive heart failure) (3) DVT (deep venous thrombosis) (4) H/O blood clots (5) Heart disease (6) Lyme disease (7) Mantle cell lymphoma (8) Non-Hodgkin lymphoma (9) Prostate cancer (10) Shingles (11) Substernal discomfort Surgical Problems: (1) H/O prostatectomy (2) S/P appendectomy Family History Diabetes mellitus FH: cancer FH: heart disease FH: lung disease Hypertension Social History Smoking Status: Never Smoker Alcohol Use: occasionally Drug Use: none Marital Status: Housing Status: lives alone Occupation Status: unemployed Current/Historical Medications Scheduled Amiodarone HCl (Amiodarone HCl), 200 MG PO BID Aspirin (Aspirin EC Low Dose), 81 MG PO QAM Bicalutamide (Casodex), 50 MG PO QAM Calcium Carbonate-Vitamin D (Oyster Shell Calcium/D3 500-400 mg-Unit), 2 TABS PO DAILY Gabapentin (Neurontin), 300 MG PO BID Leuprolide Acetate (Lupron Depot), 30 MG IM Q4MO Metoprolol Tartrate (Lopressor), 12.5 MG PO BID Multivitamin (Multivitamin), 1 TAB PO QAM [place]-3 Fatty Acids (Fish Oil 1200 mg), 1,200 MG PO DAILY Ranitidine HCl (Ranitidine HCl), 150 MG PO BID Warfarin Sodium (Coumadin), 1 TAB PO 6XWK Warfarin Sodium (Warfarin Sodium), 7.5 MG PO WK Scheduled PRN Furosemide (Furosemide), 20-40 MG PO DAILY PRN for "DEPENDS ON WT GAIN". Allergies Coded Allergies: Acetazolamide (Verified Allergy, Unknown, Diamox Eye Drops ? rxn, 07/23/17) Physical Exam Vital Signs Date Time Temp Pulse Resp B/P (MAP) Pulse Ox O2 Delivery O2 Flow Rate FiO2 07/26/17 13:58 91 18 161/78 94 07/26/17 13:12 94 07/26/17 12:30 91 18 154/89 Room Air 07/26/17 11:32 36.5 128 18 150/116 95 Room Air 07/26/17 10:58 36.5 90 18 144/88 95 Room Air 07/26/17 10:46 36.5 92 18 160/96 91 Room Air 07/26/17 10:21 94 Room Air 07/26/17 10:15 92 07/26/17 10:02 36.5 96 20 141/82 100 Room Air Physical Exam GENERAL: Awake, alert, in no distress HENT: Dry mucous membranes. Normocephalic, atraumatic. Oropharynx unremarkable. EYES: Normal conjunctiva. Sclera non-icteric. NECK: Supple. No nuchal rigidity. FROM. No JVD. RESPIRATORY: Irregularly irregular rate. Clear to auscultation. CARDIAC: Regular rate, normal rhythm. Extremities warm and well perfused. Pulses equal. ABDOMEN: Soft, non-distended. No tenderness to palpation. No rebound or guarding. No masses. RECTAL: Deferred. MUSCULOSKELETAL: Chest examination reveals no tenderness. The back is symmetrical on inspection without obvious abnormality. Mild left upper paraspinal ttp.There is no CVA tenderness to palpation. No joint edema. LOWER EXTREMITIES: Calves are equal size bilaterally and non-tender. No edema. No discoloration. NEURO: Normal sensorium. No sensory or motor deficits noted. SKIN: No rash or jaundice noted. Medical Decision & Procedures ER Provider Diagnostic Interpretation: Radiology results as stated below per my review and radiologist interpretation: CHEST ONE VIEW PORTABLE CLINICAL HISTORY: CHEST PAIN dyspnea COMPARISON STUDY: 07/23/2017 FINDINGS: Atelectasis left base. Mild stable cardiomegaly. Moderate emphysematous change. No focal infiltrate. IMPRESSION: Platelike atelectasis left base. Moderate stable cardiomegaly. Emphysematous change. The above report was generated using voice recognition software. It may contain grammatical, syntax or spelling errors. Electronically signed by: Sharad Langston M.D. 07/26/2017 11:03 AM Dictated Date/Time: 07/26/2017 11:02 AM Laboratory Results 07/26/17 10:40 Red Blood Count 4.41, Mean Corpuscular Volume 90.9, Mean Corpuscular Hemoglobin 30.6, Mean Corpuscular Hemoglobin Concent 33.7, Mean Platelet Volume 10.7, Neutrophils (%) (Auto) 61.7, Lymphocytes (%) (Auto) 20.3, Monocytes (%) (Auto) 10.8, Eosinophils (%) (Auto) 1.4, Basophils (%) (Auto) 1.4, Neutrophils # (Auto ) 5.43, Lymphocytes # (Auto) 1.78, Monocytes # (Auto) 0.95, Eosinophils # (Auto ) 0.12, Basophils # (Auto) 0.12 07/26/17 10:40 Test 07/26/17 10:40 07/26/17 12:45 White Blood Count 8.79 K/uL (4.8-10.8) Red Blood Count 4.41 M/uL (4.7-6.1) Hemoglobin 13.5 g/dL (14.0-18.0) Hematocrit 40.1 % (42-52) Mean Corpuscular Volume 90.9 fL (80-100) Mean Corpuscular Hemoglobin 30.6 pg (25-34) Mean Corpuscular Hemoglobin Concent 33.7 g/dl (32-36) Platelet Count 147 K/uL (130-400) Mean Platelet Volume 10.7 fL (7.4-10.4) Neutrophils (%) (Auto) 61.7 % Lymphocytes (%) (Auto) 20.3 % Monocytes (%) (Auto) 10.8 % Eosinophils (%) (Auto) 1.4 % Basophils (%) (Auto) 1.4 % Neutrophils # (Auto) 5.43 K/uL (1.4-6.5) Lymphocytes # (Auto) 1.78 K/uL (1.2-3.4) Monocytes # (Auto) 0.95 K/uL (0.11-0.59) Eosinophils # (Auto) 0.12 K/uL (0-0.5) Basophils # (Auto) 0.12 K/uL (0-0.2) RDW Standard Deviation 46.8 fL (36.4-46.3) RDW Coefficient of Variation 14.0 % (11.5-14.5) Immature Granulocyte % (Auto) 4.4 % Immature Granulocyte # (Auto) 0.39 K/uL (0.00-0.02) Nucleated RBC Absolute Count (auto) 0.07 K/uL (0-0) Nucleated Red Blood Cells % 0.8 % Prothrombin Time 19.4 SECONDS (9.0-12.0) Prothromb Time International Ratio 1.9 (0.9-1.1) Anion Gap 11.0 mmol/L (3-11) Est Creatinine Clear Calc Drug Dose 39.5 ml/min Estimated GFR () 57.7 Estimated GFR (Non- 49.8 BUN/Creatinine Ratio 16.1 (10-20) Calcium Level 9.2 mg/dl (8.5-10.1) Total Bilirubin 0.9 mg/dl (0.2-1) Direct Bilirubin 0.3 mg/dl (0-0.2) Aspartate Amino Transf (AST/SGOT) 65 U/L (15-37) Alanine Aminotransferase (ALT/SGPT) 23 U/L (12-78) Alkaline Phosphatase 165 U/L (45-117) Pro-B-Type Natriuretic Peptide 5122 pg/ml (0-1800) Total Protein 6.3 gm/dl (6.4-8.2) Albumin 2.8 gm/dl (3.4-5.0) Lipase 119 U/L (73-393) Troponin I 0.016 ng/ml (0-0.045) Laboratory results reviewed by me ECG Indication: chest pain Rate (beats per minute): 100 Rhythm: atrial fibrillation Findings: PVC, no acute ischemic change, left axis deviation ED Course 1019: The patient was evaluated in room A4. A complete history and physical exam was performed. 1244: I reevaluated the patient, who was resting comfortably. The patient will be receiving a second troponin, if okay then the patient will see his doctor as scheduled on Saturday. 1342: The patients troponin was normal. I updated him on test findings and the treatment plan, he verbalized complete understanding and agreement. The patient was discharged home. Medical Decision I reviewed the patient's past medical history, medications, and the nursing notes as described above. The patient's presentation and history were concerning for atrial fibrillation, arythmia, pneumonia, bronchitis, ACS, CHF, and gastritis. The patient is an 89-year-old gentleman presents emergency Department with constant back pain for the past week and then chest pain with nausea that began this morning around 8:00 in the setting of being admitted and discharged yesterday for similar symptoms, found to be related to his A. fib per hpi. On arrival the patient is in no acute distress, afebrile with stable vital signs. A. fib rate controlled on EKG without signs of acute ischemia. Labs unremarkable including WBC and troponin within normal limits. BNP elevated to 5000 over chest x-ray without any pulmonary edema patient is without any respiratory symptoms saturating normally on room air. Delta 2 hour troponin also negative. Thus ACS unlikely as well as unlikely to have had any period of extensive RVR. Chest x-ray negative for pneumonia. Patient continued to be rate controlled throughout his ED observation and feeling improved. Patient really has PCP follow-up scheduled for Saturday from his recent discharge. Findings and plan for follow-up reviewed with patient. Patient agreeable and d/c 'd per discharge instructions. Medication Reconcilliation Current Medication List: was personally reviewed by me Blood Pressure Screening Patient's blood pressure: Elevated blood pressure Impression Primary Impression: Substernal chest pain Scribe Attestation The scribe's documentation has been prepared under my direction and personally reviewed by me in its entirety. I confirm that the note above accurately reflects all work, treatment, procedures, and medical decision making performed by me. Departure Information Dispostion Home / Self-Care Referrals Zechariah Johnson M.D. (PCP) Forms HOME CARE DOCUMENTATION FORM, IMPORTANT VISIT INFORMATION Patient Instructions ED Chest Pain Atypical Unkn Cause, My [facility] Additional Instructions Please follow up with your primary care physician on Saturday as scheduled for re- evaluation. Otherwise, your exam, EKG, chest xray, and lab results did not show signs of an emergent condition at this time. Return to the emergency department for worsening symptoms as described in the accompanying instructions.
[2017-07-26 10:21] VITALS: O2SAT 94
[2017-07-26 11:03] LABS: BASO % 1.4 %; BASO ABS # 0.12 K/uL (0-0.2); EOS % 1.4 %; EOS ABS # 0.12 K/uL (0-0.5); HEMATOCRIT 40.1 % (42-52); HEMOGLOBIN 13.5 g/dL (14.0-18.0); IG# 0.39 K/uL (0.00-0.02); LYMPH % 20.3 %; LYMPH ABS # 1.78 K/uL (1.2-3.4); MEAN CELL VOLUME 90.9 fL (80-100); MEAN CORPUSCULAR HEMOGLOBIN 30.6 pg (25-34); MEAN CORPUSCULAR HGB CONC 33.7 g/dl (32-36); MEAN PLATELET VOLUME 10.7 fL (7.4-10.4); MONO % 10.8 %; MONO ABS # 0.95 K/uL (0.11-0.59); NEUT % 61.7 %; NEUT ABS # 5.43 K/uL (1.4-6.5); NUCLEATED RED BLOOD CELL ABS 0.07 K/uL (0-0); PLATELET COUNT 147 K/uL (130-400); RED CELL DISTRIBUTION WIDTH SD 46.8 fL (36.4-46.3); WHITE BLOOD COUNT 8.79 K/uL (4.8-10.8)
--- NOTE | 2017-07-26 11:04 | DIAGNOSTIC IMAGING REPORT ---
CHEST ONE VIEW PORTABLE CLINICAL HISTORY: CHEST PAIN dyspnea COMPARISON STUDY: 07/23/2017 FINDINGS: Atelectasis left base. Mild stable cardiomegaly. Moderate emphysematous change. No focal infiltrate. IMPRESSION: Platelike atelectasis left base. Moderate stable cardiomegaly. Emphysematous change. The above report was generated using voice recognition software. It may contain grammatical, syntax or spelling errors. Electronically signed by: Sharad Langston M.D. 07/26/2017 11:03 AM Dictated Date/Time: 07/26/2017 11:02 AM
[2017-07-26 11:10] LABS: INR 1.9 (0.9-1.1)
[2017-07-26 11:13] LABS: ALBUMIN 2.8 gm/dl (3.4-5.0); CALCIUM 9.2 mg/dl (8.5-10.1); CREATININE 1.27 mg/dl (0.60-1.40); POTASSIUM 3.9 mmol/L (3.5-5.1)
[2017-07-26 11:18] LABS: TOTAL PROTEIN 6.3 gm/dl (6.4-8.2)
[2017-07-26 11:32] VITALS: TEMP 36.5
[2017-07-26 13:58] VITALS: BP 161/78; PULSE 91; O2SAT 94
== END 2017-07-26 14:00 | disposition home or self-care (01) ==
LOC: C.EDB 09:36 → C.EDA 14:00
DX: R07.2 Precordial pain (principal); I48.91 Unspecified atrial fibrillation; M54.9 Dorsalgia, unspecified; I50.9 Heart failure, unspecified; A69.20 Lyme disease, unspecified; C85.90 Non-Hodgkin lymphoma, unspecified, unspecified site; C83.10 Mantle cell lymphoma, unspecified site; Z85.46 Personal history of malignant neoplasm of prostate; Z79.82 Long term (current) use of aspirin; Z79.01 Long term (current) use of anticoagulants; Z83.3 Family history of diabetes mellitus; Z82.49 Family history of ischemic heart disease and other diseases of the circulatory system

== ENCOUNTER → 2017-07-26 | Outpatient (CLI) | payer BC ==
[~2017-07-26] MED LIST changes: +AMIO200T4 PO; +ASPI81TA28 PO; +CRD200 PO; +ZNTT/150 PO
== END | disposition home or self-care (01) ==
LOC: C.LABVPSUA 08:23
PROVIDERS: ATTEND Internal Medicine Critical Care Medicine
DX: M54.9 Dorsalgia, unspecified (principal); R34 Anuria and oliguria

== ENCOUNTER 2017-07-29 17:56 | Inpatient (IN) | payer BC, OTHER ==
[~2017-07-29] VITALS: Ht 175.3 cm; Wt 78.5 kg
[~2017-07-29 17:56] MED LIST changes: -AMIO200T4 PO; -ASPI81TA28 PO; -ZNTT/150 PO
[2017-07-29] MEDS ORDERED: PHYTONADIONE INJ 10 MG in SODIUM CHLORIDE 0.9% 50ML 50 ML IV ONE (19:15)
[2017-07-29] MEDS ORDERED: PANTOprazole INJ 80 MG in DEXTROSE 5% 100ML 100 ML IV SCH (19:15)
[2017-07-29] MEDS ORDERED: AMIO200T4 PO (20:06)
[2017-07-29] MEDS ORDERED: ASPI81TA28 PO (20:07)
[2017-07-29] MEDS ORDERED: LPR25 PO (20:09)
[2017-07-29] MEDS ORDERED: ZNTT/150 PO (20:12)
[2017-07-29] MEDS ORDERED: NITROGLYCERIN 0.4 MG SL PER TAB CHARGE SL PRN (20:30)
[2017-07-29] MEDS ORDERED: ONDANSETRON 8MG OD TAB PO PRN (20:45)
[2017-07-29] MEDS ORDERED: AMIODARONE HCL INJ 50 MG/ML 3 ML VIAL IV SCH (21:00)
[2017-07-29] MEDS: PANTOprazole INJ 40 MG in DEXTROSE 5% 100ML IV SCH (21:04)
[2017-07-29 21:06] LABS: HEMATOCRIT 37.6 % (42-52)
--- NOTE | 2017-07-29 21:33 | EMERGENCY ROOM VISIT NOTE ---
History First contact with patient: 18:16 Chief Complaint: OTHER COMPLAINT Stated Complaint: ABNORMAL LAB, BLOOD IN STOOL History of Present Illness The patient is a 89 year old male who was referred to the emergency department by his PCP for an INR level of 6.4, as well as black tarry stools. The patient reports he had an episode of black tarry stools this morning, and has not had this before. He states he has also had epigastric pain for the last 2 months, that is a 2-3/10 in severity. He denies a history of ulcers. He states he has also felt fatigued over the past few days, but denies dizziness, shortness of breath or chest pain. He reports he is on warfarin for his atrial fibrillation, as well as aspirin. 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 He denies hematemesis, hemoptysis, hematuria or mucosal bleeding. Review of Systems See HPI for pertinent positives & negatives. A total of 10 systems reviewed and were otherwise negative. Past Medical/Surgical History Medical Problems: (1) Acute blood loss anemia (2) Atrial fibrillation (3) CHF (congestive heart failure) (4) DVT (deep venous thrombosis) (5) H/O blood clots (6) Heart disease (7) Lyme disease (8) Mantle cell lymphoma (9) Non-Hodgkin lymphoma (10) Prostate cancer (11) Shingles (12) Substernal discomfort (13) Upper GI bleed Surgical Problems: (1) H/O prostatectomy (2) S/P appendectomy Family History Diabetes mellitus FH: cancer FH: heart disease FH: lung disease Hypertension Social History Smoking Status: Never Smoker Alcohol Use: occasionally Drug Use: none Marital Status: Housing Status: lives alone Occupation Status: unemployed Current/Historical Medications Scheduled Amiodarone Hcl (Cordarone), 200 MG PO BID Aspirin (Aspirin Ec), 81 MG PO QAM Bicalutamide (Casodex), 50 MG PO QAM Calcium Carbonate-Vitamin D (Oyster Shell Calcium/D3 500-400 mg-Unit), 2 TABS PO DAILY Gabapentin (Neurontin), 300 MG PO BID Leuprolide Acetate (Lupron Depot), 30 MG IM Q4MO Metoprolol Tartrate (Lopressor), 12.5 MG PO BID Multivitamin (Multivitamin), 1 TAB PO QAM [place]-3 Fatty Acids (Fish Oil 1200 mg), 1,200 MG PO DAILY Ranitidine (Zantac), 150 MG PO BID Warfarin Sodium (Coumadin), 1 TAB PO 6XWK Warfarin Sodium (Warfarin Sodium), 7.5 MG PO WK Scheduled PRN Furosemide (Furosemide), 20-40 MG PO DAILY PRN for "DEPENDS ON WT GAIN". Physical Exam Vital Signs Date Time Temp Pulse Resp B/P (MAP) Pulse Ox O2 Delivery O2 Flow Rate FiO2 07/29/17 21:09 98 22 132/72 96 Room Air 07/29/17 20:32 97 22 137/85 96 Room Air 07/29/17 19:19 102 07/29/17 19:18 97 18 125/68 94 Room Air 07/29/17 18:06 37.0 89 16 135/95 98 Room Air Physical Exam HEENT: Head - normocephalic and atraumatic. Mouth - moist buccal mucosa. Oropharynx is nonerythematous and there is no tonsillar exudate or edema noted. Heart: Irregularly irregular pulse There is a normal S1 and S2 with no murmurs , clicks, or gallops appreciated. Lungs: Clear to auscultation bilaterally with no wheezes, rales, or rhonchi. Abdomen: Soft, mild tenderness over epigastric region, nondistended, with good bowel sounds. There are no palpable pulsatile masses or hepatosplenomegaly. There is no guarding, rigidity, or rebound noted. Extremities: No evidence of cyanosis, clubbing, or edema. There are easily palpable peripheral pulses. Neuro:The patient is awake and alert, oriented to day, time, and place. Medical Decision & Procedures Laboratory Results 07/29/17 20:52 Test 07/29/17 19:12 Troponin I < 0.015 ng/ml (0-0.045) Medications Administered Medications (Trade) Dose Ordered Sig/Cj Route Start Time Stop Time Status Last Admin Dose Admin Phytonadione 10 mg/Sodium Chloride 51 ml @ 102 mls/hr ONE ONCE IV 07/29/17 19:15 07/29/17 19:44 DC 07/29/17 19:47 102 MLS/HR Pantoprazole Sodium 80 mg/ Dextrose 120 ml @ 400 mls/hr NOW IV 07/29/17 19:15 07/29/17 22:00 07/29/17 20:22 400 MLS/HR Pantoprazole Sodium 40 mg/ Dextrose 100 ml @ 20 mls/hr Q5H IV 07/29/17 21:00 07/30/17 01:59 07/29/17 21:04 20 MLS/HR ECG Indication: abdominal pain, weakness Rate (beats per minute): 90 Rhythm: atrial fibrillation ED Course 18:16: The patient was evaluated in room B3. A complete history and physical exam was performed. 18:30: The case was discussed with the attending, Dr. Garcia. 18:45: Stool Guaiac Positive 19:15: 10mg IV vitamin K and 80mg IV pantoprazole ordered 19:24: Dr. Garcia discussed the case with Dr. Abraham. 19:30: The patient was reassessed. He reports no new complaints. 19:43: Dr. Garcia discussed the case with [place]. Bag[place] who will evaluate the patient for admission. Medical Decision Etiologies such as peptic ulcer disease, diverticulosis, AVM, coagulopathy, colitis malignancy, gastritis, hemorrhoids, as well as others were entertained. Mr. Alfredo is an 89 year old gentleman who presented with black tarry stools and an INR level of 6.4. His hemoglobin level was 13 as per his lab work today. He was treated with IV protonix and 10mg of IV vitamin K. His troponin level was negative. He is currently hemodynamically stable. He warrants admission for further evaluation of his suspected upper GI bleed. Impression Primary Impression: Elevated INR Additional Impression: GI bleed Departure Information Dispostion Being Evaluated By Hospitalist Referrals Zechariah Johnson M.D. (PCP) Forms WORK / SCHOOL INSTRUCTIONS, HOME CARE DOCUMENTATION FORM, IMPORTANT VISIT INFORMATION Patient Instructions [facility] Resident Tracking Resident Involvement: Resident Care Provided Care Provided: Adult ED Problem Qualifiers Additional Impression: GI bleed GI bleed type/associated pathology: melena Qualified Codes: K92.1 - Melena
--- NOTE | 2017-07-29 21:49 | EMERGENCY ROOM VISIT NOTE ---
History Report prepared by Khushboo: Manas Ellis Under the Supervision of: Dr. Lewis Garcia M.D. First contact with patient: 18:16 Chief Complaint: OTHER COMPLAINT Stated Complaint: ABNORMAL LAB, BLOOD IN STOOL History of Present Illness The patient is an 89 year old male who presents to the Emergency Room with complaints of an episode of abnormal lab results and black, tarry stool beginning today. The patient states that he was referred by his PCP due to an INR of 6.4 and his black, tarry stool. He notes that he had one episode of the black, tarry stool this morning. He also complains of fatigue and epigastric pain. He reports that he has been experiencing epigastric pain for the past few months. The patient states that his epigastric pain feels like a burning. The patient states that he has a history of prostate cancer that has been resected, but has mets on his back and spine. He notes that he has come into the emergency department twice within the last week for chest pain. He reports that he takes Coumadin and aspirin starting on July 25 for his atrial fibrillation symptoms but does not have any history of ulcers. He denies any nausea, vomiting, lightheadedness, SOB, and CP. He also denies any Aleve or ibuprofen usage, but occasionally takes a Tylenol at night. He rates his epigastric pain as a 2-3/10. Source of History: patient Onset: this morning Position: other (global) Symptom Intensity: 2-3/10 Quality: other (black stools) Timing: resolved (1 episode) Associated Symptoms: + abdominal pain (epigastric), No chest pain, No SOB, No nausea, No vomiting Note: The patient also complains of fatigue. He denies any lightheadedness. Review of Systems I did review 10 or more systems which are negative unless otherwise indicated on the chart or HPI. Past Medical & Surgical Medical Problems: (1) Acute blood loss anemia (2) Atrial fibrillation (3) CHF (congestive heart failure) (4) DVT (deep venous thrombosis) (5) H/O blood clots (6) Heart disease (7) Lyme disease (8) Mantle cell lymphoma (9) Non-Hodgkin lymphoma (10) Prostate cancer (11) Shingles (12) Substernal discomfort (13) Upper GI bleed Surgical Problems: (1) H/O prostatectomy (2) S/P appendectomy Family History Diabetes mellitus FH: cancer FH: heart disease FH: lung disease Hypertension Social History Smoking Status: Never Smoker Alcohol Use: occasionally Drug Use: none Marital Status: Housing Status: lives alone Occupation Status: unemployed Current/Historical Medications Scheduled Amiodarone Hcl (Cordarone), 200 MG PO BID Aspirin (Aspirin Ec), 81 MG PO QAM Bicalutamide (Casodex), 50 MG PO QAM Calcium Carbonate-Vitamin D (Oyster Shell Calcium/D3 500-400 mg-Unit), 2 TABS PO DAILY Gabapentin (Neurontin), 300 MG PO BID Leuprolide Acetate (Lupron Depot), 30 MG IM Q4MO Metoprolol Tartrate (Lopressor), 12.5 MG PO BID Multivitamin (Multivitamin), 1 TAB PO QAM [place]-3 Fatty Acids (Fish Oil 1200 mg), 1,200 MG PO DAILY Ranitidine (Zantac), 150 MG PO BID Warfarin Sodium (Coumadin), 1 TAB PO 6XWK Warfarin Sodium (Warfarin Sodium), 7.5 MG PO WK Scheduled PRN Furosemide (Furosemide), 20-40 MG PO DAILY PRN for "DEPENDS ON WT GAIN". Allergies Coded Allergies: Acetazolamide (Verified Allergy, Unknown, Diamox Eye Drops ? rxn, 07/23/17) Physical Exam Vital Signs Date Time Temp Pulse Resp B/P (MAP) Pulse Ox O2 Delivery O2 Flow Rate FiO2 07/29/17 21:09 98 22 132/72 96 Room Air 07/29/17 20:32 97 22 137/85 96 Room Air 07/29/17 19:19 102 07/29/17 19:18 97 18 125/68 94 Room Air 07/29/17 18:06 37.0 89 16 135/95 98 Room Air Physical Exam Constitutional: Vital signs reviewed. Eyes: Pupils are equal round reactive to light. Conjunctiva are noninjected. ENT: Pharynx is clear without erythema or exudate. Mucous membranes are moist. Neck supple without meningeal signs. Respiratory: Clear to auscultation bilaterally. Breath sounds are equal bilaterally. Cardiovascular: Irregularly irregular rhythm. Normal rate. No rubs or gallops. GI: Soft, nondistended with mild epigastric tenderness. Bowel sounds are present. Musculoskeletal: No peripheral edema. No lower extremity tenderness. Integumentary: No cyanosis. Neurological: The patient is awake and alert. No focal deficits. Psychiatric: Normal affect. Medical Decision & Procedures Laboratory Results 07/29/17 20:52 Test 07/29/17 19:12 Troponin I < 0.015 ng/ml (0-0.045) Laboratory results as reviewed by me. Medications Administered Medications (Trade) Dose Ordered Sig/Cj Route Start Time Stop Time Status Last Admin Dose Admin Phytonadione 10 mg/Sodium Chloride 51 ml @ 102 mls/hr ONE ONCE IV 07/29/17 19:15 07/29/17 19:44 DC 07/29/17 19:47 102 MLS/HR Pantoprazole Sodium 80 mg/ Dextrose 120 ml @ 400 mls/hr NOW IV 07/29/17 19:15 07/29/17 22:00 07/29/17 20:22 400 MLS/HR Pantoprazole Sodium 40 mg/ Dextrose 100 ml @ 20 mls/hr Q5H IV 07/29/17 21:00 07/30/17 01:59 07/29/17 21:04 20 MLS/HR ECG Indication: abdominal pain Rate (beats per minute): 90 Rhythm: atrial fibrillation Findings: no acute ischemic change, no ectopy ED Course 1851: The patient was evaluated in room B3. A complete history and physical exam was performed. 1914: Phytonadione 10mg/Sodium Chloride 51 ml @ 102 mls/hr Protocol IV 1923: I spoke to Dr. Abraham - Pathology. We agree with vitamin K. 1942: Upon reevaluation, the patient appears stable. I discussed the treatment plan with him and he agrees. I discussed the patient's case with Dr. Bagley [place] [facility] [place] The patient will be evaluated for further management and care. Medical Decision This is an 89-year-old male who presents with black stools. Differential diagnosis includes GI bleed, peptic ulcer disease, gastritis, anemia, supratherapeutic INR. I did perform a limited focused review of portions of the patient's old chart on the electronic medical record. The patient has seen on July 23, 2015, and July 26, 2015. On July 23, the patient was admitted for chest pain and placed on amiodarone. On July 26, the patient was seen for chest tightness, and discharged after evaluation. I did evaluate the patient as noted above. IV access was established. The patient was placed on a continuous cardiac care nurse. I did order and review the patient's blood work as noted in the electronic medical record. I also reviewed his blood work from earlier today. His hemoglobin is stable. His INR is over 6. I did treat him with Protonix IV. I also gave him 10 mg of IV vitamin K. I did not feel the case and she was indicated at this time. I did discuss this with Dr. Abraham who agreed. She stated that while amiodarone may be contributing to his elevated INR, she knows him well from the clinic and has noted that his INR has occasionally spiked at times without clear reason. The patient was hospitalized for further evaluation. Resident Physician Supervision Note: I did evaluate and examine this patient myself. I did guide management for the patient. I agree with the resident's, Dr. Erlin Freire, assessment as discussed. Please see the resident's dictation for further details. Medication Reconcilliation Current Medication List: was personally reviewed by me Blood Pressure Screening Patient's blood pressure: Elevated blood pressure Blood pressure disposition: Referred to PCP Consults Time Called: 1919 Consulting Physician: Dr. Abraham - Pathology Returned Call: [address] Abraham - Pathology. We agree with vitamin K. Additional Consults: Time Called: 1939 Consulted Physician: Dr. Bagley Returned Call: 1942 Additional Comments: I discussed the patient's case with Dr. Bagley - [place] [facility] [place] The patient will be evaluated for further management and care. Impression Primary Impression: GI bleed Additional Impressions: Supratherapeutic INR Epigastric abdominal pain Scribe Attestation The scribe's documentation has been prepared under my direct and personally reviewed by me in its entirety. I confirm that the note above accurately reflects all work, treatment, procedures, and medical decision making performed by me. Departure Information Dispostion Being Evaluated By Hospitalist Referrals Zechariah Johnson M.D. (PCP) Patient Instructions My [facility] Problem Qualifiers Primary Impression: GI bleed GI bleed type/associated pathology: melena Qualified Codes: K92.1 - Melena
[2017-07-29 21:50] VITALS: BP 118/75; PULSE 110; TEMP 36.6; O2SAT 95; Ht 175.3 cm; Wt 78.5 kg
--- NOTE | 2017-07-29 21:51 | History and Physical ---
History & Physical Date & Time of Service: Jul 29, 2017 at 21:51 Chief Complaint: Abnormal Lab, Blood In Stool Primary Care Physician: Zechariah Johnson M.D. History of Present Illness Source: patient, spouse, hospital records The patient is a 89-year-old male referred to the emergency department by his PCP for an INR of 6.4, performed earlier in the day, and black tarry stools. The patient reports that he's had intermittent epigastric area pain for the past 2 months, and had a single episode of black tarry stools this morning. He reports fatigue over the past few days. He presently is on warfarin for atrial fibrillation, and also takes aspirin. Past Medical/Surgical History Medical Problems: (1) Atrial fibrillation Status: Chronic (2) CHF (congestive heart failure) Status: Chronic (3) DVT (deep venous thrombosis) Status: Chronic (4) H/O blood clots Status: Chronic (5) Heart disease Status: Chronic (6) Lyme disease Status: Chronic (7) Mantle cell lymphoma Status: Chronic (8) Non-Hodgkin lymphoma Status: Chronic (9) Prostate cancer Status: Chronic (10) Shingles Status: Resolved Surgical Problems: (1) H/O prostatectomy Status: Resolved (2) S/P appendectomy Status: Resolved Family History Diabetes mellitus FH: cancer FH: heart disease FH: lung disease Hypertension Social History Smoking Status: Never Smoker Smokeless Tobacco Use: No Alcohol Use: none Drug Use: none Marital Status: Housing status: lives with family Occupational Status: unemployed Immunizations History of Influenza Vaccine: Unknown History of Tetanus Vaccine?: utd History of Pneumococcal: Unknown History of Hepatitis B Vaccine: No Multi-Drug Resistant Organisms History of MDRO: No Allergies Coded Allergies: Acetazolamide (Verified Allergy, Unknown, Diamox Eye Drops ? rxn, 07/23/17) Home Medications Scheduled Amiodarone Hcl (Cordarone), 200 MG PO BID Aspirin (Aspirin Ec), 81 MG PO QAM Bicalutamide (Casodex), 50 MG PO QAM Calcium Carbonate-Vitamin D (Oyster Shell Calcium/D3 500-400 mg-Unit), 2 TABS PO DAILY Gabapentin (Neurontin), 300 MG PO BID Leuprolide Acetate (Lupron Depot), 30 MG IM Q4MO Metoprolol Tartrate (Lopressor), 12.5 MG PO BID Multivitamin (Multivitamin), 1 TAB PO QAM [place]-3 Fatty Acids (Fish Oil 1200 mg), 1,200 MG PO DAILY Ranitidine (Zantac), 150 MG PO BID Warfarin Sodium (Coumadin), 1 TAB PO 6XWK Warfarin Sodium (Warfarin Sodium), 7.5 MG PO WK Scheduled PRN Furosemide (Furosemide), 20-40 MG PO DAILY PRN for "DEPENDS ON WT GAIN". Review of Systems The patient denies chest pain, palpitations, shortness of breath, cough, lower extremity swelling, vision change, hearing change, sore throat, fevers, chills, sweats, nausea, vomiting, diarrhea or constipation , blood in urine or stool, dysuria, urinary frequency or urgency, memory loss, loss of consciousness, rash, focal weakness, numbness or tingling in arms or legs, generalized arthralgias or myalgias, back or neck pain, or night sweats. The review of systems is otherwise negative other than for that already noted above, and at least 10 systems have been reviewed. Physical Exam Vital Signs Date Time Temp Pulse Resp B/P (MAP) Pulse Ox O2 Delivery O2 Flow Rate FiO2 07/29/17 21:09 98 22 132/72 96 Room Air 07/29/17 20:32 97 22 137/85 96 Room Air 07/29/17 19:19 102 07/29/17 19:18 97 18 125/68 94 Room Air 07/29/17 18:06 37.0 89 16 135/95 98 Room Air The patient is awake, alert and oriented 3, normocephalic and atraumatic, appears lethargic, lying in bed and in no acute distress. HEENT--PERRL, EOMI, mucous membranes and oropharynx dry. Neck--supple, no JVD or bruits, thyroid normal, trachea midline, no adenopathy. Heart--irregularly irregular, no murmurs, rubs or gallops. Lungs--clear bilaterally with good air movement, no respiratory distress, no accessory muscle use. Abdomen--normal bowel sounds and soft, nontender and nondistended, no hernias or masses, no organomegaly. Extremities--no cyanosis, clubbing or edema. There are good distal pulses b/l. Dermatologic--normal skin turgor, normal color, warm and dry, no abnormal lymph nodes, no rash. Neurologic--cranial nerves II through XII grossly intact. Rheumatologic--normal range of motion. Psychiatric--flat affect. Diagnostics Laboratory Results Results Past 24 Hours Test 07/29/17 19:12 07/29/17 20:52 Range/Units Troponin I < 0.015 0-0.045 ng/ml Hemoglobin 13.0 14.0-18.0 g/dL Hematocrit 37.6 42-52 % EKG EKG shows atrial fibrillation at 90 bpm, left axis deviation, ST depressions V5 and V6, no change compared to 07/26/2017. Impression Assessment and Plan Upper GI bleed/acute blood loss anemia-- The patient will be admitted to telemetry for serial cardiac enzymes, cardiac rhythm monitoring and a 2-D echocardiogram with Dopplers. The patient is already received vitamin K by ED staff Hold fish oil, aspirin and warfarin H&H every 6 hours Continue Protonix drip begun in the ED Consent obtained for possible transfusion Nothing by mouth status Consult gastroenterology for possible EGD Atrial fibrillation/chronic anticoagulation with warfarin/reversal with 10 mg of vitamin K IV-- Repeat PT/INR in a.m. hold aspirin, metoprolol tartrate, amiodarone and warfarin. Consult his secretarial teacher Dr. Lee Peripheral neuropathy-- Hold gabapentin Metastatic prostate cancer-- Hold Casodex Lupron Depot IM injection is every 4 months Level of Care Telemetry Advanced Directives Existing Living Will: Yes Resuscitation Status FULL RESUSCITATION VTE Prophylaxis VTE Risk Assessment Done? Y/N: Yes Risk Level: Moderate Given or contraindicated: Warfarin (Coumadin) (anticoagulation is being reversed with vitamin K due to supratherapeutic INR)
[2017-07-29] MEDS: MoRPHine SULFATE 2 MG/ML CARP IV PRN (22:35)
[2017-07-29] MEDS: NSS + 20MEQ KCL 1000ML 1,000 ML IV SCH (22:35)
[2017-07-29 23:35] VITALS: BP 128/70; PULSE 105; TEMP 37.1; O2SAT 93
[2017-07-30] VITALS (21 sets, daily range): BP systolic 108–162; BP diastolic 65–89; PULSE 95–121; TEMP 36.4–37.1; O2SAT 90–95
[2017-07-30] MEDS: PANTOprazole INJ 40 MG in DEXTROSE 5% 100ML IV SCH ×2 (02:09→07:08)
[2017-07-30 02:45] LABS: HEMATOCRIT 37.3 % (42-52); HEMOGLOBIN 12.7 g/dL (14.0-18.0); MEAN CELL VOLUME 89.4 fL (80-100); MEAN CORPUSCULAR HEMOGLOBIN 30.5 pg (25-34); MEAN PLATELET VOLUME 10.3 fL (7.4-10.4); NUCLEATED RED BLOOD CELL ABS 0.18 K/uL (0-0); PLATELET COUNT 108 K/uL (130-400); RED CELL DISTRIBUTION WIDTH CV 14.6 % (11.5-14.5); RED CELL DISTRIBUTION WIDTH SD 47.1 fL (36.4-46.3); WHITE BLOOD COUNT 12.31 K/uL (4.8-10.8)
[2017-07-30 05:14] LABS: ALBUMIN 2.3 gm/dl (3.4-5.0); ALT/SGPT 20 U/L (12-78); AST/SGOT 72 U/L (15-37); BLOOD UREA NITROGEN 23 mg/dl (7-18); CARBON DIOXIDE 26 mmol/L (21-32); CREATININE 1.09 mg/dl (0.60-1.40); GLUCOSE 82 mg/dl (70-99); POTASSIUM 4.1 mmol/L (3.5-5.1); SODIUM 134 mmol/L (136-145)
[2017-07-30 05:19] LABS: ALKALINE PHOSPHATASE 127 U/L (45-117); CKMB 2.9 ng/ml (0.5-3.6); INR 1.6 (0.9-1.1); PTT PATIENT 33.6 SECONDS (21.0-31.0); TOTAL PROTEIN 4.9 gm/dl (6.4-8.2)
[2017-07-30 06:41] LABS: HEMATOCRIT 37.8 % (42-52)
--- NOTE | 2017-07-30 08:10 | Clinical Documentation Query ---
NICKI Ramirez : CLINICAL DOCUMENTATION QUERY Patient is an 89 year old male admitted from PCP with black tarry stools, intermittent epigastric pain, and fatigue in the setting of an INR of 6.4 in the setting of Coumadin therapy. As appropriate, consider documentation as suggested below as this impacts appropriate DRG assignment. In your clinical opinion is this patient being managed for: ( x ) Coagulation defect (or hemorrhagic disorder) secondary to Coumadin therapy and aspirin ( ) Not Agree ( ) Other explanation of clinical findings (Please Explain) ( ) Unable to determine (Please Define) ( ) Need to Discuss The medical record reflects the following clinical findings, treatment, and risk factors. Clinical Indicators: As above Treatment: Vitamin K, holding fish oil, ASA, Coumadin Risk Factors: Coumadin therapy CC: Bleeding d/t Therapeutic Anticoagulation [facility]oding [facility] [id number], p14 Question: Should bleeding due to therapeutic anticoagulant be coded as a hemorrhagic disorder (category D68)? Answer: For the most part, "hemorrhagic disorder" or "coagulation defects" must be specifically diagnosed and documented by the provider, in order to assign codes at category D68, Other coagulation defects. However, for bleeding such as hemoptysis, hematuria, hematemesis, hematochezia, etc., that is associated with a drug, as part of anticoagulation therapy, assign code D68.32, Hemorrhagic disorder due to extrinsic circulating anticoagulants. This is supported by the inclusion term at D68.32 of "Drug-induced hemorrhagic disorder." The sequencing of code D68.32 and other codes describing the type or site of bleeding, (e.g., hemoptysis or hematuria), would be dependent on the circumstances of the admission. Copyright (2018), [employer] [facility] [employer] ("[employer]"), [place], [place]. Reproduced with permission. No portion of this publication may be copied without the express, written consent of [facility]. Please clarify and document your clinical opinion in the progress notes and discharge summary. Terms such as "probable", "suspected", "likely", "questionable", "possible", or "still to be ruled out" are acceptable. IF IN AGREEMENT, YOU MUST DOCUMENT ABOVE DIAGNOSTIC STATEMENT IN DAILY PROGRESS NOTES AND DISCHARGE SUMMARY. This document is not part of the patient's record. Thank You, Farshad Bahena, SHANE [phone]
--- NOTE | 2017-07-30 08:57 | Gastrointestinal Consultation ---
Gastrointestinal Consultation Date of Consultation: Jul 30, 2017 Attending Physician: Dr. Bagley Consulting Physician: Cayla Frank PA-C Reason for Consultation: Upper GI Bleed on Coumadin History of Present Illness Patient is a 89 year old male with a PMH of CHF, DVT, Lyme Disease, Mantle Cell Lymphoma, metastatic prostate cancer, & Atrial fibrillation on Coumadin who presented to the ED after having outpatient labs obtained that indicated an INR of 6.4. The patient had reported black, tarry stools earlier that day prompting the laboratory evaluation. He reports epigastric pain that has been occurring intermittently x 2 months. He reports that yesterday was the first instance of melena. He denies hematemesis. He denies constipation or diarrhea. His last colonoscopy was in [address] Walls. His H/H is presently 13.0/37.8. The anemia appears normocytic. He has a mildly elevated WBC count of 12.31. His INR was reversed with vitamin K and is now 1.6. He is presently on a Pantoprazole drip. He is in atrial fibrillation. From the chart, it appears that he just recently began taking Coumadin this month. A cardiology consult is pending. It appears that in addition to Coumadin, he also takes aspirin, metoprolol tartrate, and amiodarone. He denies further NSAID use. He denies a pertinent family history. Past Medical/Surgical History Medical Problems: (1) Elevated INR Status: Acute (2) Epigastric abdominal pain Status: Acute (3) GI bleed Status: Acute (4) Precordial chest pain Status: Acute (5) Substernal chest pain Status: Acute (6) Substernal precordial chest pain Status: Acute (7) Superficial abrasion Status: Acute (8) Supratherapeutic INR Status: Acute Past Medical History: CHF, DVT, Lyme Disease, Mantle Cell Lymphoma, Metastatic Prostate Cancer, Atrial Fibrillation Past Surgical History: Prostatectomy, appendectomy Family History Diabetes mellitus FH: cancer FH: heart disease FH: lung disease Hypertension Social History Smoking Status: Never Smoker Alcohol Use: occasionally Drug Use: none Marital Status: Housing Status: lives alone Occupation Status: unemployed Allergies Coded Allergies: Acetazolamide (Verified Allergy, Unknown, Diamox Eye Drops ? rxn, 07/23/17) Current Medications Home Meds and Scripts Medications Dose Route/Sig Max Daily Dose Days Date Category Dose Instructions Zantac (Ranitidine HCl) 150 Mg Tab 150 Mg PO BID 07/29/17 Reported Aspirin Ec (Aspirin) 81 Mg Tab 81 Mg PO QAM 07/29/17 Reported Cordarone (Amiodarone Hcl) 200 Mg Tab 200 Mg PO BID 07/29/17 Reported Warfarin Sodium 5 Mg Tab 7.5 Mg PO WK 90 07/17/17 Reported TAKES ON MONDAYS ONLY Oyster Shell Calcium/D3 500-400 mg-Unit (Calcium Carbonate-Vitamin D) 1 Tab Tab 2 Tabs PO DAILY 07/17/17 Reported Fish Oil 1200 mg ([place]-3 Fatty Acids) 1 Cap Cap 1,200 Mg PO DAILY 07/17/17 Reported Lupron Depot (Leuprolide Acetate) 30 Mg Kit 30 Mg IM Q4MO 05/29/17 Reported Coumadin (Warfarin Sodium) 5 Mg Tab 1 Tab PO 6XWK 90 05/29/17 Reported EVERY DAY EXCEPT MONDAYS. Multivitamin (Multivitamins) Tab 1 Tab PO QAM 07/20/15 Reported Furosemide 20 Mg Tab 20-40 Mg PO DAILY PRN 01/15/15 Reported Casodex (Bicalutamide) 50 Mg Tab 50 Mg PO QAM 05/03/14 Reported Neurontin (Gabapentin) 300 Mg Cap 300 Mg PO BID 09/02/12 Reported Review of Systems Constitutional: No fever, No chills, No weakness Eyes: No problem reported Respiratory: No cough, No shortness of breath Cardiac: No chest pain Abdomen: + pain, No nausea, No vomiting, No diarrhea, No constipation, No GI bleeding Musculoskeletal: No joint pain Psych: No problem reported Skin: No problem reported Physical Exam Date Time Temp Pulse Resp B/P (MAP) Pulse Ox O2 Delivery O2 Flow Rate FiO2 07/30/17 07:50 36.7 104 20 128/75 (92) 93 Room Air 07/30/17 04:00 95 Room Air 07/30/17 03:35 36.9 108 20 124/78 (93) 91 Room Air 07/30/17 00:00 95 Room Air 07/29/17 23:35 37.1 105 22 128/70 (89) 93 Room Air 07/29/17 21:50 36.6 110 20 118/75 95 Room Air 07/29/17 21:09 98 22 132/72 96 Room Air 07/29/17 20:32 97 22 137/85 96 Room Air 07/29/17 19:19 102 07/29/17 19:18 97 18 125/68 94 Room Air 07/29/17 18:06 37.0 89 16 135/95 98 Room Air General Appearance: WD/WN, no apparent distress Eyes: normal inspection, PERRL ENT: + pertinent finding (Hard of hearing) Respiratory/Chest: lungs clear, normal breath sounds Cardiovascular: + irregularly irregular Abdomen: normal bowel sounds, non tender, soft Extremities: non-tender Neurologic/Psych: alert, oriented x 3 Skin: normal color Laboratory Results Last 24 Hours Test 07/29/17 19:12 07/29/17 20:52 07/30/17 02:13 07/30/17 04:32 Troponin I < 0.015 ng/ml < 0.015 ng/ml Hemoglobin 13.0 g/dL 12.7 g/dL Hematocrit 37.6 % 37.3 % White Blood Count 12.31 K/uL Red Blood Count 4.17 M/uL Mean Corpuscular Volume 89.4 fL Mean Corpuscular Hemoglobin 30.5 pg Mean Corpuscular Hemoglobin Concent 34.0 g/dl Platelet Count 108 K/uL Mean Platelet Volume 10.3 fL RDW Standard Deviation 47.1 fL RDW Coefficient of Variation 14.6 % Nucleated RBC Absolute Count (auto) 0.18 K/uL Neutrophils % (Manual) 80.5 % Lymphocytes % (Manual) 8.0 % Monocytes % (Manual) 3.5 % Eosinophils % (Manual) 1.8 % Basophils % (Manual) 0.9 % Metamyelocytes % 3.5 % Myelocytes % 1.8 % Nucleated Red Blood Cells % 1.5 % Neutrophils # (Manual) 9.91 K/uL Total Absolute Neutrophils 9.91 K/uL Lymphocytes # (Manual) 0.98 K/uL Total Absolute Lymphocytes 0.98 K/uL Monocytes # (Manual) 0.43 K/uL Eosinophils # (Manual) 0.22 K/uL Basophils # (Manual) 0.11 K/uL Metamyelocytes # 0.43 K/uL Myelocytes # 0.22 K/uL Prothrombin Time 16.4 SECONDS Prothromb Time International Ratio 1.6 Activated Partial Thromboplast Time 33.6 SECONDS Partial Thromboplastin Ratio 1.3 Sodium Level 134 mmol/L Potassium Level 4.1 mmol/L Chloride Level 98 mmol/L Carbon Dioxide Level 26 mmol/L Anion Gap 10.0 mmol/L Blood Urea Nitrogen 23 mg/dl Creatinine 1.09 mg/dl Est Creatinine Clear Calc Drug Dose 46.0 ml/min Estimated GFR () 69.4 Estimated GFR (Non- 59.9 BUN/Creatinine Ratio 20.9 Random Glucose 82 mg/dl Calcium Level 9.0 mg/dl Magnesium Level 1.6 mg/dl Total Bilirubin 0.8 mg/dl Direct Bilirubin 0.3 mg/dl Aspartate Amino Transf (AST/SGOT) 72 U/L Alanine Aminotransferase (ALT/SGPT) 20 U/L Alkaline Phosphatase 127 U/L Total Creatine Kinase 45 U/L Creatine Kinase MB 2.9 ng/ml Creatine Kinase MB Ratio 6.4 Total Protein 4.9 gm/dl Albumin 2.3 gm/dl Test 07/30/17 05:56 Hemoglobin 13.0 g/dL Hematocrit 37.8 % Impression Patient is a 89 year old male with atrial fibrillation recently started on Coumadin who presented with an INR of 6.4 and melena. His H/H is 13.0/37.8. His INR has been reversed with Vitamin K and is now 1.6. There have been no further episodes of melena. Plan 1) Continue Protonix infusion at 100 ml @ 20 ml/hr q 5 hr. 2) Continue to monitor H/H q 8 hours and monitor for signs of further GI bleeding. 3) Keep NPO. If medically cleared and stable from a cardiology perspective and if rates are controlled, could consider EGD today for further evaluation. Patient is agreeable to this plan of care. Discussed the risks/benefits of the procedure, particularly given advanced age and cardiac history, but patient feels that this is important to be done. 4) Supportive care per primary team. Thank you for allowing us to participate in the care of this patient. If you should have any further questions or concerns, do not hesitate to contact us. Agree with DE Butcher as above Abd: Soft, NT, ND, +BS Proceed with EGD this AM Discussed case with Dr. Lee of Cardiology, who felt that the patient was an acceptable risk to undergo EGD secondary to cardiac comorbidities.
--- NOTE | 2017-07-30 11:47 | CARDIOLOGY PROGRESS NOTE ---
DATE: 07/30/2017 DATE: 07/30/2017 SUBJECTIVE: Mr. Alfredo is resting comfortably in bed without complaints of chest pain, dyspnea, or palpitations. OBJECTIVE: VITAL SIGNS: Blood pressure is 128/75 with a regular pulse of 100. Respiratory rate is 20. The patient is afebrile at 36.7 degrees Celsius. Saturations 93% on room air. NECK: Supple with full carotid upstrokes. No carotid bruits. Jugular venous pressure is flat at 90 degrees. There is no thyromegaly. CARDIOVASCULAR EXAMINATION: Reveals an irregularly irregular rhythm with distant heart sounds. No obvious murmurs. LUNGS: Clear without rales, rhonchi, or wheezes. ABDOMEN: Soft with some mild tenderness in the mid epigastrium. EXTREMITIES: Reveal intact radial artery pulses bilaterally. There is no peripheral edema. LABORATORY DATA: CBC notes a hemoglobin of 13.0 and hematocrit 37.8. White count is 12.3, platelet count 108,000. Electrolytes note a sodium of 134, potassium 4.1, chloride 98, bicarb 26, BUN 23, creatinine 1.09, glucose 82. Two troponin I levels have been undetectable at less than 0.015. INR is down to 1.6 from a value of 6.4 at the time of admission. contract law specialist notes atrial fibrillation with borderline ventricular response. MEDICATIONS: 1. Protonix drip. 2. Amiodarone -- on hold. 3. Metoprolol tartrate -- on hold. 4. Aspirin -- on hold. 5. Warfarin -- on hold. IMPRESSION AND PLAN: 1. Upper gastrointestinal bleed - the patient has stabilized with the reversal of his Coumadin. He is scheduled for an upper endoscopy later today. He is an acceptable cardiac risk for that procedure. 2. Persistent atrial fibrillation -- was started on amiodarone to improve rate control during his last hospitalization. That medication is currently on hold. 3. Chronic systolic congestive heart failure -- compensated at this time. 4. Mild cardiomyopathy -- ejection fraction of 40-45% on echocardiogram June 2017. 5. Mild to moderate aortic insufficiency. 6. 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 7. History of mantle cell lymphoma. 8. Prostate carcinoma.
[2017-07-30] MEDS ORDERED: EpHEDrine SULFATE INJ 50 MG/ML AMP IV PRN (13:15)
[2017-07-30] MEDS ORDERED: ATROPINE SULFATE 0.1 MG/ML 5ML SYR IV PRN (13:15)
[2017-07-30] MEDS ORDERED: PROPOFOL IV EMULSION 10 MG/ML 20 ML VIAL IV ONE (13:28)
[2017-07-30] MEDS ORDERED: LIDOCAINE HCL 2% 2 ML VIAL (20MG/ML) ONE (13:28)
--- NOTE | 2017-07-30 13:49 | GI REPORT ---
Procedure Date: 07/30/2017 1:28 PM Procedure: Upper GI endoscopy Indications: Melena Medicines: Monitored Anesthesia Care Complications: No immediate complications. Estimated Blood Loss: Estimated blood loss: none. Procedure: Pre-Anesthesia Assessment: - Prior to the procedure, a History and Physical was performed, and patient medications and allergies were reviewed. The patient's tolerance of previous anesthesia was also reviewed. The risks and benefits of the procedure and the sedation options and risks were discussed with the patient. All questions were answered, and informed consent was obtained. Prior Anticoagulants: The patient last took aspirin 1 day and Coumadin (warfarin) 1 day prior to the procedure. ASA Grade Assessment: IV - A patient with severe systemic disease that is a constant threat to life. After reviewing the risks and benefits, the patient was deemed in satisfactory condition to undergo the procedure. After obtaining informed consent, the endoscope was passed under direct vision. Throughout the procedure, the patient's blood pressure, pulse, and oxygen saturations were monitored continuously. The Scope was introduced through the mouth, and advanced to the second part of duodenum. The upper GI endoscopy was accomplished without difficulty. The patient tolerated the procedure well. Findings: The esophagus was normal. Six non-bleeding cratered gastric ulcers with no stigmata of bleeding were found in the gastric fundus. The largest lesion was 15 mm in largest dimension. Biopsies were taken with a cold forceps for histology. The examined duodenum was normal. Impression: - Normal esophagus. - Non-bleeding gastric ulcers with no stigmata of bleeding. Biopsied. - Normal examined duodenum. Recommendation: - [facility]. - Use Protonix (pantoprazole) 40 mg PO BID. - Use sucralfate suspension 1 gram PO QID for 10 days. - Repeat upper endoscopy in 2 months to evaluate the response to therapy. - Await pathology results. Raman BethChandan DO [facility] 07/30/2017 1:49:20 PM This report has been signed electronically. Note Initiated On: 07/30/2017 1:28 PM I attest to the content of the Intraoperative Record and orders documented therein, exceptions below
--- NOTE | 2017-07-30 14:03 | Anesthesiology Progress Note ---
Anesthesia Post Op Note Date & Time Jul 30, 2017 at 14:02 Vital Signs Pain Intensity: 0 Vital Signs Past 12 Hours Date Time Temp Pulse Resp B/P (MAP) Pulse Ox O2 Delivery O2 Flow Rate FiO2 07/30/17 13:48 105 18 130/72 (91) 96 Room Air 07/30/17 12:45 36.5 95 18 108/74 (85) 98 Room Air 07/30/17 12:00 Room Air 07/30/17 12:00 37.0 116 22 122/65 (84) 93 Room Air 07/30/17 08:00 Room Air 07/30/17 07:50 36.7 104 20 128/75 (92) 93 Room Air 07/30/17 04:00 95 Room Air 07/30/17 03:35 36.9 108 20 124/78 (93) 91 Room Air Notes Mental Status: alert / awake / arousable, participated in evaluation Pt Amnestic to Procedure: Yes Nausea / Vomiting: adequately controlled Pain: adequately controlled Airway Patency, RR, SpO2: stable & adequate BP & HR: stable & adequate Hydration State: stable & adequate Anesthetic Complications: no major complications apparent
[2017-07-30] MEDS ORDERED: PHENYLEPHRINE 100MCG/ML 5ML SYR ONE (14:21)
[2017-07-30 14:46] LABS: HEMATOCRIT 38.5 % (42-52)
[2017-07-30 15:19] LABS: CKMB 4.1 ng/ml (0.5-3.6)
--- NOTE | 2017-07-30 17:55 | Progress Note ---
Subjective Date of Service: Jul 30, 2017. Subjective Pt evaluation today including: conversation w/ patient, physical exam, chart review, lab review, review of studies, review of inpatient medication list feeling better just a little groggy on directed questioning admits to epigastric pain the last few weeks, had cut down on coffee because it was hurting his stoamch feels better now no ongoing bleeding no other complaints or sx Problem List Medical Problems: (1) Elevated INR Status: Acute (2) Epigastric abdominal pain Status: Acute (3) GI bleed Status: Acute (4) Precordial chest pain Status: Acute (5) Substernal chest pain Status: Acute (6) Substernal precordial chest pain Status: Acute (7) Superficial abrasion Status: Acute (8) Supratherapeutic INR Status: Acute Review of Systems all other ROS otherwise negative except for as above Objective Vital Signs Date Time Temp Pulse Resp B/P (MAP) Pulse Ox O2 Delivery O2 Flow Rate FiO2 07/30/17 16:32 113 25 162/89 (105) 07/30/17 16:30 109 20 07/30/17 16:16 111 22 108/76 (78) 07/30/17 16:15 106 21 07/30/17 16:01 100 22 124/70 (80) 94 07/30/17 16:00 111 22 95 07/30/17 15:46 108 24 129/81 (105) 90 07/30/17 15:45 112 20 92 07/30/17 15:31 109 19 135/76 (99) 92 07/30/17 15:30 99 22 94 07/30/17 15:16 101 22 139/81 (89) 07/30/17 15:15 109 19 07/30/17 15:15 36.4 95 23 139/81 (100) 92 Room Air 07/30/17 15:01 105 23 135/80 (90) 07/30/17 15:00 109 26 07/30/17 14:39 36.6 108 18 124/75 (91) 95 Room Air 07/30/17 14:03 98 18 127/80 (96) 94 Room Air 07/30/17 13:48 105 18 130/72 (91) 96 Room Air 07/30/17 12:45 36.5 95 18 108/74 (85) 98 Room Air 07/30/17 12:00 Room Air 07/30/17 12:00 37.0 116 22 122/65 (84) 93 Room Air 07/30/17 08:00 Room Air 07/30/17 07:50 36.7 104 20 128/75 (92) 93 Room Air 07/30/17 04:00 95 Room Air 07/30/17 03:35 36.9 108 20 124/78 (93) 91 Room Air 07/30/17 00:00 95 Room Air 07/29/17 23:35 37.1 105 22 128/70 (89) 93 Room Air 07/29/17 21:50 36.6 110 20 118/75 95 Room Air 07/29/17 21:09 98 22 132/72 96 Room Air 07/29/17 20:32 97 22 137/85 96 Room Air 07/29/17 19:19 102 07/29/17 19:18 97 18 125/68 94 Room Air 07/29/17 18:06 37.0 89 16 135/95 98 Room Air Physical Exam General Appearance: no apparent distress Eyes: EOMI ENT: hearing grossly normal Neck: trachea midline Respiratory/Chest: no respiratory distress, no accessory muscle use Abdomen: + pertinent finding (soft nd, mild epigastric ttp no guarding no rebound no rigidity) Extremities: normal range of motion Neurologic/Psychiatric: or assistant II-XII nml as tested, alert, normal mood/affect Skin: normal color, warm/dry Laboratory Results Last 24 Hours Test 07/29/17 19:12 07/29/17 20:52 07/30/17 02:13 07/30/17 04:32 Troponin I < 0.015 ng/ml < 0.015 ng/ml Hemoglobin 13.0 g/dL 12.7 g/dL Hematocrit 37.6 % 37.3 % White Blood Count 12.31 K/uL Red Blood Count 4.17 M/uL Mean Corpuscular Volume 89.4 fL Mean Corpuscular Hemoglobin 30.5 pg Mean Corpuscular Hemoglobin Concent 34.0 g/dl Platelet Count 108 K/uL Mean Platelet Volume 10.3 fL RDW Standard Deviation 47.1 fL RDW Coefficient of Variation 14.6 % Nucleated RBC Absolute Count (auto) 0.18 K/uL Neutrophils % (Manual) 51.4 % Band Neutrophils % (Manual) 0.0 % Lymphocytes % (Manual) 27.9 % Variant Lymphocytes % (manual) 0.0 % Monocytes % (Manual) 8.1 % Eosinophils % (Manual) 3.6 % Basophils % (Manual) 0.9 % Metamyelocytes % 3.6 % Myelocytes % 2.7 % Blast Cells % 1.8 % Nucleated Red Blood Cells % 1.5 % Neutrophils # (Manual) 6.33 K/uL Total Absolute Neutrophils 6.33 K/uL Lymphocytes # (Manual) 3.43 K/uL Total Absolute Lymphocytes 3.43 K/uL Monocytes # (Manual) 1.00 K/uL Eosinophils # (Manual) 0.44 K/uL Basophils # (Manual) 0.11 K/uL Metamyelocytes # 0.44 K/uL Myelocytes # 0.33 K/uL Percent Large Granular Lymphocytes 0.0 % Blast Cells # 0.22 K/uL Prothrombin Time 16.4 SECONDS Prothromb Time International Ratio 1.6 Activated Partial Thromboplast Time 33.6 SECONDS Partial Thromboplastin Ratio 1.3 Sodium Level 134 mmol/L Potassium Level 4.1 mmol/L Chloride Level 98 mmol/L Carbon Dioxide Level 26 mmol/L Anion Gap 10.0 mmol/L Blood Urea Nitrogen 23 mg/dl Creatinine 1.09 mg/dl Est Creatinine Clear Calc Drug Dose 46.0 ml/min Estimated GFR () 69.4 Estimated GFR (Non- 59.9 BUN/Creatinine Ratio 20.9 Random Glucose 82 mg/dl Calcium Level 9.0 mg/dl Magnesium Level 1.6 mg/dl Total Bilirubin 0.8 mg/dl Direct Bilirubin 0.3 mg/dl Aspartate Amino Transf (AST/SGOT) 72 U/L Alanine Aminotransferase (ALT/SGPT) 20 U/L Alkaline Phosphatase 127 U/L Total Creatine Kinase 45 U/L Creatine Kinase MB 2.9 ng/ml Creatine Kinase MB Ratio 6.4 Total Protein 4.9 gm/dl Albumin 2.3 gm/dl Test 07/30/17 05:56 07/30/17 14:35 Hemoglobin 13.0 g/dL 13.0 g/dL Hematocrit 37.8 % 38.5 % Total Creatine Kinase 56 U/L Creatine Kinase MB 4.1 ng/ml Creatine Kinase MB Ratio 7.3 Troponin I 0.112 ng/ml Assessment and Plan upper GI bleeding -due to stomach ulcers and coumadin coagulopathy PUD -stomach ulcers likely asa induced -pt notes no hx of CAD/cerebrovascular disease - hold indefinitely -continue protonix coumadin coagulopathy -almost certainly the final reason for the bleeding -reversed afib, prior DVT -w ulcers and bleeding above - continue off coumadin for now, but snf risk will favor resuming -- follow Hgb and clinical status closely as outpt and work to resume coumadin as soon as is safe peripheral neuropathy -gabapentin metastatic prostate cancer -outpt management DVT proph -ambulation as best as possible - pharmacologic obviously contraindicated due to PUD/bleeding
[2017-07-30] MEDS: NSS + 20MEQ KCL 1000ML 1,000 ML IV SCH (18:09)
[2017-07-30] MEDS: SUCRALFATE 1 GM/10 ML UDC PO SCH ×2 (18:10→19:23)
[2017-07-30] MEDS: PANTOprazole SOD 40 MG TAB PO SCH (19:23)
--- NOTE | 2017-07-30 22:36 | Medical Student: [facility] ---
Med Student Progress Note Date of Service Jul 30, 2017. Subjective Pt evaluation today including: conversation w/ patient Pain: Patient is having back pain Today the patient states that he is not doing well. He describes to me a 1 day history of black and tarry stools. He states that he called his doctors office and they told him to come to the hospital. He also describes feeling more fatigued over the past year or so. The patient appears to be in moderate distress do to back pain. He says it is because he has been laying down for the past several days while in the hospital. He also has decreased alertness and struggles to keep his eyes open for me as I talk with him during the interview. It is unclear how good a historian the patient is, and he mentions his daughter takes care of his medical affairs. The patient has a history significant for CHF, atrial fibrillation, current mantel cell lymphoma, and current adenocarcinoma of the prostate. Objective Vital Signs Date Time Temp Pulse Resp B/P (MAP) Pulse Ox O2 Delivery O2 Flow Rate FiO2 07/30/17 12:45 36.5 95 18 108/74 (85) 98 Room Air 07/30/17 12:00 Room Air 07/30/17 12:00 37.0 116 22 122/65 (84) 93 Room Air 07/30/17 08:00 Room Air 07/30/17 07:50 36.7 104 20 128/75 (92) 93 Room Air 07/30/17 04:00 95 Room Air 07/30/17 03:35 36.9 108 20 124/78 (93) 91 Room Air 07/30/17 00:00 95 Room Air 07/29/17 23:35 37.1 105 22 128/70 (89) 93 Room Air 07/29/17 21:50 36.6 110 20 118/75 95 Room Air 07/29/17 21:09 98 22 132/72 96 Room Air 07/29/17 20:32 97 22 137/85 96 Room Air 07/29/17 19:19 102 07/29/17 19:18 97 18 125/68 94 Room Air 07/29/17 18:06 37.0 89 16 135/95 98 Room Air Physical Exam General Appearance: WD/WN, + moderate distress Eyes: bilateral eyes normal inspection Laboratory Results Last 24 Hours Test 07/29/17 19:12 07/29/17 20:52 07/30/17 02:13 07/30/17 04:32 Troponin I < 0.015 ng/ml < 0.015 ng/ml Hemoglobin 13.0 g/dL 12.7 g/dL Hematocrit 37.6 % 37.3 % White Blood Count 12.31 K/uL Red Blood Count 4.17 M/uL Mean Corpuscular Volume 89.4 fL Mean Corpuscular Hemoglobin 30.5 pg Mean Corpuscular Hemoglobin Concent 34.0 g/dl Platelet Count 108 K/uL Mean Platelet Volume 10.3 fL RDW Standard Deviation 47.1 fL RDW Coefficient of Variation 14.6 % Nucleated RBC Absolute Count (auto) 0.18 K/uL Neutrophils % (Manual) 80.5 % Band Neutrophils % (Manual) 0.0 % Lymphocytes % (Manual) 8.0 % Variant Lymphocytes % (manual) 0.0 % Monocytes % (Manual) 3.5 % Eosinophils % (Manual) 1.8 % Basophils % (Manual) 0.9 % Metamyelocytes % 3.5 % Myelocytes % 1.8 % Nucleated Red Blood Cells % 1.5 % Neutrophils # (Manual) 9.91 K/uL Total Absolute Neutrophils 9.91 K/uL Lymphocytes # (Manual) 0.98 K/uL Total Absolute Lymphocytes 0.98 K/uL Monocytes # (Manual) 0.43 K/uL Eosinophils # (Manual) 0.22 K/uL Basophils # (Manual) 0.11 K/uL Metamyelocytes # 0.43 K/uL Myelocytes # 0.22 K/uL Percent Large Granular Lymphocytes 0.0 % Prothrombin Time 16.4 SECONDS Prothromb Time International Ratio 1.6 Activated Partial Thromboplast Time 33.6 SECONDS Partial Thromboplastin Ratio 1.3 Sodium Level 134 mmol/L Potassium Level 4.1 mmol/L Chloride Level 98 mmol/L Carbon Dioxide Level 26 mmol/L Anion Gap 10.0 mmol/L Blood Urea Nitrogen 23 mg/dl Creatinine 1.09 mg/dl Est Creatinine Clear Calc Drug Dose 46.0 ml/min Estimated GFR () 69.4 Estimated GFR (Non- 59.9 BUN/Creatinine Ratio 20.9 Random Glucose 82 mg/dl Calcium Level 9.0 mg/dl Magnesium Level 1.6 mg/dl Total Bilirubin 0.8 mg/dl Direct Bilirubin 0.3 mg/dl Aspartate Amino Transf (AST/SGOT) 72 U/L Alanine Aminotransferase (ALT/SGPT) 20 U/L Alkaline Phosphatase 127 U/L Total Creatine Kinase 45 U/L Creatine Kinase MB 2.9 ng/ml Creatine Kinase MB Ratio 6.4 Total Protein 4.9 gm/dl Albumin 2.3 gm/dl Test 07/30/17 05:56 07/30/17 12:49 Hemoglobin 13.0 g/dL Hematocrit 37.8 % Creatine Kinase MB Ratio Medications Current Inpatient Medications Medications (Trade) Dose Ordered Sig/Cj Route Start Time Stop Time Status Last Admin Dose Admin Potassium Chloride/Sodium Chloride 1,000 ml @ 50 mls/hr Q20H IV 07/29/17 22:30 08/28/17 20:26 07/29/17 22:35 50 MLS/HR Nitroglycerin (Nitrostat Tab) 0.4 mg UD PRN SL 07/29/17 20:30 08/28/17 20:29 Ondansetron HCl (Zofran Odt) 8 mg Q6H PRN PO 07/29/17 20:45 08/28/17 20:44 07/29/17 22:36 8 MG Morphine Sulfate (MoRPHine SULFATE INJ) 2 mg Q2H PRN IV 07/29/17 20:45 08/12/17 20:44 07/29/17 22:35 2 MG Pantoprazole Sodium 40 mg/ Dextrose 100 ml @ 20 mls/hr Q5H IV 07/29/17 21:00 08/28/17 20:59 07/30/17 07:08 20 MLS/HR Ephedrine Sulfate (EpHEDrine SULFATE INJ) 5 mg Q5M PRN IV 07/30/17 13:15 07/31/17 13:14 UNV Atropine Sulfate (Atropine Sulfate 0.1mg/ml Inj) 0.5 mg Q1M PRN IV 07/30/17 13:15 07/31/17 13:14 UNV Assessment and Plan Assessment and Plan: A/P: Elevated INR -recived Vit. K injection for warfarin reversal -Discontinue warfarin for a short period of time to give ulcers time to heal before continuing in a few weeks/months. Stomach ulcers -EGD performed today showed 6 gastric ulcers -Continue PPI -Follow up with Hbg/Hct before discharge and again 1 week after discharge from hospital -Was taking an 81 mg Aspirin, this is to be discontinued for the time being
[2017-07-30] MEDS: MoRPHine SULFATE 2 MG/ML CARP IV PRN (23:19)
[2017-07-31] VITALS (9 sets, daily range): BP systolic 125–134; BP diastolic 69–83; PULSE 103–112; TEMP 36–37.2; O2SAT 92–96
[2017-07-31 07:05] LABS: HEMATOCRIT 37.6 % (42-52); HEMOGLOBIN 12.5 g/dL (14.0-18.0); MEAN CELL VOLUME 90.2 fL (80-100); MEAN CORPUSCULAR HGB CONC 33.2 g/dl (32-36); MEAN PLATELET VOLUME 10.7 fL (7.4-10.4); NUCLEATED RED BLOOD CELL ABS 0.27 K/uL (0-0); PLATELET COUNT 102 K/uL (130-400); RED CELL DISTRIBUTION WIDTH CV 14.8 % (11.5-14.5); RED CELL DISTRIBUTION WIDTH SD 48.1 fL (36.4-46.3); WHITE BLOOD COUNT 14.82 K/uL (4.8-10.8)
[2017-07-31 07:13] LABS: INR 1.1 (0.9-1.1)
[2017-07-31 07:44] LABS: CALCIUM 9.1 mg/dl (8.5-10.1); CREATININE 1.2 mg/dl (0.60-1.40); POTASSIUM 4.2 mmol/L (3.5-5.1)
--- NOTE | 2017-07-31 09:05 | Gastroenterology Progress Note ---
Progress Note Date of Service: Jul 31, 2017 Subjective Pt evaluation today including: conversation w/ patient, physical exam, lab review, review of studies Patient is an 89 yo male with anemia & melena who underwent an EGD on 07/30/17 that indicated 6 gastric ulcers. The patient is off his Coumadin and aspirin at the moment. His H/H is stable at 12.5/37.6. He denies any further melena. He reports that he does not feel any epigastric pain, heartburn, reflux, or burning at the present time. He offers no further GI complaints at this time. His troponins are slightly bumped today. Cardiology and the primary team are following. Demand ischemia is suspected. Review of Systems Constitutional: No fever, No chills Respiratory: No cough, No shortness of breath Cardiac: No chest pain Abdomen: No pain, No nausea, No vomiting, No diarrhea, No constipation, No GI bleeding Skin: No problem reported Medications Current Inpatient Medications Medications (Trade) Dose Ordered Sig/Cj Route Start Time Stop Time Status Last Admin Dose Admin Potassium Chloride/Sodium Chloride 1,000 ml @ 50 mls/hr Q20H IV 07/29/17 22:30 08/28/17 20:26 07/30/17 18:09 50 MLS/HR Nitroglycerin (Nitrostat Tab) 0.4 mg UD PRN SL 07/29/17 20:30 08/28/17 20:29 Ondansetron HCl (Zofran Odt) 8 mg Q6H PRN PO 07/29/17 20:45 08/28/17 20:44 07/29/17 22:36 8 MG Morphine Sulfate (MoRPHine SULFATE INJ) 2 mg Q2H PRN IV 07/29/17 20:45 08/12/17 20:44 07/30/17 23:19 2 MG Pantoprazole Sodium (Protonix Tab) 40 mg BID PO 07/30/17 21:00 08/29/17 20:59 07/30/17 19:23 40 MG Sucralfate (Carafate Susp) 1 gm QID PO 07/30/17 17:00 08/29/17 16:59 07/30/17 19:23 1 GM Objective Vital Signs Date Time Temp Pulse Resp B/P (MAP) Pulse Ox O2 Delivery O2 Flow Rate FiO2 07/31/17 08:03 36.3 107 19 125/72 (89) 95 Room Air 07/31/17 08:00 Room Air 07/31/17 04:00 Room Air 07/31/17 03:39 37.2 104 24 132/69 (90) 95 Room Air 07/31/17 00:00 Room Air 07/30/17 20:00 Room Air 07/30/17 19:26 36.8 119 23 121/65 (83) 94 Room Air 07/30/17 16:32 113 25 162/89 (105) 07/30/17 16:30 109 20 07/30/17 16:16 111 22 108/76 (78) 07/30/17 16:15 106 21 07/30/17 16:01 100 22 124/70 (80) 94 07/30/17 16:00 111 22 95 07/30/17 16:00 Room Air 07/30/17 15:46 108 24 129/81 (105) 90 07/30/17 15:45 112 20 92 07/30/17 15:31 109 19 135/76 (99) 92 07/30/17 15:30 99 22 94 07/30/17 15:16 101 22 139/81 (89) 07/30/17 15:15 109 19 07/30/17 15:15 36.4 95 23 139/81 (100) 92 Room Air 07/30/17 15:01 105 23 135/80 (90) 07/30/17 15:00 109 26 07/30/17 14:39 36.6 108 18 124/75 (91) 95 Room Air 07/30/17 14:03 98 18 127/80 (96) 94 Room Air 07/30/17 13:48 105 18 130/72 (91) 96 Room Air 07/30/17 12:45 36.5 95 18 108/74 (85) 98 Room Air 07/30/17 12:00 Room Air 07/30/17 12:00 37.0 116 22 122/65 (84) 93 Room Air Physical Exam General Appearance: WD/WN, no apparent distress Eyes: normal inspection, PERRL Respiratory/Chest: lungs clear Cardiovascular: + irregularly irregular Abdomen: normal bowel sounds, non tender, soft Extremities: non-tender Neurologic/Psych: alert, oriented x 3 Laboratory Results Last 24 Hours Test 07/30/17 14:35 07/30/17 20:24 07/31/17 06:15 Hemoglobin 13.0 g/dL 12.5 g/dL Hematocrit 38.5 % 37.6 % Total Creatine Kinase 56 U/L Creatine Kinase MB 4.1 ng/ml Creatine Kinase MB Ratio 7.3 Troponin I 0.112 ng/ml 0.105 ng/ml White Blood Count 14.82 K/uL Red Blood Count 4.17 M/uL Mean Corpuscular Volume 90.2 fL Mean Corpuscular Hemoglobin 30.0 pg Mean Corpuscular Hemoglobin Concent 33.2 g/dl Platelet Count 102 K/uL Mean Platelet Volume 10.7 fL RDW Standard Deviation 48.1 fL RDW Coefficient of Variation 14.8 % Nucleated RBC Absolute Count (auto) 0.27 K/uL Neutrophils % (Manual) 60.3 % Lymphocytes % (Manual) 8.6 % Variant Lymphocytes % (manual) 13.8 % Monocytes % (Manual) 3.4 % Eosinophils % (Manual) 0.9 % Basophils % (Manual) 1.7 % Metamyelocytes % 7.8 % Myelocytes % 2.6 % Blast Cells % 0.9 % Nucleated Red Blood Cells % 1.8 % Neutrophils # (Manual) 8.94 K/uL Total Absolute Neutrophils 8.94 K/uL Lymphocytes # (Manual) 1.27 K/uL Absolute Variant Lymphocytes 2.05 K/uL Total Absolute Lymphocytes 3.32 K/uL Monocytes # (Manual) 0.50 K/uL Eosinophils # (Manual) 0.13 K/uL Basophils # (Manual) 0.25 K/uL Metamyelocytes # 1.16 K/uL Myelocytes # 0.39 K/uL Blast Cells # 0.13 K/uL Red Blood Cell Morphology Unremarkable Prothrombin Time 11.9 SECONDS Prothromb Time International Ratio 1.1 Sodium Level 137 mmol/L Potassium Level 4.2 mmol/L Chloride Level 100 mmol/L Carbon Dioxide Level 22 mmol/L Anion Gap 15.0 mmol/L Blood Urea Nitrogen 22 mg/dl Creatinine 1.20 mg/dl Est Creatinine Clear Calc Drug Dose 41.8 ml/min Estimated GFR () 61.8 Estimated GFR (Non- 53.3 BUN/Creatinine Ratio 18.2 Random Glucose 78 mg/dl Calcium Level 9.1 mg/dl Assessment and Plan Patient is an 89 yo male found to have 6 gastric ulcers during EGD on 07/30/17. His H/H is stable and he has had no further episodes of melena. 1) Protonix 40 mg BID. 2) Carafate 1 gm four times daily prior to meals and at bedtime. 3) Repeat EGD in 8 weeks to assess for healing. 4) Supportive care and further monitoring of H/H per primary team. Addendum: After my evaluation of the patient, Dr. De La Garza received a call from Dr. 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 Will place a consult for oncology for further evaluation and recommendations. I did return to the patient's room to discuss these results with him. Agree with HIRO Sanhdu as above Abd: Soft, NT, ND, +BS Continue current therapy Await input from Oncology for further evaluation and recommendations.
[2017-07-31] MEDS: SUCRALFATE 1 GM/10 ML UDC PO SCH ×4 (09:10→19:57)
[2017-07-31] MEDS: PANTOprazole SOD 40 MG TAB PO SCH ×2 (09:10→19:56)
[2017-07-31] MEDS ORDERED: METOPROLOL SUCC 25MG EXT REL TAB PO ONE (11:48)
--- NOTE | 2017-07-31 12:01 | CARDIOLOGY PROGRESS NOTE ---
DATE: 07/31/2017 SUBJECTIVE: Mr. Alfredo is resting comfortably in bed without complaints of chest pain or dyspnea. He does note mild epigastric discomfort, which has been constant. OBJECTIVE: VITAL SIGNS: Blood pressure is 134/81 with an irregular pulse of 100. Respiratory rate is 18 and the patient is afebrile at 37.2 degree Celsius. Saturations 96% on room air. NECK: Supple with full carotid upstrokes. There are no carotid bruits. Jugular venous pressure is flat at 90 degrees. There is no thyromegaly. CARDIOVASCULAR: Reveals an irregular rhythm with distant heart sounds. No obvious murmurs. LUNGS: Clear without rales, rhonchi, or wheezes. ABDOMEN: Soft with some tenderness in the mid epigastrium. Bowel sounds are normal. EXTREMITIES: Reveal intact radial artery pulses bilaterally. There is no peripheral edema. DATA: CBC notes hemoglobin of 12.5, hematocrit 37.6, white count 14.8, and platelet count 102,000. Electrolytes note a sodium of 137, potassium 4.2, chloride 100, bicarbonate 22, BUN 22, creatinine 1.2, glucose 78. Troponin I level mildly elevated at 0.105. satellite project site monitor notes atrial fibrillation with a borderline ventricular response. IMPRESSION AND PLAN: 1. Peptic ulcer disease - identified at the time of esophagogastroduodenoscopy yesterday. Likely secondary to aspirin which has been discontinued indefinitely. 2. Persistent atrial fibrillation - tolerating amiodarone without difficulty. Would restart metoprolol at 12.5 mg b.i.d. as ventricular response is somewhat elevated. 3. Chronic systolic congestive heart failure - compensated. 4. Mild cardiomyopathy - ejection fraction of 40-45%. 5. Mild to moderate aortic insufficiency. 6. History of right popliteal thrombosis - February 2015 - Coumadin started at that time. 7. History of mantle cell lymphoma. 8. Prostate carcinoma.
[2017-07-31] MEDS: MoRPHine SULFATE 2 MG/ML CARP IV PRN ×3 (12:46→23:40)
--- NOTE | 2017-07-31 14:44 | Medical Student: [facility] ---
Med Student Progress Note Date of Service Jul 31, 2017. Subjective Pt evaluation today including: conversation w/ patient, conversation w/ family Patient stated that he fell asleep early last night at 7pm, but then woke an hour later and was up for some time due to a staff meeting near the outside of his room. He believes he slept well after falling back to sleep around 11pm. He told me he woke up confused and did not know where he was for a little while as he was waking up this morning. I had the opportunity to speak to his daughter towards the end of my visit. She said that this had happened after he had general anesthesia after surgery on his prostate. It is better at this incident likely do to the different anesthetic used for his EGD yesterday. At the time of my visit, he is oriented, but does have poor memory of knowing who came in the room to discuss his medical concerns with him today. He said he was having back pain today but the pain is much better as he took something for the pain within the hour of my visit. He has not had any bloody stools or other symptoms of concern today. He did not express presence of abdominal pain. Review of Systems Cardiac: No chest pain Abdomen: No pain, No nausea, No vomiting, No diarrhea, No constipation, No GI bleeding Objective Vital Signs Date Time Temp Pulse Resp B/P (MAP) Pulse Ox O2 Delivery O2 Flow Rate FiO2 07/31/17 12:00 Room Air 07/31/17 11:33 37.2 112 19 134/81 (98) 96 Room Air 07/31/17 08:03 36.3 107 19 125/72 (89) 95 Room Air 07/31/17 08:00 Room Air 07/31/17 04:00 Room Air 07/31/17 03:39 37.2 104 24 132/69 (90) 95 Room Air 07/31/17 00:00 Room Air 07/30/17 20:00 Room Air 07/30/17 19:26 36.8 119 23 121/65 (83) 94 Room Air 07/30/17 16:32 113 25 162/89 (105) 07/30/17 16:30 109 20 07/30/17 16:16 111 22 108/76 (78) 07/30/17 16:15 106 21 07/30/17 16:01 100 22 124/70 (80) 94 07/30/17 16:00 111 22 95 07/30/17 16:00 Room Air 07/30/17 15:46 108 24 129/81 (105) 90 07/30/17 15:45 112 20 92 07/30/17 15:31 109 19 135/76 (99) 92 07/30/17 15:30 99 22 94 07/30/17 15:16 101 22 139/81 (89) 07/30/17 15:15 109 19 07/30/17 15:15 36.4 95 23 139/81 (100) 92 Room Air 07/30/17 15:01 105 23 135/80 (90) 07/30/17 15:00 109 26 07/30/17 14:39 36.6 108 18 124/75 (91) 95 Room Air Physical Exam General Appearance: WD/WN, + mild distress Respiratory/Chest: chest non-tender, lungs clear, no respiratory distress, no accessory muscle use, + decreased breath sounds Cardiovascular: no edema, no gallop, no JVD, + irregularly irregular Laboratory Results Last 24 Hours Test 07/30/17 14:35 07/30/17 20:24 07/31/17 06:15 Hemoglobin 13.0 g/dL 12.5 g/dL Hematocrit 38.5 % 37.6 % Total Creatine Kinase 56 U/L Creatine Kinase MB 4.1 ng/ml Creatine Kinase MB Ratio 7.3 Troponin I 0.112 ng/ml 0.105 ng/ml White Blood Count 14.82 K/uL Red Blood Count 4.17 M/uL Mean Corpuscular Volume 90.2 fL Mean Corpuscular Hemoglobin 30.0 pg Mean Corpuscular Hemoglobin Concent 33.2 g/dl Platelet Count 102 K/uL Mean Platelet Volume 10.7 fL RDW Standard Deviation 48.1 fL RDW Coefficient of Variation 14.8 % Nucleated RBC Absolute Count (auto) 0.27 K/uL Neutrophils % (Manual) 60.3 % Lymphocytes % (Manual) 8.6 % Variant Lymphocytes % (manual) 13.8 % Monocytes % (Manual) 3.4 % Eosinophils % (Manual) 0.9 % Basophils % (Manual) 1.7 % Metamyelocytes % 7.8 % Myelocytes % 2.6 % Blast Cells % 0.9 % Nucleated Red Blood Cells % 1.8 % Neutrophils # (Manual) 8.94 K/uL Total Absolute Neutrophils 8.94 K/uL Lymphocytes # (Manual) 1.27 K/uL Absolute Variant Lymphocytes 2.05 K/uL Total Absolute Lymphocytes 3.32 K/uL Monocytes # (Manual) 0.50 K/uL Eosinophils # (Manual) 0.13 K/uL Basophils # (Manual) 0.25 K/uL Metamyelocytes # 1.16 K/uL Myelocytes # 0.39 K/uL Blast Cells # 0.13 K/uL Red Blood Cell Morphology Unremarkable Prothrombin Time 11.9 SECONDS Prothromb Time International Ratio 1.1 Sodium Level 137 mmol/L Potassium Level 4.2 mmol/L Chloride Level 100 mmol/L Carbon Dioxide Level 22 mmol/L Anion Gap 15.0 mmol/L Blood Urea Nitrogen 22 mg/dl Creatinine 1.20 mg/dl Est Creatinine Clear Calc Drug Dose 41.8 ml/min Estimated GFR () 61.8 Estimated GFR (Non- 53.3 BUN/Creatinine Ratio 18.2 Random Glucose 78 mg/dl Calcium Level 9.1 mg/dl Medications Current Inpatient Medications Medications (Trade) Dose Ordered Sig/Cj Route Start Time Stop Time Status Last Admin Dose Admin Potassium Chloride/Sodium Chloride 1,000 ml @ 50 mls/hr Q20H IV 07/29/17 22:30 08/28/17 20:26 07/30/17 18:09 50 MLS/HR Nitroglycerin (Nitrostat Tab) 0.4 mg UD PRN SL 07/29/17 20:30 08/28/17 20:29 Ondansetron HCl (Zofran Odt) 8 mg Q6H PRN PO 07/29/17 20:45 08/28/17 20:44 07/29/17 22:36 8 MG Morphine Sulfate (MoRPHine SULFATE INJ) 2 mg Q2H PRN IV 07/29/17 20:45 08/12/17 20:44 07/31/17 12:46 2 MG Pantoprazole Sodium (Protonix Tab) 40 mg BID PO 07/30/17 21:00 08/29/17 20:59 07/31/17 09:10 40 MG Sucralfate (Carafate Susp) 1 gm QID PO 07/30/17 17:00 08/29/17 16:59 07/31/17 12:47 1 GM Metoprolol Succinate (Toprol Xl Tab) 25 mg QAM PO 08/01/17 09:00 08/31/17 08:59 Assessment and Plan Assessment and Plan: A/P: Elevated INR -recived Vit. K injection for warfarin reversal -Discontinue warfarin for a short period of time to give ulcers time to heal before -a-a-l-i-o-o-u-i-n-g- -i-n- -a- -f-e-w- -w-e-e-k-s--/--p-d-p-t-h-s-.- reinitiating in approx. a week's time. 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 Heme/Onc consulted and will wait for their input. Elevated Troponin I and CK-MB -Monitor for worsening symptoms -Repeat labs until peak determined - Troponin did peak at 0.112 and declined. this mild elevation is considered consistent with demand ischemia -
--- NOTE | 2017-07-31 17:47 | Oncology Consultation ---
Oncology/Heme Consultation Date of Consultation: Jul 31, 2017. Attending Physician: Jaylan Billy D.O. Reason for Consultation: GI bleeding Mantle cell lymphoma Prostate cancer History of Present Illness Mr. Alfredo is an 89 year old man with a history of prostate cancer in the that is now biochemically recurrent with questionable metastatic disease. 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 He's been in remission for the last 2 years, though recent CTs revealed some unexplained small bowel wall thickening that was suspicious for relapse. He was admitted this stay for melenic stools and a modest drop in his hemoglobin. He was found to be on NSAIDs and to have a supratherapeutic INR that was corrected. An EGD revealed multiple gastric ulcers that were biopsied. Pathology from these biopsies unexpectedly revealed a high-grade non-Hodgkin lymphoma with a Ki-67 of 100% and an immunohistochemical profile not consistent with his prior mantle cell lymphoma. He has no other symptoms at this time, aside from the GI bleed. He had a recent sodium fluoride PET that showed diffuse marrow activity but no focal lesions. Past Medical/Surgical History Medical Problems: (1) Elevated INR Status: Acute (2) Epigastric abdominal pain Status: Acute (3) GI bleed Status: Acute (4) Precordial chest pain Status: Acute (5) Substernal chest pain Status: Acute (6) Substernal precordial chest pain Status: Acute (7) Superficial abrasion Status: Acute (8) Supratherapeutic INR Status: Acute Family History Diabetes mellitus FH: cancer FH: heart disease FH: lung disease Hypertension Social History Smoking Status: Never Smoker Smokeless Tobacco Use: No Alcohol Use: none Drug Use: none Marital Status: Housing Status: lives alone Occupation Status: unemployed Allergies Coded Allergies: Acetazolamide (Verified Allergy, Unknown, Diamox Eye Drops ? rxn, 07/23/17) Home Medications Scheduled Amiodarone Hcl (Cordarone), 200 MG PO BID Aspirin (Aspirin Ec), 81 MG PO QAM Bicalutamide (Casodex), 50 MG PO QAM Calcium Carbonate-Vitamin D (Oyster Shell Calcium/D3 500-400 mg-Unit), 2 TABS PO DAILY Gabapentin (Neurontin), 300 MG PO BID Leuprolide Acetate (Lupron Depot), 30 MG IM Q4MO Metoprolol Tartrate (Lopressor), 12.5 MG PO BID Multivitamin (Multivitamin), 1 TAB PO QAM Woodson-3 Fatty Acids (Fish Oil 1200 mg), 1,200 MG PO DAILY Ranitidine (Zantac), 150 MG PO BID Warfarin Sodium (Coumadin), 1 TAB PO [id number] Warfarin Sodium (Warfarin Sodium), 7.5 MG PO WK Scheduled PRN Furosemide (Furosemide), 20-40 MG PO DAILY PRN for "DEPENDS ON WT GAIN". Current Inpatient Medications Current Inpatient Medications Medications (Trade) Dose Ordered Sig/Cj Route Start Time Stop Time Status Last Admin Dose Admin Nitroglycerin (Nitrostat Tab) 0.4 mg UD PRN SL 07/29/17 20:30 08/28/17 20:29 Ondansetron HCl (Zofran Odt) 8 mg Q6H PRN PO 07/29/17 20:45 08/28/17 20:44 07/29/17 22:36 8 MG Morphine Sulfate (MoRPHine SULFATE INJ) 2 mg Q2H PRN IV 07/29/17 20:45 08/12/17 20:44 07/31/17 16:21 2 MG Pantoprazole Sodium (Protonix Tab) 40 mg BID PO 07/30/17 21:00 08/29/17 20:59 07/31/17 09:10 40 MG Sucralfate (Carafate Susp) 1 gm QID PO 07/30/17 17:00 08/29/17 16:59 07/31/17 16:17 1 GM Metoprolol Succinate (Toprol Xl Tab) 25 mg QAM PO 08/01/17 08:00 08/31/17 08:59 Review of Systems Constitutional: + weakness, + fatigue ENT: No unusual epistaxis Respiratory: No cough, No shortness of breath Cardiovascular: No chest pain Abdomen: No pain Musculoskeletal: No joint pain, No muscle pain Hematologic / Lymphatic: No abnormal bleeding/bruising, No swollen lymph nodes , No night sweats Physical Exam Date Time Temp Pulse Resp B/P (MAP) Pulse Ox O2 Delivery O2 Flow Rate FiO2 07/31/17 17:17 36.6 106 31 95 07/31/17 16:00 Room Air 07/31/17 15:18 36.6 106 31 130/69 (89) 95 Room Air 07/31/17 12:00 Room Air 07/31/17 11:33 37.2 112 19 134/81 (98) 96 Room Air 07/31/17 08:03 36.3 107 19 125/72 (89) 95 Room Air 07/31/17 08:00 Room Air 07/31/17 04:00 Room Air 07/31/17 03:39 37.2 104 24 132/69 (90) 95 Room Air 07/31/17 00:00 Room Air 07/30/17 20:00 Room Air 07/30/17 19:26 36.8 119 23 121/65 (83) 94 Room Air General Appearance: + pertinent finding (Chronically ill-appearing and weak) Eyes: sclerae normal (anicteric) ENT: pharynx normal (no bleeding) Respiratory/Chest: lungs clear Cardiovascular: regular rate, rhythm Abdomen/GI: non tender, soft, no organomegaly Extremities/Musculoskelatal: no pedal edema Neurologic/Psych: alert, oriented x 3 Skin: no rash Laboratory Results Last 24 Hours Test 07/30/17 20:24 07/31/17 06:15 Troponin I 0.105 ng/ml White Blood Count 14.82 K/uL Red Blood Count 4.17 M/uL Hemoglobin 12.5 g/dL Hematocrit 37.6 % Mean Corpuscular Volume 90.2 fL Mean Corpuscular Hemoglobin 30.0 pg Mean Corpuscular Hemoglobin Concent 33.2 g/dl Platelet Count 102 K/uL Mean Platelet Volume 10.7 fL RDW Standard Deviation 48.1 fL RDW Coefficient of Variation 14.8 % Nucleated RBC Absolute Count (auto) 0.27 K/uL Neutrophils % (Manual) 60.3 % Lymphocytes % (Manual) 8.6 % Variant Lymphocytes % (manual) 13.8 % Monocytes % (Manual) 3.4 % Eosinophils % (Manual) 0.9 % Basophils % (Manual) 1.7 % Metamyelocytes % 7.8 % Myelocytes % 2.6 % Blast Cells % 0.9 % Nucleated Red Blood Cells % 1.8 % Neutrophils # (Manual) 8.94 K/uL Total Absolute Neutrophils 8.94 K/uL Lymphocytes # (Manual) 1.27 K/uL Absolute Variant Lymphocytes 2.05 K/uL Total Absolute Lymphocytes 3.32 K/uL Monocytes # (Manual) 0.50 K/uL Eosinophils # (Manual) 0.13 K/uL Basophils # (Manual) 0.25 K/uL Metamyelocytes # 1.16 K/uL Myelocytes # 0.39 K/uL Blast Cells # 0.13 K/uL Red Blood Cell Morphology Unremarkable Prothrombin Time 11.9 SECONDS Prothromb Time International Ratio 1.1 Sodium Level 137 mmol/L Potassium Level 4.2 mmol/L Chloride Level 100 mmol/L Carbon Dioxide Level 22 mmol/L Anion Gap 15.0 mmol/L Blood Urea Nitrogen 22 mg/dl Creatinine 1.20 mg/dl Est Creatinine Clear Calc Drug Dose 41.8 ml/min Estimated GFR () 61.8 Estimated GFR (Non- 53.3 BUN/Creatinine Ratio 18.2 Random Glucose 78 mg/dl Calcium Level 9.1 mg/dl Assessment & Plan Mr. Alfredo is in a very challenging situation. 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 He also has diffuse marrow abnormality on imaging and a CBC consistent with myelophthisis, which would also fit with an aggressive recurrence of his disease. The treatment for such a lymphoma would involve multi-agent chemotherapy, but I worry he wouldn't tolerate this well given his age and other medical issues. He may need a bone marrow biopsy to better characterize what's going on, though I'm not sure he'll be up for it. I will discuss this with him tomorrow. We may also need to have a meeting with his family to discuss his goals of care, as he may be better served by hospice care.
--- NOTE | 2017-07-31 18:05 | Progress Note ---
Subjective Date of Service: Jul 31, 2017. Subjective Pt evaluation today including: conversation w/ patient, conversation w/ family , physical exam, chart review, lab review, review of studies, conversation w/ franchise field consultant, review of inpatient medication list d/w heme onc, d/w pathology and looked at slides with pathology guidance feeling better less stomach pain ate clears well feels he can try full liquids but afraid to move too fast on eating advancement. discussed pathology report - family expresses understanding, oncology aware and has discussed case. no further bleeding no other sx. Problem List Medical Problems: (1) Elevated INR Status: Acute (2) Epigastric abdominal pain Status: Acute (3) GI bleed Status: Acute (4) Precordial chest pain Status: Acute (5) Substernal chest pain Status: Acute (6) Substernal precordial chest pain Status: Acute (7) Superficial abrasion Status: Acute (8) Supratherapeutic INR Status: Acute Review of Systems all other ROS otherwise negative except for as above Objective Vital Signs Date Time Temp Pulse Resp B/P (MAP) Pulse Ox O2 Delivery O2 Flow Rate FiO2 07/31/17 17:45 36.0 105 24 129/72 (91) 92 Room Air 07/31/17 17:17 36.6 106 31 95 07/31/17 16:00 Room Air 07/31/17 15:18 36.6 106 31 130/69 (89) 95 Room Air 07/31/17 12:00 Room Air 07/31/17 11:33 37.2 112 19 134/81 (98) 96 Room Air 07/31/17 08:03 36.3 107 19 125/72 (89) 95 Room Air 07/31/17 08:00 Room Air 07/31/17 04:00 Room Air 07/31/17 03:39 37.2 104 24 132/69 (90) 95 Room Air 07/31/17 00:00 Room Air 07/30/17 20:00 Room Air 07/30/17 19:26 36.8 119 23 121/65 (83) 94 Room Air Physical Exam General Appearance: no apparent distress Eyes: EOMI ENT: hearing grossly normal Neck: trachea midline Respiratory/Chest: no respiratory distress, no accessory muscle use Extremities: normal range of motion Neurologic/Psychiatric: regional marketing director II-XII nml as tested, alert, normal mood/affect Skin: normal color, warm/dry Laboratory Results Last 24 Hours Test 07/30/17 20:24 07/31/17 06:15 Troponin I 0.105 ng/ml White Blood Count 14.82 K/uL Red Blood Count 4.17 M/uL Hemoglobin 12.5 g/dL Hematocrit 37.6 % Mean Corpuscular Volume 90.2 fL Mean Corpuscular Hemoglobin 30.0 pg Mean Corpuscular Hemoglobin Concent 33.2 g/dl Platelet Count 102 K/uL Mean Platelet Volume 10.7 fL RDW Standard Deviation 48.1 fL RDW Coefficient of Variation 14.8 % Nucleated RBC Absolute Count (auto) 0.27 K/uL Neutrophils % (Manual) 60.3 % Lymphocytes % (Manual) 8.6 % Variant Lymphocytes % (manual) 13.8 % Monocytes % (Manual) 3.4 % Eosinophils % (Manual) 0.9 % Basophils % (Manual) 1.7 % Metamyelocytes % 7.8 % Myelocytes % 2.6 % Blast Cells % 0.9 % Nucleated Red Blood Cells % 1.8 % Neutrophils # (Manual) 8.94 K/uL Total Absolute Neutrophils 8.94 K/uL Lymphocytes # (Manual) 1.27 K/uL Absolute Variant Lymphocytes 2.05 K/uL Total Absolute Lymphocytes 3.32 K/uL Monocytes # (Manual) 0.50 K/uL Eosinophils # (Manual) 0.13 K/uL Basophils # (Manual) 0.25 K/uL Metamyelocytes # 1.16 K/uL Myelocytes # 0.39 K/uL Blast Cells # 0.13 K/uL Red Blood Cell Morphology Unremarkable Prothrombin Time 11.9 SECONDS Prothromb Time International Ratio 1.1 Sodium Level 137 mmol/L Potassium Level 4.2 mmol/L Chloride Level 100 mmol/L Carbon Dioxide Level 22 mmol/L Anion Gap 15.0 mmol/L Blood Urea Nitrogen 22 mg/dl Creatinine 1.20 mg/dl Est Creatinine Clear Calc Drug Dose 41.8 ml/min Estimated GFR () 61.8 Estimated GFR (Non- 53.3 BUN/Creatinine Ratio 18.2 Random Glucose 78 mg/dl Calcium Level 9.1 mg/dl Assessment and Plan upper GI bleeding -due to stomach ulcers and coumadin coagulopathy -- underlying lymphoma also almost certainly playing a role, although appears that aspirin and coumadin still were significant factors PUD -stomach ulcers likely asa induced but superimposed on lymphoma -pt notes no hx of CAD/cerebrovascular disease - hold indefinitely -continue protonix coumadin coagulopathy -almost certainly the final reason for the bleeding -reversed lymphoma -appears to have occurence on stomach, prior adenopathy from previous CT ? related -oncology following, awaiting more data to discuss treatment options -peripheral blood also showing findings concerning afib, prior DVT -w ulcers and bleeding above - continue off coumadin for now, but oil heaterman risk will favor resuming -- follow Hgb and clinical status closely as outpt and work to resume coumadin as soon as is safe -although this will be "work in progress" given not only the stomach ulcers but the lymphoma peripheral neuropathy -gabapentin metastatic prostate cancer -outpt management DVT proph -ambulation as best as possible - pharmacologic obviously contraindicated due to PUD/bleeding
[2017-08-01] MEDS: MoRPHine SULFATE 2 MG/ML CARP IV PRN ×2 (02:42→19:02)
[2017-08-01 06:08] LABS: HEMATOCRIT 40.9 % (42-52); HEMOGLOBIN 13.6 g/dL (14.0-18.0); MEAN CELL VOLUME 90.7 fL (80-100); MEAN CORPUSCULAR HEMOGLOBIN 30.2 pg (25-34); MEAN CORPUSCULAR HGB CONC 33.3 g/dl (32-36); MEAN PLATELET VOLUME 10.2 fL (7.4-10.4); NUCLEATED RED BLOOD CELL ABS 0.49 K/uL (0-0); PLATELET COUNT 101 K/uL (130-400); RED CELL DISTRIBUTION WIDTH CV 15.2 % (11.5-14.5); RED CELL DISTRIBUTION WIDTH SD 50.4 fL (36.4-46.3); WHITE BLOOD COUNT 22.72 K/uL (4.8-10.8)
[2017-08-01 06:11] LABS: INR 1.2 (0.9-1.1)
[2017-08-01 06:14] LABS: CALCIUM 9.5 mg/dl (8.5-10.1); CREATININE 1.36 mg/dl (0.60-1.40); POTASSIUM 4.5 mmol/L (3.5-5.1)
[2017-08-01 07:50] VITALS: BP 144/79; PULSE 108; TEMP 36.5; O2SAT 95
[2017-08-01] MEDS: METOPROLOL SUCC 25MG EXT REL TAB PO SCH (08:13)
[2017-08-01] MEDS: SUCRALFATE 1 GM/10 ML UDC PO SCH ×4 (08:14→20:35)
[2017-08-01] MEDS: PANTOprazole SOD 40 MG TAB PO SCH ×2 (08:14→20:35)
--- NOTE | 2017-08-01 09:33 | CARDIOLOGY PROGRESS NOTE ---
DATE: 08/01/2017 SUBJECTIVE: Mr. Alfredo is resting comfortably in bed without complaints of chest pain or dyspnea. OBJECTIVE: VITAL SIGNS: Blood pressure 144/79 with an irregular pulse of 100. Respiratory rate is 20. The patient is afebrile at 36.5 degrees Celsius. Saturations 95% on room air. NECK: Supple with full carotid upstrokes. No obvious bruits. Jugular venous pressure is flat at 90 degrees. There is no thyromegaly. CARDIOVASCULAR: Reveals an irregularly irregular rhythm with distant heart sounds. No obvious murmurs. LUNGS: Clear without rales, rhonchi, or wheeze. ABDOMEN: Soft without bruits. EXTREMITIES: Reveal intact radial artery pulses bilaterally. There is no peripheral edema. LABORATORY DATA: CBC notes hemoglobin of 13.6, hematocrit 40.9, white count 22.7, platelet count 101,000. Electrolytes note a sodium of 139, potassium 4.5, chloride 103, bicarbonate 21, BUN 22, creatinine 1.3, glucose 96. INR is 1.2. IMPRESSION AND PLAN: 1. Peptic ulcer disease -- per GI. 2. Persistent atrial fibrillation -- tolerating amiodarone and low dose metoprolol tartrate. 3. Chronic systolic congestive heart failure -- compensated at this time. 4. 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 5. Mild to moderate aortic insufficiency. 6. 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 7. History of mantle cell lymphoma. 8. Prostate carcinoma.
[2017-08-01 11:10] VITALS: BP 132/75; PULSE 106; TEMP 36.7; O2SAT 96
[2017-08-01 11:50] VITALS: BP 128/74; PULSE 102; O2SAT 96
--- NOTE | 2017-08-01 13:04 | Medical Student: [facility] ---
Med Student Progress Note Date of Service Aug 01, 2017. Subjective Patient was accompanied by daughter in room. I asked how he was doing and the events over the last 18 hours. He wasn't able to give me the details of what he ate for dinner. He wasn't sure how he slept or if there were any issues going to bed, however, he thought it was better than yesterday. His daughter is in the room and has also noticed his confusion, and lack of goal-oriented thinking. He is quite lethargic and sedated appearing during my visit. The patient is not sure if the oncologist had visited today, he just doesn't remember. He mentions that he would prefer to continue liquids for dinner tonight rather than switch to a full diet. When asked about pain, he notes a concern for back pain, which is better after taking medication for it recently. He did not admit to abdominal pain. He denies other symptoms like dyspnea or continued bleeding or changes to stool or bladder function. Objective Vital Signs Date Time Temp Pulse Resp B/P (MAP) Pulse Ox O2 Delivery O2 Flow Rate FiO2 08/01/17 11:10 36.7 106 16 132/75 (94) 96 Room Air 08/01/17 08:00 Room Air 08/01/17 07:50 36.5 108 20 144/79 (100) 95 Room Air 08/01/17 00:30 Room Air 07/31/17 23:33 37.0 103 20 134/83 (100) 95 Room Air 07/31/17 19:19 36.9 105 20 125/72 (89) 92 Room Air 07/31/17 17:45 36.0 105 24 129/72 (91) 92 Room Air 07/31/17 17:30 95 Room Air 07/31/17 17:17 36.6 106 31 95 07/31/17 16:00 Room Air 07/31/17 15:18 36.6 106 31 130/69 (89) 95 Room Air Physical Exam General Appearance: WD/WN, no apparent distress ENT: hearing grossly normal Neck: no JVD Respiratory/Chest: chest non-tender, no respiratory distress, no accessory muscle use Cardiovascular: no edema, no JVD, + irregularly irregular Laboratory Results Last 24 Hours Test 08/01/17 05:32 White Blood Count 22.72 K/uL Red Blood Count 4.51 M/uL Hemoglobin 13.6 g/dL Hematocrit 40.9 % Mean Corpuscular Volume 90.7 fL Mean Corpuscular Hemoglobin 30.2 pg Mean Corpuscular Hemoglobin Concent 33.3 g/dl Platelet Count 101 K/uL Mean Platelet Volume 10.2 fL RDW Standard Deviation 50.4 fL RDW Coefficient of Variation 15.2 % Nucleated RBC Absolute Count (auto) 0.49 K/uL Neutrophils % (Manual) 70.1 % Lymphocytes % (Manual) 20.2 % Monocytes % (Manual) 4.4 % Metamyelocytes % 0.9 % Myelocytes % 3.5 % Blast Cells % 0.9 % Nucleated Red Blood Cells % 2.2 % Neutrophils # (Manual) 15.93 K/uL Total Absolute Neutrophils 15.93 K/uL Lymphocytes # (Manual) 4.59 K/uL Total Absolute Lymphocytes 4.59 K/uL Monocytes # (Manual) 1.00 K/uL Metamyelocytes # 0.20 K/uL Myelocytes # 0.80 K/uL Blast Cells # 0.20 K/uL Prothrombin Time 12.9 SECONDS Prothromb Time International Ratio 1.2 Sodium Level 139 mmol/L Potassium Level 4.5 mmol/L Chloride Level 103 mmol/L Carbon Dioxide Level 21 mmol/L Anion Gap 15.0 mmol/L Blood Urea Nitrogen 22 mg/dl Creatinine 1.36 mg/dl Est Creatinine Clear Calc Drug Dose 36.8 ml/min Estimated GFR () 53.1 Estimated GFR (Non- 45.8 BUN/Creatinine Ratio 16.2 Random Glucose 96 mg/dl Calcium Level 9.5 mg/dl Medications Current Inpatient Medications Medications (Trade) Dose Ordered Sig/Cj Route Start Time Stop Time Status Last Admin Dose Admin Nitroglycerin (Nitrostat Tab) 0.4 mg UD PRN SL 07/29/17 20:30 08/28/17 20:29 Ondansetron HCl (Zofran Odt) 8 mg Q6H PRN PO 07/29/17 20:45 08/28/17 20:44 07/29/17 22:36 8 MG Morphine Sulfate (MoRPHine SULFATE INJ) 2 mg Q2H PRN IV 07/29/17 20:45 08/12/17 20:44 08/01/17 02:42 2 MG Pantoprazole Sodium (Protonix Tab) 40 mg BID PO 07/30/17 21:00 08/29/17 20:59 08/01/17 08:14 40 MG Sucralfate (Carafate Susp) 1 gm QID PO 07/30/17 17:00 08/29/17 16:59 08/01/17 12:15 1 GM Metoprolol Succinate (Toprol Xl Tab) 25 mg QAM PO 08/01/17 08:00 08/31/17 08:59 08/01/17 08:13 25 MG Assessment and Plan Assessment and Plan: A/P: Elevated INR -recived Vit. K injection for warfarin reversal -Discontinue warfarin for a short period of time to give ulcers time to heal before -u-w-e-h-r-r-u-i-n-g- -i-n- -a- -f-e-w- -w-e-e-k-s--/--y-s-f-t-h-s-.- reinitiating in approx. a week's time. Stomach ulcers -EGD performed 2 days ago showed 6 gastric ulcers -Continue PPI -Follow up with Hbg/Hct before discharge and again 1 week after discharge from hospital -Was taking an 81 mg Aspirin, this is to be discontinued for the time being -Can start full liquid diet today, -a-n-d- -i-f- -a-g-j-r-q-x-t-e-d--,- -f-u-l-l- -d-i-e-t- -t-z-l-o-r-r-o-w- wants to continue liquid diet for the time being -Pathology of a biopsy from an ulcer unexpectedly showed high-grad non-Hodgkin lymphoma. Heme/Onc consulted and will wait for their input. Elevated Troponin I and CK-MB -Monitor for worsening symptoms -Repeat labs until peak determined - Troponin did peak at 0.112 and declined. this mild elevation is considered consistent with demand ischemia
[2017-08-01 15:10] VITALS: BP 150/84; PULSE 104; TEMP 36.4; O2SAT 93
--- NOTE | 2017-08-01 15:29 | Progress Note ---
Subjective Date of Service: Aug 01, 2017. Subjective Pt evaluation today including: conversation w/ patient, physical exam, chart review, lab review, conversation w/ optimization consultant feeling ok -- about the same. notes abdominal pain about the same not worse. did well w full liquids and thinks he can do OK w regular food no cp no sob d/w dr hinkle - is planning on having family meeting to discuss situation w pt and family after having gotten to review pathology further Problem List Medical Problems: (1) Elevated INR Status: Acute (2) Epigastric abdominal pain Status: Acute (3) GI bleed Status: Acute (4) Precordial chest pain Status: Acute (5) Substernal chest pain Status: Acute (6) Substernal precordial chest pain Status: Acute (7) Superficial abrasion Status: Acute (8) Supratherapeutic INR Status: Acute Review of Systems all other ROS otherwise negative except for as above Objective Vital Signs Date Time Temp Pulse Resp B/P (MAP) Pulse Ox O2 Delivery O2 Flow Rate FiO2 08/01/17 15:10 36.4 104 20 150/84 (106) 93 Room Air 08/01/17 11:10 36.7 106 16 132/75 (94) 96 Room Air 08/01/17 08:00 Room Air 08/01/17 07:50 36.5 108 20 144/79 (100) 95 Room Air 08/01/17 00:30 Room Air 07/31/17 23:33 37.0 103 20 134/83 (100) 95 Room Air 07/31/17 19:19 36.9 105 20 125/72 (89) 92 Room Air 07/31/17 17:45 36.0 105 24 129/72 (91) 92 Room Air 07/31/17 17:30 95 Room Air 07/31/17 17:17 36.6 106 31 95 07/31/17 16:00 Room Air Physical Exam General Appearance: no apparent distress Eyes: EOMI ENT: hearing grossly normal Neck: trachea midline Respiratory/Chest: lungs clear, normal breath sounds, no respiratory distress, no accessory muscle use Cardiovascular: + irregularly irregular (rate ~100) Abdomen: soft, + tenderness (mild epigastric tednerness no guarding/rebound/ rigidity) Neurologic/Psychiatric: adobe ball mixer II-XII nml as tested, alert Skin: normal color, warm/dry Laboratory Results Last 24 Hours Test 08/01/17 05:32 White Blood Count 22.72 K/uL Red Blood Count 4.51 M/uL Hemoglobin 13.6 g/dL Hematocrit 40.9 % Mean Corpuscular Volume 90.7 fL Mean Corpuscular Hemoglobin 30.2 pg Mean Corpuscular Hemoglobin Concent 33.3 g/dl Platelet Count 101 K/uL Mean Platelet Volume 10.2 fL RDW Standard Deviation 50.4 fL RDW Coefficient of Variation 15.2 % Nucleated RBC Absolute Count (auto) 0.49 K/uL Neutrophils % (Manual) 70.1 % Lymphocytes % (Manual) 20.2 % Monocytes % (Manual) 4.4 % Metamyelocytes % 0.9 % Myelocytes % 3.5 % Blast Cells % 0.9 % Nucleated Red Blood Cells % 2.2 % Neutrophils # (Manual) 15.93 K/uL Total Absolute Neutrophils 15.93 K/uL Lymphocytes # (Manual) 4.59 K/uL Total Absolute Lymphocytes 4.59 K/uL Monocytes # (Manual) 1.00 K/uL Metamyelocytes # 0.20 K/uL Myelocytes # 0.80 K/uL Blast Cells # 0.20 K/uL Prothrombin Time 12.9 SECONDS Prothromb Time International Ratio 1.2 Sodium Level 139 mmol/L Potassium Level 4.5 mmol/L Chloride Level 103 mmol/L Carbon Dioxide Level 21 mmol/L Anion Gap 15.0 mmol/L Blood Urea Nitrogen 22 mg/dl Creatinine 1.36 mg/dl Est Creatinine Clear Calc Drug Dose 36.8 ml/min Estimated GFR () 53.1 Estimated GFR (Non- 45.8 BUN/Creatinine Ratio 16.2 Random Glucose 96 mg/dl Calcium Level 9.5 mg/dl Assessment and Plan upper GI bleeding -due to stomach ulcers and coumadin coagulopathy -- underlying lymphoma also almost certainly playing a role, although appears that aspirin and coumadin still were significant factors -bleeding appears to have resolved. 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 related -oncology following, is to discuss with family in depth later today -peripheral blood also showing findings concerning afib, prior DVT -w ulcers and bleeding above - continue off coumadin for now, but mcfp risk will favor resuming -- follow Hgb and clinical status closely as outpt and work to resume coumadin as soon as is safe -although this will be "work in progress" given not only the stomach ulcers but the lymphoma -rate control upper end of acceptable, pharmacy noted that amiodarone was actually still on hold - will resume, anticipate better rate control with this and appreciate pharmacy oversight peripheral neuropathy -gabapentin metastatic prostate cancer -outpt management DVT proph -ambulation as best as possible - pharmacologic obviously contraindicated due to PUD/bleeding
[2017-08-01 19:52] VITALS: BP 122/71; PULSE 114; TEMP 36.8; O2SAT 95
[2017-08-01] MEDS: GABAPENTIN 300 MG CAP PO SCH (20:38)
[2017-08-01] MEDS: AMIODARONE 200 MG TAB PO SCH (20:39)
[2017-08-02 07:48] VITALS: BP 144/81; PULSE 101; TEMP 36.4; O2SAT 92
[2017-08-02] MEDS: GABAPENTIN 300 MG CAP PO SCH (08:10)
[2017-08-02] MEDS: METOPROLOL SUCC 25MG EXT REL TAB PO SCH (08:10)
[2017-08-02] MEDS: PANTOprazole SOD 40 MG TAB PO SCH (08:10)
[2017-08-02] MEDS: AMIODARONE 200 MG TAB PO SCH (08:10)
[2017-08-02] MEDS: SUCRALFATE 1 GM/10 ML UDC PO SCH ×2 (08:11→12:11)
--- NOTE | 2017-08-02 08:43 | Hematology/Oncology Prog Note ---
Hematology/Onc Progress Note Date of Service Aug 01, 2017. Diagnoses Recurrent, aggressive NHL Metastatic prostate cancer GI bleed Medications Medications Administered Medications (Trade) Dose Ordered Sig/Cj Route Start Time Stop Time Status Last Admin Dose Admin Phytonadione 10 mg/Sodium Chloride 51 ml @ 102 mls/hr ONE ONCE IV 07/29/17 19:15 07/29/17 19:44 DC 07/29/17 19:47 102 MLS/HR Pantoprazole Sodium 80 mg/ Dextrose 120 ml @ 400 mls/hr NOW IV 07/29/17 19:15 07/29/17 21:54 DC 07/29/17 20:22 400 MLS/HR Potassium Chloride/Sodium Chloride 1,000 ml @ 50 mls/hr Q20H IV 07/29/17 22:30 07/31/17 15:20 DC 07/30/17 18:09 50 MLS/HR Ondansetron HCl (Zofran Odt) 8 mg Q6H PRN PO 07/29/17 20:45 08/28/17 20:44 07/29/17 22:36 8 MG Morphine Sulfate (MoRPHine SULFATE INJ) 2 mg Q2H PRN IV 07/29/17 20:45 08/12/17 20:44 08/01/17 19:02 2 MG Pantoprazole Sodium 40 mg/ Dextrose 100 ml @ 20 mls/hr Q5H IV 07/29/17 21:00 07/30/17 13:53 DC 07/30/17 07:08 20 MLS/HR Pantoprazole Sodium (Protonix Tab) 40 mg BID PO 07/30/17 21:00 08/29/17 20:59 08/02/17 08:10 40 MG Sucralfate (Carafate Susp) 1 gm QID PO 07/30/17 17:00 08/29/17 16:59 08/02/17 08:11 1 GM Metoprolol Succinate (Toprol Xl Tab) 25 mg QAM PO 08/01/17 08:00 08/31/17 08:59 08/02/17 08:10 25 MG Metoprolol Succinate (Toprol Xl Tab) 25 mg 1148 ONCE PO 07/31/17 11:48 07/31/17 11:55 DC 07/31/17 12:46 25 MG Amiodarone HCl (Cordarone Tab) 200 mg BID PO 08/01/17 20:00 08/31/17 19:59 08/02/17 08:10 200 MG Gabapentin (Neurontin Cap) 300 mg BID PO 08/01/17 20:00 08/31/17 19:59 08/02/17 08:10 300 MG Subjective Mr. Alfredo was seated comfortably in bed with his two children nearby. He denied any pain but did describe feeling tired and generally weak. Review of Systems: Constitutional: No fever ENT: No unusual epistaxis Respiratory: No cough, No shortness of breath Cardiovascular: No chest pain Abdomen: No pain, No nausea, No vomiting, No GI bleeding Musculoskeletal: No joint pain, No muscle pain Male : No hematuria Heme: No swollen lymph nodes, No night sweats Vital Signs Vital Signs Past 12 Hours Date Time Temp Pulse Resp B/P (MAP) Pulse Ox O2 Delivery O2 Flow Rate FiO2 08/02/17 07:48 36.4 101 20 144/81 (102) 92 Room Air 08/02/17 00:00 Room Air Physical Exam Constitutional: General Apperance: too thin Level of Distress: NAD, chronically ill Psychiatric: Mental Status: active & alert Orientation: oriented except where noted Lungs: Auscuitation: CTA except as noted Cardiovascular: Heart Auscultation: RRR Abdomen: Inspection & Palpation: soft, no tenderness, guarding & rebound Extremities: no edema Laboratory 07/30/17 14:35 07/31/17 06:15 Red Blood Count 4.17, Mean Corpuscular Volume 90.2, Mean Corpuscular Hemoglobin 30.0, Mean Corpuscular Hemoglobin Concent 33.2, Mean Platelet Volume 10.7 08/01/17 05:32 Red Blood Count 4.51, Mean Corpuscular Volume 90.7, Mean Corpuscular Hemoglobin 30.2, Mean Corpuscular Hemoglobin Concent 33.3, Mean Platelet Volume 10.2 07/31/17 06:15 08/01/17 05:32 Test 07/30/17 14:35 07/30/17 20:24 07/31/17 06:15 08/01/17 05:32 Total Creatine Kinase 56 U/L (39-308) Creatine Kinase MB 4.1 ng/ml (0.5-3.6) Creatine Kinase MB Ratio 7.3 (0-3.0) Troponin I 0.112 ng/ml (0-0.045) 0.105 ng/ml (0-0.045) White Blood Count 14.82 K/uL (4.8-10.8) 22.72 K/uL (4.8-10.8) Red Blood Count 4.17 M/uL (4.7-6.1) 4.51 M/uL (4.7-6.1) Hemoglobin 12.5 g/dL (14.0-18.0) 13.6 g/dL (14.0-18.0) Hematocrit 37.6 % (42-52) 40.9 % (42-52) Mean Corpuscular Volume 90.2 fL (80-100) 90.7 fL (80-100) Mean Corpuscular Hemoglobin 30.0 pg (25-34) 30.2 pg (25-34) Mean Corpuscular Hemoglobin Concent 33.2 g/dl (32-36) 33.3 g/dl (32-36) Platelet Count 102 K/uL (130-400) 101 K/uL (130-400) Mean Platelet Volume 10.7 fL (7.4-10.4) 10.2 fL (7.4-10.4) RDW Standard Deviation 48.1 fL (36.4-46.3) 50.4 fL (36.4-46.3) RDW Coefficient of Variation 14.8 % (11.5-14.5) 15.2 % (11.5-14.5) Nucleated RBC Absolute Count (auto) 0.27 K/uL (0-0) 0.49 K/uL (0-0) Neutrophils % (Manual) 60.3 % 70.1 % Lymphocytes % (Manual) 8.6 % 20.2 % Variant Lymphocytes % (manual) 13.8 % Monocytes % (Manual) 3.4 % 4.4 % Eosinophils % (Manual) 0.9 % Basophils % (Manual) 1.7 % (0-2) Metamyelocytes % 7.8 % 0.9 % Myelocytes % 2.6 % 3.5 % Blast Cells % 0.9 % 0.9 % Nucleated Red Blood Cells % 1.8 % 2.2 % Neutrophils # (Manual) 8.94 K/uL (1.4-6.5) 15.93 K/uL (1.4-6.5) Total Absolute Neutrophils 8.94 K/uL (1.4-6.5) 15.93 K/uL (1.4-6.5) Lymphocytes # (Manual) 1.27 K/uL (1.2-3.4) 4.59 K/uL (1.2-3.4) Absolute Variant Lymphocytes 2.05 K/uL Total Absolute Lymphocytes 3.32 K/uL (1.2-3.4) 4.59 K/uL (1.2-3.4) Monocytes # (Manual) 0.50 K/uL (0.11-0.59) 1.00 K/uL (0.11-0.59) Eosinophils # (Manual) 0.13 K/uL (0-0.5) Basophils # (Manual) 0.25 K/uL (0-0.2) Metamyelocytes # 1.16 K/uL (0-0) 0.20 K/uL (0-0) Myelocytes # 0.39 K/uL (0-0) 0.80 K/uL (0-0) Blast Cells # 0.13 K/uL (0-0) 0.20 K/uL (0-0) Red Blood Cell Morphology Unremarkable Prothrombin Time 11.9 SECONDS (9.0-12.0) 12.9 SECONDS (9.0-12.0) Prothromb Time International Ratio 1.1 (0.9-1.1) 1.2 (0.9-1.1) Anion Gap 15.0 mmol/L (3-11) 15.0 mmol/L (3-11) Est Creatinine Clear Calc Drug Dose 41.8 ml/min 36.8 ml/min Estimated GFR () 61.8 53.1 Estimated GFR (Non- 53.3 45.8 BUN/Creatinine Ratio 18.2 (10-20) 16.2 (10-20) Calcium Level 9.1 mg/dl (8.5-10.1) 9.5 mg/dl (8.5-10.1) Assessment & Plan I had a long conversation with Mr. Alfredo and his children regarding goals of care. The biopsies from an ulcer in his stomach are consistent with a very aggressive non-Hodgkin lymphoma. The exact identity of the lymphoma isn't clear , but to a certain extent that is less important. The lymphoma is highly proliferative and will require highly toxic, multi-agent chemotherapy to treat. Given his age and overall condition, I do not think he would tolerate such therapy. Furthermore, he has what appears to be multiple foci of bowel wall involvement, which puts him at risk of bowel rupture with treatment. Overall, I think the next best step for him is hospice care. We discussed the concept of hospice and the services they provide. He lives at the [facility] and they could easily transition him into a hospice setting. We discussed that important goals of hospice include no longer pursuing therapies intended primarily to extend life, such as chemotherapy, and remaining at home and out of the hospital. He expressed understanding of the implications of this transition and agreed to hospice care. His family was in agreement as well. I asked Dr. Billy to consult palliative care to get the process started. I would be happy to be his physician of record, though I suspect the [facility] may prefer one of their internal physicians instead. I reassured Mr. Alfredo that I will always be a part of his care and would be happy to speak with him at any time, though my role in his care will now be somewhat diminished. He seemed satisfied with our conversation and at peace with his decision.
--- NOTE | 2017-08-02 08:59 | Medical Student: [facility] ---
Med Student Progress Note Date of Service Aug 02, 2017. Subjective Pt evaluation today including: conversation w/ patient, physical exam Pain: complains of back pain PO Intake: yes Patient was sitting eating breakfast in the room when I entered. He becomes easily confused with questioning. He often must stop talking and close his eyes and think for some time to answer simple questions. He believes he slept through the night and has an appetite for breakfast. Due to his confusion, I assessed his orientation to time and place. He did know he was in the hospital and the name of our hospital. He was hesitant on the date, he thought it was about the , or week. He did not want to tell me the year, saying that he doesn't know. When I asked him to give his best guess he said 2017. Objective Vital Signs Date Time Temp Pulse Resp B/P (MAP) Pulse Ox O2 Delivery O2 Flow Rate FiO2 08/02/17 07:48 36.4 101 20 144/81 (102) 92 Room Air 08/02/17 00:00 Room Air 08/01/17 19:52 36.8 114 20 122/71 (88) 95 Room Air 08/01/17 16:00 Room Air 08/01/17 15:10 36.4 104 20 150/84 (106) 93 Room Air 08/01/17 11:50 102 96 08/01/17 11:10 36.7 106 16 132/75 (94) 96 Room Air Physical Exam General Appearance: WD/WN, + mild distress Respiratory/Chest: chest non-tender, lungs clear, normal breath sounds, no respiratory distress, no accessory muscle use Cardiovascular: regular rate, rhythm, no edema, no gallop, no JVD, no murmur Neurologic/Psychiatric: alert, oriented x 3 (oriented but some memory confusion ) Medications Current Inpatient Medications Medications (Trade) Dose Ordered Sig/Cj Route Start Time Stop Time Status Last Admin Dose Admin Nitroglycerin (Nitrostat Tab) 0.4 mg UD PRN SL 07/29/17 20:30 08/28/17 20:29 Ondansetron HCl (Zofran Odt) 8 mg Q6H PRN PO 07/29/17 20:45 08/28/17 20:44 07/29/17 22:36 8 MG Morphine Sulfate (MoRPHine SULFATE INJ) 2 mg Q2H PRN IV 07/29/17 20:45 08/12/17 20:44 08/01/17 19:02 2 MG Pantoprazole Sodium (Protonix Tab) 40 mg BID PO 07/30/17 21:00 08/29/17 20:59 08/02/17 08:10 40 MG Sucralfate (Carafate Susp) 1 gm QID PO 07/30/17 17:00 08/29/17 16:59 08/02/17 08:11 1 GM Metoprolol Succinate (Toprol Xl Tab) 25 mg QAM PO 08/01/17 08:00 08/31/17 08:59 08/02/17 08:10 25 MG Amiodarone HCl (Cordarone Tab) 200 mg BID PO 08/01/17 20:00 08/31/17 19:59 08/02/17 08:10 200 MG Gabapentin (Neurontin Cap) 300 mg BID PO 08/01/17 20:00 08/31/17 19:59 08/02/17 08:10 300 MG Assessment and Plan Assessment and Plan: A/P: Elevated INR -recived Vit. K injection for warfarin reversal -Discontinue warfarin for a short period of time to give ulcers time to heal before -s-n-y-k-y-v-u-i-n-g- -i-n- -a- -f-e-w- -w-e-e-k-s--/--u-i-q-t-h-s-.- reinitiating in approx. a week's time. Stomach ulcers -EGD performed 2 days ago showed 6 gastric ulcers -Continue PPI -Follow up with Hbg/Hct before discharge and again 1 week after discharge from hospital -Was taking an 81 mg Aspirin, this is to be discontinued for the time being --C-a-n- -s-t-a-r-t- -f-u-l-l- -d-v-e-u-i-d- -d-i-e-t- -t-o-d-a-y-, -a-n-d- -i-f- -i-t-x-o-s-n-t-e-d--,- -f-u-l-l- -d-i-e-t- -j-s-t-o-r-r-o-w- -w-a-n-t-s- -t-o- -e-d-u-t-i-n-u-e- -z-r-m-u-i-d- -d-i-e-t- -f-o-r- -t-h-e- -t-i-m-e- -b-e-i-n-g- On full PO diet -Pathology of a biopsy from an ulcer unexpectedly showed high-grad non-Hodgkin lymphoma. Heme/Onc consulted and will wait for their input. Elevated Troponin I and CK-MB -Monitor for worsening symptoms -Repeat labs until peak determined - Troponin did peak at 0.112 and declined. this mild elevation is considered consistent with demand ischemia
[2017-08-02 11:21] VITALS: BP 133/66; PULSE 100; TEMP 36.8; O2SAT 94
[2017-08-02] MEDS ORDERED: CRFUDL PO (13:28)
[2017-08-02] MEDS ORDERED: PRT40 PO (13:28)
--- NOTE | 2017-08-02 13:31 | Discharge Instructions ---
Discharge Instructions Date of Service Aug 02, 2017. Admission Reason for Admission: Acute Blood Loss Anemia, Upper Gi Bleed Discharge Discharge Diagnosis / Problem: stomach ulcers related to aspirin and gastric lymphoma Discharge Goals Goal(s): Diagnostic testing, Therapeutic intervention Activity Recommendations Activity Level: Assistance Required . Additional Information Patient informed of condition: Yes Advance Directives: Yes DNR: No (although i anticipate he will likely choose to change his status in the near future) Level of Care: Skilled Communicable Disease: No Prognosis: Deteriorating (due to malignancy) Instructions / Follow-Up Instructions / Follow-Up GI bleeding -presented with GI bleeding from gastric ulcers - fortunately was hemodynamically stable throughout the entirety of his stay -EGD showing multiple ulcers no longer bleeding -pathology then showed high grade lymphoma -situation most consistent with mixed cause of ulceration - asa + lymphoma - hence asa on indefinite hold -coumadin held as well - initially with thought of resuming once it was clear that GI bleeding was stable and ulcerations had begun to heal. obviously this is now a problem for ongoing consideration balancing bleed risk with ulcers vs DVT/stroke risk w afib and lymphoma. currently needs to be held, would consider resuming if he's not showing an active decline in relationship to the cancer in the coming weeks, otherwise hold indefinitely Current Hospital Diet Patient's current hospital diet: Regular Diet Discharge Diet Recommended Diet: Regular Diet Procedures Procedures Performed: EGD with biopsy Pending Studies Studies pending at discharge: no Laboratory Results Hemoglobin A1c Test 07/17/17 19:14 Range/Units Estimated Average Glucose 117 mg/dl Hemoglobin A1c 5.7 H 4.5-5.6 % Lipid Panel Test 07/17/17 19:14 Range/Units Triglycerides Level 85 0-150 mg/dl Cholesterol Level 164 0-200 mg/dl HDL Cholesterol 39 mg/dl Cholesterol/HDL Ratio 4.2 LDL Cholesterol, Calculated 108 mg/dl Medical Emergencies . Who to Call and When: Medical Emergencies: If at any time you feel your situation is an emergency, please call 911 immediately. . Non-Emergent Contact Non-Emergency issues call your: Primary Care Provider . . "Provider Documentation" section prepared by Jaylan Billy. . Core Measure Problem Core Measures: None
--- NOTE | 2017-08-02 13:56 | Palliative Care Consultation ---
Consultation Date of Consultation: Aug 02, 2017. Requesting Physician: Dr. Billy Attending Physician: Dr. Billy Reason for Consultation: Goals of care History of Present Illness This 89 year old male patient with PMH prostate cancer, Non-Hodgkin's lymphoma, afib, and others listed below, presented to the hospital four days ago with GI bleed. He came from his PCP for INR of 6.4 and black tarry stools. He was on Coumadin for Afib as well as ASA. EGD was performed, biopsy of stomach ulcer shows a very aggressive form of NHL. Dr. Ball met with the patient and family yesterday and discussed this diagnosis as well as the fact that any treatment for this cancer would be aggressive and toxic which the patient would likely not tolerate well. After discussion, the patient and family expressed that they would like to pursue comfort measures and hospice. Palliative care is consulted. I met with the patient first in room 410. He is awake, alert and oriented with mild forgetfulness. He was able to recap the conversation with Dr. Ball yesterday and confirmed the fact that he wanted to be made comfortable and does not want any further aggressive medical treatment. Patient states he wants to go back to the [facility], skilled initially with therapy, with a transition to hospice. I discussed code status, patient DOES NOT want CPR or intubation. He wants comfort measures only, abx for comfort and no artificial hydration/ nutrition. I met later with patient's son Pablo and daughter Tamar, both of whom are POAs. POLST form was completed and signed by Pablo with patient's permission. Past Medical/Surgical History Medical History: Prostate cancer NHL Afib CHF DVT Heart disease Lyme disease Shingles Surgical History: Prostatectomy Appendectomy Social History Smoking Status: Never Smoker History of Alcohol Use: Yes (2 glasses wine/week) Drug Use: none Marital Status: Housing Status: lives with family Occupation Status: unemployed Review of Systems Constitutional: + weakness, No fever, No chills ENT: No trouble swallowing Respiratory: No cough, No shortness of breath Cardiac: No chest pain, No edema Abdomen: No pain, No nausea, No vomiting Musculoskeletal: + problem reported (occasional back pain when moving, especially when trying to get out of bed) Male : No problem reported Psychiatric: No depression symptoms, No anxiety Allergies Coded Allergies: Acetazolamide (Verified Allergy, Unknown, Diamox Eye Drops ? rxn, 07/23/17) Medications Current Inpatient Medications Medications (Trade) Dose Ordered Sig/Cj Route Start Time Stop Time Status Last Admin Dose Admin Nitroglycerin (Nitrostat Tab) 0.4 mg UD PRN SL 07/29/17 20:30 08/28/17 20:29 Ondansetron HCl (Zofran Odt) 8 mg Q6H PRN PO 07/29/17 20:45 08/28/17 20:44 07/29/17 22:36 8 MG Morphine Sulfate (MoRPHine SULFATE INJ) 2 mg Q2H PRN IV 07/29/17 20:45 08/12/17 20:44 08/01/17 19:02 2 MG Pantoprazole Sodium (Protonix Tab) 40 mg BID PO 07/30/17 21:00 08/29/17 20:59 08/02/17 08:10 40 MG Sucralfate (Carafate Susp) 1 gm QID PO 07/30/17 17:00 08/29/17 16:59 08/02/17 12:11 1 GM Metoprolol Succinate (Toprol Xl Tab) 25 mg QAM PO 08/01/17 08:00 08/31/17 08:59 08/02/17 08:10 25 MG Amiodarone HCl (Cordarone Tab) 200 mg BID PO 08/01/17 20:00 08/31/17 19:59 08/02/17 08:10 200 MG Gabapentin (Neurontin Cap) 300 mg BID PO 08/01/17 20:00 08/31/17 19:59 08/02/17 08:10 300 MG Physical Exam Date Time Temp Pulse Resp B/P (MAP) Pulse Ox O2 Delivery O2 Flow Rate FiO2 08/02/17 11:21 36.8 100 20 133/66 (88) 94 Room Air 08/02/17 08:15 Room Air 08/02/17 07:48 36.4 101 20 144/81 (102) 92 Room Air 08/02/17 00:00 Room Air 08/01/17 19:52 36.8 114 20 122/71 (88) 95 Room Air 08/01/17 16:00 Room Air 08/01/17 15:10 36.4 104 20 150/84 (106) 93 Room Air General Appearance: no apparent distress, + pertinent finding (elderly, somewhat frail) ENT: hearing grossly normal Neck: supple, no JVD Respiratory: lungs clear, no respiratory distress, no accessory muscle use Cardiovascular: regular rate, rhythm, no edema, + normal peripheral pulses Abdomen: normal bowel sounds, non tender, soft Neurologic/Psychiatric: alert, normal mood/affect, oriented x 3 Assessment & Plan Palliative Performance Scale: 40 % Problem list: Weakness Back pain NHL with bowel wall involvement Prostate cancer Supratherapeutic INR- resolved GI bleed- resolved Afib Goals of care (Z51.5) Palliative care recs: -Patient will now be DNR/DNI, level 5 resuscitation -POLST form completed as follows: 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 Son Pablo or daughter Tamar are decision makers for patient in the case he is unable. -Plan is for patient to return to [facility] today-- skilled with therapy initially with eventual transition to hospice. Does not wish to come back to hospital. -Recommend Tylenol for mild pain. If pain persists/worsens, can add Roxanol PRN later at the [facility]. Thank you kindly for this consult. Please contact me with any further palliative care needs.
--- NOTE | 2017-08-02 14:34 | CARDIOLOGY PROGRESS NOTE ---
DATE: 08/02/2017 DATE: 08/02/2017 SUBJECTIVE: Mr. Alfredo is resting comfortably in bed without complaints of chest pain or dyspnea. Seems somewhat confused this morning. OBJECTIVE: VITAL SIGNS: Blood pressure 133/66 with an irregular pulse of 100. Respiratory rate is 20. The patient is afebrile at 36.8 degrees Celsius. Saturation is 94% on room air. NECK: Supple with full carotid upstrokes. No obvious bruits. Jugular venous pressure is flat at 90 degrees. There is no thyromegaly. CARDIOVASCULAR: Reveals an irregular, irregular rhythm with distant heart sounds. No obvious murmurs. LUNGS: Clear without rales, rhonchi, or wheezes. ABDOMEN: Soft and nontender without bruits. EXTREMITIES: Reveal intact radial artery pulses bilaterally. There is no peripheral edema. LABORATORY DATA: CBC notes a hemoglobin of 13.6, hematocrit 40.9, white count 22.7, platelet count 101,000. Electrolytes note a sodium of 139, potassium 4.5, chloride 103, bicarbonate 21, BUN 22, creatinine 1.36, glucose 96. IMPRESSION AND PLAN: 1. Peptic ulcer disease -- per the GI team. 2. Persistent atrial fibrillation -- tolerating amiodarone and low dose metoprolol tartrate without difficulty. 3. Chronic systolic congestive heart failure -- compensated. 4. 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 5. Mild to moderate aortic insufficiency. 6. 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 7. History of mantle cell lymphoma. 8. Prostate carcinoma.
[2017-08-02 15:18] VITALS: BP 133/66; PULSE 100; TEMP 36.8; O2SAT 94
--- NOTE | 2017-08-02 16:18 | Discharge Summary ---
Discharge Summary Date of Service Aug 02, 2017. Discharge Summary Admission Date: Jul 29, 2017 at 20:27 Discharge Date: Aug 02, 2017 Discharge Disposition: assisted facility Principal Diagnosis: UGI bleeding due to gastric ulcers complicated by lymphoma Immunizations: Have You Had Influenza Vaccine: Unknown History of Tetanus Vaccine?: utd History of Pneumococcal: Unknown History of Hepatitis B Vaccine: No Procedures: DICTATED BY: Raman De La Garza D.O. Procedure Date: 07/30/2017 1:28 PM Procedure: Upper GI endoscopy Indications: Melena Medicines: Monitored Anesthesia Care Complications: No immediate complications. Estimated Blood Loss: Estimated blood loss: none. Procedure: Pre-Anesthesia Assessment: - Prior to the procedure, a History and Physical was performed, and patient medications and allergies were reviewed. The patient's tolerance of previous anesthesia was also reviewed. The risks and benefits of the procedure and the sedation options and risks were discussed with the patient. All questions were answered, and informed consent was obtained. Prior Anticoagulants: The patient last took aspirin 1 day and Coumadin (warfarin) 1 day prior to the procedure. ASA Grade Assessment: IV - A patient with severe systemic disease that is a constant threat to life. After reviewing the risks and benefits, the patient was deemed in satisfactory condition to undergo the procedure. After obtaining informed consent, the endoscope was passed under direct vision. Throughout the procedure, the patient's blood pressure, pulse, and oxygen saturations were monitored continuously. The Scope was introduced through the mouth, and advanced to the second part of duodenum. The upper GI endoscopy was accomplished without difficulty. The patient tolerated the procedure well. Findings: The esophagus was normal. Six non-bleeding cratered gastric ulcers with no stigmata of bleeding were found in the gastric fundus. The largest lesion was 15 mm in largest dimension. Biopsies were taken with a cold forceps for histology. The examined duodenum was normal. Impression: - Normal esophagus. - Non-bleeding gastric ulcers with no stigmata of bleeding. Biopsied. - Normal examined duodenum. Recommendation: - [facility]. - Use Protonix (pantoprazole) 40 mg PO BID. - Use sucralfate suspension 1 gram PO QID for 10 days. - Repeat upper endoscopy in 2 months to evaluate the response to therapy. - Await pathology results. Raman De La Garza DO 07/30/2017 1:49:20 PM This report has been signed electronically. Note Initiated On: 07/30/2017 1:28 PM I attest to the content of the Intraoperative Record and orders documented therein, exceptions below pathology from EGD: FINAL DIAGNOSIS GASTRIC ULCER, BIOPSIES: 1. HIGH-GRADE B-CELL NON-HODGKINS LYMPHOMA. SEE COMMENT. 2. H. PYLORI ORGANISMS PRESENT ON IMMUNOPEROXIDASE STAIN. Last Resulted CBC 08/01/17 05:32 Red Blood Count 4.51, Mean Corpuscular Volume 90.7, Mean Corpuscular Hemoglobin 30.2, Mean Corpuscular Hemoglobin Concent 33.3, Mean Platelet Volume 10.2 Last Resulted BMP 08/01/17 05:32 Consultations: GI heme/onc palliative Medication Reconciliation New Medications: Pantoprazole (Pantoprazole Sodium) 40 Mg Tab 40 MG PO BID, #60 TAB Sucralfate (Sucralfate) 1 Gm/10 Ml Susp 1 GM PO QID for 30 Days Continued Medications: Amiodarone Hcl (Cordarone) 200 Mg Tab 200 MG PO BID, TAB Bicalutamide (Casodex) 50 Mg Tab 50 MG PO QAM, TAB Calcium Carbonate-Vitamin D (Oyster Shell Calcium/D3 500-400 mg-Unit) 1 Tab Tab 2 TABS PO DAILY Furosemide (Furosemide) 20 Mg Tab 20-40 MG PO DAILY PRN for "DEPENDS ON WT GAIN"., #30 Gabapentin (Neurontin) 300 Mg Cap 300 MG PO BID, CAP Leuprolide Acetate (Lupron Depot) 30 Mg Kit 30 MG IM Q4MO Metoprolol Tartrate (Lopressor) 25 Mg Tab 12.5 MG PO BID, TAB Multivitamin (Multivitamin) Tab 1 TAB PO QAM, TAB [place]-3 Fatty Acids (Fish Oil 1200 mg) 1 Cap Cap 1200 MG PO DAILY Discontinued Medications: Aspirin (Aspirin Ec) 81 Mg Tab 81 MG PO QAM Ranitidine (Zantac) 150 Mg Tab 150 MG PO BID, TAB Warfarin Sodium (Coumadin) 5 Mg Tab 1 TAB PO 6XWK for 90 Days, TAB 1 Refill EVERY DAY EXCEPT MONDAYS. Warfarin Sodium (Warfarin Sodium) 5 Mg Tab 7.5 MG PO WK for 90 Days, TAB 3 Refills TAKES ON MONDAYS ONLY Discharge Exam Physical Exam: General Appearance: no apparent distress Eyes: EOMI ENT: hearing grossly normal Neck: trachea midline Respiratory/Chest: no respiratory distress, no accessory muscle use Abdomen / GI: non tender, soft Neurologic/Psychiatric: animal pathologist II-XII nml as tested, alert Hospital Course upper GI bleeding -due to stomach ulcers and coumadin coagulopathy -- underlying lymphoma also almost certainly playing a role, although appears that aspirin and coumadin still were significant factors -bleeding appears to have resolved. 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 related -oncology had extensive discussions w pt and family - palliative care warranted -peripheral blood also showing findings concerning underscoring above afib, prior DVT -w ulcers and bleeding above - continue off coumadin for now, but care home risk will favor resuming -- follow Hgb and clinical status closely as outpt and work to resume coumadin as soon as is safe -although this will be "work in progress" given not only the stomach ulcers but the lymphoma; and might be better dictated by his overall stability/decline peripheral neuropathy -gabapentin metastatic prostate cancer -outpt management Total Time Spent: Less than 30 minutes This includes examination of the patient, discharge planning, medication reconciliation, and communication with other providers. Discharge Instructions Please refer to the electronic Patient Visit Report (Discharge Instructions) for additional information. Additional Copies To Sameer Ku M.D.
== END 2017-08-02 16:18 | DRG 813 ==
LOC: EDBD 17:56 → C.EDB 17:58 → C.2E 20:27 → ENRESERV 20:48 → EDBEDREQSVC 07-31 16:22 → EDBEDREQ 07-31 16:22 → ENRESERV 07-31 16:38 → C.4E 07-31 17:20
PROVIDERS: ADMIT Hospitalist; ATTEND Family Medicine
PROC: 0DB68ZX Excision of Stomach, Via Natural or Artificial Opening Endoscopic, Diagnostic (ICD-10-PCS; principal; 2017-07-30 12:36)
DX: D68.32 Hemorrhagic disorder due to extrinsic circulating anticoagulants (principal); K25.4 Chronic or unspecified gastric ulcer with hemorrhage; C85.99 Non-Hodgkin lymphoma, unspecified, extranodal and solid organ sites; D62 Acute posthemorrhagic anemia; D61.82 Myelophthisis; I50.22 Chronic systolic (congestive) heart failure; I48.1 Persistent atrial fibrillation; T45.515A Adverse effect of anticoagulants, initial encounter; Z51.5 Encounter for palliative care; T39.015A Adverse effect of aspirin, initial encounter; G62.9 Polyneuropathy, unspecified; Z79.899 Other long term (current) drug therapy; Z79.01 Long term (current) use of anticoagulants; Z79.82 Long term (current) use of aspirin; Z66 Do not resuscitate; Z86.718 Personal history of other venous thrombosis and embolism; Z85.46 Personal history of malignant neoplasm of prostate; Z83.3 Family history of diabetes mellitus; Z82.49 Family history of ischemic heart disease and other diseases of the circulatory system

== ENCOUNTER → 2017-07-29 | Outpatient (CLI) | payer BC ==
[~2017-07-29] MED LIST changes: +AMIO200T4 PO; +ASPI81TA28 PO; +ZNTT/150 PO
[2017-07-29 16:37] LABS: HEMATOCRIT 39.2 % (42-52); HEMOGLOBIN 13.3 g/dL (14.0-18.0); MEAN CELL VOLUME 90.5 fL (80-100); MEAN CORPUSCULAR HEMOGLOBIN 30.7 pg (25-34); MEAN CORPUSCULAR HGB CONC 33.9 g/dl (32-36); MEAN PLATELET VOLUME 10.9 fL (7.4-10.4); PLATELET COUNT 136 K/uL (130-400); RED CELL DISTRIBUTION WIDTH CV 14.5 % (11.5-14.5); RED CELL DISTRIBUTION WIDTH SD 47.5 fL (36.4-46.3); WHITE BLOOD COUNT 13.32 K/uL (4.8-10.8)
[2017-07-29 16:59] LABS: INR 6.4 (0.9-1.1)
[2017-07-29 17:07] LABS: ALBUMIN 2.6 gm/dl (3.4-5.0); ALKALINE PHOSPHATASE 150 U/L (45-117); ALT/SGPT 23 U/L (12-78); AST/SGOT 75 U/L (15-37); BLOOD UREA NITROGEN 27 mg/dl (7-18); CALCIUM 9.6 mg/dl (8.5-10.1); CARBON DIOXIDE 24 mmol/L (21-32); CREATININE 1.38 mg/dl (0.60-1.40); GLUCOSE 113 mg/dl (70-99); POTASSIUM 4.4 mmol/L (3.5-5.1); SODIUM 134 mmol/L (136-145); TOTAL PROTEIN 5.7 gm/dl (6.4-8.2)
== END | disposition home or self-care (01) ==
LOC: C.LAB1850 15:39
PROVIDERS: ATTEND Physician Assistant Medical
DX: R42 Dizziness and giddiness (principal); R19.5 Other fecal abnormalities; I48.91 Unspecified atrial fibrillation